=== PATIENT | female | born 1940 | race Caucasian/White ===

== ENCOUNTER 2020-01-22 11:59 | Outpatient (CLI) | payer MEDICARE, SELFPAY ==
--- NOTE | ~2020-01-22 | XR_ITS ---
EXAMINATION: XR lumbar spine 2-3V DATE: 01/22/2020 12:35 INDICATION: Chronic low back pain. TECHNIQUE: 3 views of lumbar spine were obtained. COMPARISON: CT abdomen and pelvis 05/28/2019 FINDINGS: There is 5 degrees dextrocurvature of thoracolumbar spine. There is 4 mm anterolisthesis of L3 on L4. Vertebral body heights are normal. There is mildly decreased disc height at L4-L5 and mode rately decreased disc height at L5-S1. There are endplate osteophytes at all lumbar levels. There is multilevel facet joint osteoarthritis, severe in lower lumbar spine. There is a total right hip arthr oplasty. IMPRESSION: 1. Moderate lumbar spondylosis. Reviewed, dictated and finalized at location A.
== END 2020-01-22 12:00 | disposition home or self-care (01) ==
PROVIDERS: PCP Internal Medicine
DX: M47.896 Other spondylosis, lumbar region (principal)
CPT/HCPCS: 72100

== ENCOUNTER 2020-03-09 14:39 | Outpatient (CLI) | payer MEDICARE, SELFPAY ==
[2020-03-19 21:48] LABS: Calprotectin, Stool 102 mcg/g
== END 2020-03-09 14:40 | disposition home or self-care (01) ==
PROVIDERS: PCP Internal Medicine; Visit Provider Internal Medicine Gastroenterology
DX: R19.7 Diarrhea, unspecified (principal); K51.919 Ulcerative colitis, unspecified with unspecified complications
CPT/HCPCS: 83993; 87045; 87046; 87427; 89055

== ENCOUNTER 2020-04-20 00:33 | Outpatient (CLI) | payer MEDICARE, SELFPAY ==
[2020-04-20 16:32] LABS: SARS-CoV-2 RNA PCR Negative
== END 2020-04-20 00:34 | disposition home or self-care (01) ==
LOC: ANHCOVIDDT 00:33
PROVIDERS: PCP Internal Medicine; Visit Provider Internal Medicine Gastroenterology
DX: Z03.818 Encounter for observation for suspected exposure to other biological agents ruled out (principal)
CPT/HCPCS: 87635; C9803; U0003

== ENCOUNTER 2020-04-22 00:35 | Day surgery (SDC) | payer MEDICARE, SELFPAY ==
[2020-04-09 09:59] VITALS: BMI 22.3
[2020-04-22 06:25] VITALS: BP 144/86; PULSE 90; RESP 20; TEMP 37.1; O2SAT 100; BMI 22.0
[2020-04-22] MEDS: LACTATED RINGERS 1,000 ML 150 ML IV CONT (06:42)
--- NOTE | 2020-04-22 07:11 | WPDANESEPPF ---
Anes - Initial Pre Proc Eval Procedure: Operation Date: 04/22/20 07:30 Proposed Procedures p Colonoscopy - Eduardo Voss MD Date/Time: 04/22/20 07:11 Surgeon: Eduardo Voss MD Pre Op Diagnosis: colitis,diarrhea Patient Data Age: 79 Gender: F Height: 5 ft 4 in Weight: 58.3 kg Last Vital Signs Temp 37.1 C 04/22/20 06:25 Pulse 90 04/22/20 06:25 Resp 20 04/22/20 06:25 BP 144/86 H 04/22/20 06:25 Pulse Ox 100 04/22/20 06:25 Allergies Allergy/AdvReac Type Severity Reaction Status Date / Time No Known Allergies Allergy Unverified 04/22/20 06:23 Home Medications Medication Instructions Recorded Confirmed Type atorvastatin 10 mg PO DAILY 06/21/19 04/09/20 History celecoxib [Celebrex] 200 mg PO BID 06/21/19 04/09/20 History nifedipine 30 mg PO DAILY 06/21/19 04/09/20 History mesalamine 250 mg 1,000 mg PO .qd #120 cap 08/19/19 04/09/20 Rx capsule,controlled release omeprazole 40 mg capsule,delayed 40 mg PO DAILY #30 cap 08/19/19 04/09/20 Rx release peg 3350-electrolytes 236 240 ml PO Q10M #4000 ml 02/26/20 04/03/20 Rx gram-22.74 gram-6.74 gram-5.86 gram solution dicyclomine 10 mg PO TID PRN 04/09/20 04/09/20 History infliximab-dyyb [Inflectra] See Rx Instructions .ROUTE .COMPLEX 04/09/20 04/09/20 History levothyroxine 100 mcg PO DAILY 04/09/20 04/09/20 History hmfwmqvhhmgw-vic-pdkf-FA-vit K 1 tablet PO DAILY 04/09/20 04/09/20 History [Adults Multivitamin] zolpidem 10 mg PO HS PRN 04/09/20 04/09/20 History Patient hx anesthesia problems: none Family hx anesthesia problems: none PMFSH Past Medical History Medical History Diarrhea GERD (gastroesophageal reflux disease) Hyperlipidemia Hypertension Rash Ulcerative colitis Family History Family History Mother Family history of osteoporosis Family history of arthritis Father Hypertension Sibling Family history of Parkinson's disease Social History Social History Smoking status: Never smoker Alcohol intake: never Gender identity (if verbalized by the patient): Female Spiritual care concerns: No Anes - Eval Final PreProcedure Day of Procedure 04/22/20 07:11 Patient weight: normal Heart: regular rate and rhythm Lungs: clear to auscultation Airway: Mallampati scale class II Neurological: alert and oriented Last oral intake: >/= 8 hours ASA classification: III Emergent: no Anesthetic plan: proceed Anesthesia type and monitoring: general GIVS and standard monitoring Informed Consent: The patient's anesthetic plan and its attendant risks and benefits were discussed with the patient/family/POA. Questions were solicited and answers provided to the satisfaction of the patient/family/POA.
--- NOTE | 2020-04-22 07:37 | PM.HPGS ---
History of Present Illness History of Present Illness Consent: Risks, benefits, and alternatives have been discussed and questions answered. Patient agrees to proceed with procedure. Chief complaint: colitis,diarrhea Narrative: Marnie Bonds is a 79 year old female with UC diagnosed february 2019 now using inflectra Review of Systems Constitutional: Constitutional: Denies headache(s) and Denies weakness Eyes: Eyes: Denies blurry vision ENT: Reports Normal hearing present, Denies headache(s) and Denies neck pain Cardiovascular: Cardiovascular: Denies chest pain and Denies dyspnea Respiratory: Respiratory: Denies dyspnea Gastrointestinal: Gastrointestinal: Reports no additional gastrointestinal complaints Genitourinary: Genitourinary: Denies dysuria Musculoskeletal: Musculoskeletal: Denies neck pain Integumentary/Breasts: Skin/Breast: Denies dry skin Neurologic: Reports Normal hearing present, Denies headache(s) and Denies weakness Psychiatric: Psychiatric: Denies anxiety Endocrine: Endocrine: Denies change in body appearance Hematologic/Lymphatic: Hematologic/Lymphatic: Denies easy bleeding Allergic/Immunologic: Allergic/Immunologic: Denies urticaria PMFSH Past Medical History Medical History Diarrhea GERD (gastroesophageal reflux disease) Hyperlipidemia Hypertension Rash Ulcerative colitis Family History Family History Mother Family history of osteoporosis Family history of arthritis Father Hypertension Sibling Family history of Parkinson's disease Social History Social History Smoking status: Never smoker Alcohol intake: never Gender identity (if verbalized by the patient): Female Spiritual care concerns: No Meds Home Medications and Allergies Home Medications Medication Instructions Recorded Confirmed Type atorvastatin 10 mg PO DAILY 06/21/19 04/09/20 History celecoxib [Celebrex] 200 mg PO BID 06/21/19 04/09/20 History nifedipine 30 mg PO DAILY 06/21/19 04/09/20 History mesalamine 250 mg 1,000 mg PO .qd #120 cap 08/19/19 04/09/20 Rx capsule,controlled release omeprazole 40 mg capsule,delayed 40 mg PO DAILY #30 cap 08/19/19 04/09/20 Rx release peg 3350-electrolytes 236 240 ml PO Q10M #4000 ml 02/26/20 04/03/20 Rx gram-22.74 gram-6.74 gram-5.86 gram solution dicyclomine 10 mg PO TID PRN 04/09/20 04/09/20 History infliximab-dyyb [Inflectra] See Rx Instructions .ROUTE .COMPLEX 04/09/20 04/09/20 History levothyroxine 100 mcg PO DAILY 04/09/20 04/09/20 History ycflzecalzzk-lou-huiy-FA-vit K 1 tablet PO DAILY 04/09/20 04/09/20 History [Adults Multivitamin] zolpidem 10 mg PO HS PRN 04/09/20 04/09/20 History Allergies Allergy/AdvReac Type Severity Reaction Status Date / Time No Known Allergies Allergy Unverified 04/22/20 06:23 Vital Signs Vital Signs - 24 hr 04/22/20 06:25 Temperature 98.8 F Pulse Rate 90 Respiratory Rate 20 Blood Pressure 144/86 H Pulse Oximetry 100 Exam Const: General: comfortable and no acute distress HENMT: General nose exam: Normal nares present Eyes: General: appearance normal, both eyes and all related structures Neck: Neck: no JVD Resp: Auscultation: clear to auscultation bilaterally Cardio: Rate: regular rate Rhythm: regular rhythm GI: Inspection: non-distended GI Palp: Yes Soft to palpation Skin: General skin exam: normal color Neuro: General: gait normal Speech: normal speech Extrem: General: normal to inspection Psych: Mental Status: mental status grossly normal Assessment and Plan Assessment and plan (1) Ulcerative colitis, unspecified with unspecified complications: Qualifiers: Ulcerative colitis location: ulcerative pancolitis Qualified Code(s): K51.019 - Ulcerative (chronic) pancolitis with unspe
[2020-04-22 07:57] VITALS: BP 110/55; PULSE 77; RESP 20; O2SAT 97
[2020-04-22 08:07] VITALS: BP 125/70; PULSE 78; RESP 19; O2SAT 100
[2020-04-22 08:17] VITALS: BP 148/61; PULSE 73; RESP 19; O2SAT 100
== END 2020-04-22 08:25 | disposition home or self-care (01) ==
PROVIDERS: PCP Internal Medicine; Visit Provider Internal Medicine Gastroenterology
PROC: 0DJD8ZZ Inspection of Lower Intestinal Tract, Via Natural or Artificial Opening Endoscopic (ICD-10-PCS; CPT 45378; principal; 2020-04-22 07:30)
DX: K51.90 Ulcerative colitis, unspecified, without complications (principal); K57.30 Diverticulosis of large intestine without perforation or abscess without bleeding; K64.8 Other hemorrhoids; K21.9 Gastro-esophageal reflux disease without esophagitis; I10 Essential (primary) hypertension; E78.5 Hyperlipidemia, unspecified
CPT/HCPCS: 45380; 88305; J2704; J7120

== ENCOUNTER 2021-03-26 11:08 | Outpatient (CLI) | payer MEDICARE, SELFPAY ==
--- NOTE | ~2021-03-26 | XR_ITS ---
XR abdomen/kub 1V DATE: 03/26/2021 11:21 INDICATION: Left sided kidney stone TECHNIQUE: AP projection, 2 views COMPARISON: 04/28/2019 CT abdomen pelvis FINDINGS: Approximately 2 mm calcification overlying the upper pole left kidney which might be a smal l calcified renal calculus. No other obvious urinary tract calculus is noted. Noncontrast CT abdomen pelvis examination would be more definitive for identification of urinary tract calculi. The psoas shadows are intact. No visceromegaly. There is a moderately prominent amount fecal material within the colon but no evidence of bowel obstr uction. Cardiomegaly. Aortic calcification. The lower lung zones are clear. Status post right total hip arthroplasty Mild dextro scoliosis of the lumbar spine; degenerative disc disease of the lumbar spine. IMPRESSION: Nonspecific abdomen Reviewed, dictated and finalized at Location A. Reviewed, dictated and finalized at location A. IMPRESSION: Nonspecific abdomen
== END 2021-03-26 11:09 | disposition home or self-care (01) ==
PROVIDERS: PCP Internal Medicine; Visit Provider Nurse Practitioner Family
DX: N20.0 Calculus of kidney (principal)
CPT/HCPCS: 74018

== ENCOUNTER 2022-04-15 10:30 | Outpatient (CLI) | payer MEDICARE, SELFPAY ==
--- NOTE | ~2022-04-15 | XR_ITS ---
EXAMINATION: XR abdomen/kub 1V INDICATION: Left renal stone follow-up TECHNIQUE: Supine views of the abdomen were obtained on 2 radiographs. COMPARISON: 03/26/2021 FINDINGS: No definite urolithiasis is identified. A moderate volume of colonic stool is present. The visualized lung bases are clear. Bilateral breast implants are noted. Changes of total right hip arth roplasty are noted. There is moderate osteoarthritis of the left hip. Severe lumbar spondylosis is no brie. IMPRESSION: 1. No definite urolithiasis identified. Reviewed, dictated and finalized at location A.
== END 2022-04-15 10:31 | disposition home or self-care (01) ==
PROVIDERS: PCP Internal Medicine; Visit Provider Nurse Practitioner Adult Health
DX: N20.0 Calculus of kidney (principal)
CPT/HCPCS: 74018

== ENCOUNTER 2022-05-25 12:03 | Day surgery (SDC) | payer MEDICARE, SELFPAY ==
[2022-05-12 09:58] VITALS: BMI 22.8
[2022-05-25 12:50] VITALS: BP 170/84; PULSE 70; RESP 16; TEMP 36.9; O2SAT 100
[2022-05-25] MEDS: LACTATED RINGERS 1,000 ML 150 ML IV CONT (13:26)
--- NOTE | 2022-05-25 13:26 | SUR.PREOP ---
1315 pt/family informed of delay w/surgeon/acknowledges understanding/comfort measures provided.
--- NOTE | 2022-05-25 14:12 | WPDANESEPPF ---
Anes - Initial Pre Proc Eval Procedure: Operation Date: 05/25/22 13:45 Proposed Procedures p Esophagogastroduodenoscopy - Eduardo Voss MD Date/Time: 05/25/22 14:12 Surgeon: Eduardo Voss MD Pre Op Diagnosis: Epigastric Pain Patient Data Age: 81 Gender: F Height: 1.63 m Weight: 59.6 kg Last Vital Signs Temp 36.9 C 05/25/22 12:50 Pulse 70 05/25/22 12:50 Resp 16 05/25/22 12:50 BP 170/84 H 05/25/22 12:50 Pulse Ox 100 05/25/22 12:50 O2 Del Method Room Air 05/25/22 12:50 Allergies Allergy/AdvReac Type Severity Reaction Status Date / Time No Known Allergies Allergy Verified 05/25/22 12:43 Home Medications Medication Instructions Recorded Confirmed Type atorvastatin 10 mg tablet 10 mg PO DAILY 06/21/19 05/25/22 History nifedipine 30 mg tablet,extended 30 mg PO DAILY 06/21/19 05/25/22 History release 24 hr levothyroxine 100 mcg tablet 100 mcg PO DAILY 04/09/20 05/25/22 History multivit with minerals-iron 18 1 tablet PO DAILY 04/09/20 05/25/22 History mg-folic ac 400 mcg-vit K 25 mcg tablet (Adults Multivitamin) zolpidem 10 mg tablet 10 mg PO HS PRN Insomnia 04/09/20 05/25/22 History dicyclomine 10 mg capsule 10 mg PO TID PRN cramps #270 caps 07/15/21 05/25/22 Rx omeprazole 40 mg capsule,delayed 40 mg PO DAILY #90 caps 09/02/21 05/25/22 Rx release prednisone 5 mg tablet 5 mg PO DAILY 09/02/21 05/25/22 History tofacitinib 11 mg tablet,extended 11 mg PO DAILY 09/02/21 05/25/22 History release 24 hr (Xeljanz XR) mesalamine 250 mg capsule,extended See Rx Instructions .Route 11/23/21 05/25/22 Rx release (Pentasa) .COMPLEX #360 caps tramadol 50 mg tablet (Ultram) 50 mg PO TID PRN Pain, Moderate 05/12/22 05/25/22 History Patient hx anesthesia problems: none Family hx anesthesia problems: none Results Review: All pre-operative results and documents have been reviewed as part of the pre-operative evaluation. [facility] Past Medical History Medical History Arthritis Diarrhea GERD (gastroesophageal reflux disease) Hyperlipidemia Hypertension Rash Ulcerative colitis Family History Family History Mother Family history of osteoporosis Family history of arthritis Father Hypertension Sibling Family history of Parkinson's disease Social History Social History Smoking status: Never smoker Alcohol intake: current Substance use type: does not use Living arrangements: with family Gender identity (if verbalized by the patient): Female Spiritual care concerns: No Anes - Eval Final PreProcedure Day of Procedure 05/25/22 14:12 Patient weight: normal Heart: regular rate and rhythm Lungs: clear to auscultation Airway: Mallampati scale class II Neurological: alert and oriented Last oral intake: >/= 8 hours ASA classification: III Emergent: no Anesthetic plan: proceed Anesthesia type and monitoring: general GIVS and standard monitoring Results Review: All pre-operative results and documents have been reviewed as part of the pre-operative evaluation. Informed Consent: The patient's anesthetic plan and its attendant risks and benefits were discussed with the patient/family/POA. Questions were solicited and answers provided to the satisfaction of the patient/family/POA.
--- NOTE | 2022-05-25 14:32 | PM.HPGS ---
History of Present Illness History of Present Illness Consent: Risks, benefits, and alternatives have been discussed and questions answered. Patient agrees to proceed with procedure. Chief complaint: Epigastric Pain Narrative: Marnie Bonds is a 81 year old female with more gerd symptoms but better after ppi increased to twice daily Review of Systems Constitutional: Constitutional: Denies headache(s) and Denies weakness Eyes: Eyes: Denies blurry vision ENT: Reports Normal hearing present, Denies headache(s) and Denies neck pain Cardiovascular: Cardiovascular: Denies chest pain and Denies dyspnea Respiratory: Respiratory: Denies dyspnea Gastrointestinal: Gastrointestinal: Reports no additional gastrointestinal complaints Genitourinary: Genitourinary: Denies dysuria Musculoskeletal: Musculoskeletal: Denies neck pain Integumentary/Breasts: Skin/Breast: Denies dry skin Neurologic: Reports Normal hearing present, Denies headache(s) and Denies weakness Psychiatric: Psychiatric: Denies anxiety Endocrine: Endocrine: Denies change in body appearance Hematologic/Lymphatic: Hematologic/Lymphatic: Denies easy bleeding Allergic/Immunologic: Allergic/Immunologic: Denies urticaria PMFSH Past Medical History Medical History Arthritis Diarrhea GERD (gastroesophageal reflux disease) Hyperlipidemia Hypertension Rash Ulcerative colitis Family History Family History Mother Family history of osteoporosis Family history of arthritis Father Hypertension Sibling Family history of Parkinson's disease Social History Social History Smoking status: Never smoker Alcohol intake: current Substance use type: does not use Living arrangements: with family Gender identity (if verbalized by the patient): Female Spiritual care concerns: No Meds Home Medications and Allergies Home Medications Medication Instructions Recorded Confirmed Type atorvastatin 10 mg tablet 10 mg PO DAILY 06/21/19 05/25/22 History nifedipine 30 mg tablet,extended 30 mg PO DAILY 06/21/19 05/25/22 History release 24 hr levothyroxine 100 mcg tablet 100 mcg PO DAILY 04/09/20 05/25/22 History multivit with minerals-iron 18 1 tablet PO DAILY 04/09/20 05/25/22 History mg-folic ac 400 mcg-vit K 25 mcg tablet (Adults Multivitamin) zolpidem 10 mg tablet 10 mg PO HS PRN Insomnia 04/09/20 05/25/22 History dicyclomine 10 mg capsule 10 mg PO TID PRN cramps #270 caps 07/15/21 05/25/22 Rx omeprazole 40 mg capsule,delayed 40 mg PO DAILY #90 caps 09/02/21 05/25/22 Rx release prednisone 5 mg tablet 5 mg PO DAILY 09/02/21 05/25/22 History tofacitinib 11 mg tablet,extended 11 mg PO DAILY 09/02/21 05/25/22 History release 24 hr (Xeljanz XR) mesalamine 250 mg capsule,extended See Rx Instructions .Route 11/23/21 05/25/22 Rx release (Pentasa) .COMPLEX #360 caps tramadol 50 mg tablet (Ultram) 50 mg PO TID PRN Pain, Moderate 05/12/22 05/25/22 History Allergies Allergy/AdvReac Type Severity Reaction Status Date / Time No Known Allergies Allergy Verified 05/25/22 12:43 Vital Signs Vital Signs - 24 hr 05/25/22 12:50 Temperature 98.4 F Pulse Rate 70 Respiratory Rate 16 Blood Pressure 170/84 H Pulse Oximetry 100 Oxygen Delivery Room Air Exam Const: General: comfortable and no acute distress HENMT: Face/Nose/Sinus: Normal nares present Eyes: General: appearance normal, both eyes and all related structures Neck: Neck: no JVD Resp: Auscultation: clear to auscultation bilaterally Cardio: Rate: regular rate Rhythm: regular rhythm GI: Inspection: non-distended GI Palp: Yes Soft to palpation Skin: General skin exam: normal color Neuro: General: gait normal Speech: normal speech Extrem: General: normal to inspection Psych: Ment
[2022-05-25 14:39] VITALS: BP 159/65; PULSE 78; RESP 16; O2SAT 96
[2022-05-25 14:49] VITALS: BP 148/67; PULSE 75; RESP 16; O2SAT 97
--- NOTE | 2022-05-25 14:52 | WPDANESPN ---
Anes - Prog Note Post-Op Date/Time: 05/25/22 14:52 Cardiovascular status: normal Respiratory status: normal Airway patency: baseline Mental status: baseline Post-Op hydration status: normal Vital Signs: Last Vital Signs Temp 36.9 C 05/25/22 12:50 Pulse 78 05/25/22 14:39 Resp 16 05/25/22 14:39 BP 159/65 H 05/25/22 14:39 Pulse Ox 96 05/25/22 14:39 O2 Del Method Room Air 05/25/22 14:39 Pain Score (VAS): 0 I/O: Intake & Output 05/24/22 05/25/22 05/25/22 23:59 07:59 15:59 Intake Total 300 Balance 300 Patient Feedback: Patient satisfied with anesthetic care.
--- NOTE | 2022-05-25 14:56 | SUR.PHASEII ---
PT AWAKE AND ALERT. DENIES PAIN. DRINKING JUICE. SPOUSE AT BEDSIDE
[2022-05-25 15:00] VITALS: BP 171/74; PULSE 76; RESP 16
--- NOTE | 2022-05-25 15:01 | SUR.PHASEII ---
PT AWAKE AND ALERT. DENIES PAIN. STATES SHE IS READY TO GO HOME.
== END 2022-05-25 15:09 | disposition home or self-care (01) ==
PROVIDERS: PCP Internal Medicine; Visit Provider Internal Medicine Gastroenterology
PROC: 0DJ08ZZ Inspection of Upper Intestinal Tract, Via Natural or Artificial Opening Endoscopic (ICD-10-PCS; CPT 43235; principal; 2022-05-25 13:45)
DX: K21.9 Gastro-esophageal reflux disease without esophagitis (principal)
CPT/HCPCS: 43239

== ENCOUNTER 2022-05-25 14:05 | Outpatient (NON) | payer MEDICARE, SELFPAY | END 2022-05-25 14:06 | disposition home or self-care (01) | LOC: ANHLAB 05-26 14:05 | PROVIDERS: PCP Internal Medicine; Visit Provider Internal Medicine Gastroenterology | DX: K21.9 Gastro-esophageal reflux disease without esophagitis (principal) | CPT/HCPCS: 88305 ==

== ENCOUNTER 2022-06-15 12:51 | Outpatient (CLI) | payer MEDICARE, SELFPAY ==
--- NOTE | ~2022-06-15 | CT_ITS ---
EXAMINATION: CT abdomen pelvis wo con DATE: 06/15/2022 13:32 INDICATION: Chronic cystitis without hematuria TECHNIQUE: Computed tomography (CT) of the abdomen and pelvis was performed without intravenous contr ast. Automated exposure control and iterative reconstruction technique were employed. Exam dose: 246 .98 mGy-cm total exam DLP. COMPARISON: 06/15/2022 KUB 04/28/2019 CT abdomen pelvis with IV contrast material FINDINGS: There is minimal discoid atelectasis or scarring at the lung bases. No basilar consolidatio n. Cardiomegaly. No pericardial or pleural effusion. Bilateral augmentation mammoplasty is noted. Multiple hepatic cysts are again noted. The gallbladder is present and appears unremarkable. No peric holecystic fluid or fat stranding. No bile duct or pancreatic duct dilatation. No pancreatic mass les ion or calcification is noted. Normal splenic size. No adrenal space-occupying mass lesion. Kidneys are unremarkable on this limited noncontrast examinat ion. No urinary tract calculus or hydroureteronephrosis. The urinary bladder appears unremarkable. No gallbladder wall thickening or pericystic fat infiltration. The uterus appears to be absent or atrop hic. No adnexal mass lesion. There is atherosclerotic calcification but no aneurysm of the abdominal aorta or iliac arteries. No i ntraperitoneal or retroperitoneal or pelvic mass lesion or adenopathy or ascites is evident. There is diverticulosis of left and right colon; no CT evidence of diverticulitis. No bowel obstructi on or intraperitoneal free air. Small fat-containing umbilical hernia. Status post right total hip arthroplasty. There is grade 1 anterolisthesis at L4-5 due to degenerative change at the apophyseal joints. Moderat e degenerative disc disease at L4-5. Severe degenerative disc disease and minimal retrolisthesis at L 5-S1. IMPRESSION: Multiple hepatic cysts are again noted Diverticulosis of left and right colon; no evidence of diverticulitis Status post right total hip arthroplasty Reviewed, dictated and finalized at Location [facility]. Reviewed, dictated and finalized at location A.
--- NOTE | ~2022-06-15 | XR_ITS ---
EXAM: XR abdomen/kub 1V DATE: 06/15/2022 13:27 HISTORY: CHRONIC CYSTITIS W/O HEMATURIA . COMPARISON: 04/15/2022. FINDINGS: Partially visualized, uncomplicated appearing right hip arthroplasty hardware. Normal kindra l gas pattern. No organomegaly. Scattered vascular calcifications. Degenerative disc disease in the l umbar spine. Moderate left hip osteoarthritis. Osteitis pubis. IMPRESSION: No radiographic findings to explain symptoms of chronic cystitis and hematuria. Reviewed, dictated and finalized at location K. IMPRESSION: No radiographic findings to explain symptoms of chronic cystitis an d hematuria.
== END 2022-06-15 12:52 | disposition home or self-care (01) ==
PROVIDERS: PCP Internal Medicine; Visit Provider Nurse Practitioner Adult Health
DX: N30.20 Other chronic cystitis without hematuria (principal); K76.89 Other specified diseases of liver; K57.30 Diverticulosis of large intestine without perforation or abscess without bleeding
CPT/HCPCS: 74018; 74176

== ENCOUNTER 2022-12-27 11:45 | Outpatient (CLI) | payer MEDICARE, SELFPAY ==
--- NOTE | ~2022-12-27 | XR_ITS ---
XR lumbar spine 2-3V 12/27/2022 12:08 Indication: Low back pain Procedure: 3 views lumbar spine Comparison: 01/22/2020 Findings: There is disc narrowing at L4-5 and L5-S1. There is chronic grade 1 spondylolisthesis at L4 -5 secondary to facet hypertrophy. There are also facet degenerative changes at L3-4 and L5-S1. No ac [place] fracture or traumatic malalignment. There is atherosclerosis of the abdomen. There is dextroscoli osis. Moderate colonic fecal loading. Are Impression: 1: Moderate lumbar spondylosis without significant interval change. Reviewed, dictated and finalized at location L. Impression: 1: Moderate lumbar spondylosis without significant interval change.
== END 2022-12-27 11:46 | disposition home or self-care (01) ==
PROVIDERS: PCP Internal Medicine; Visit Provider Internal Medicine
DX: M47.896 Other spondylosis, lumbar region (principal)
CPT/HCPCS: 72100

== ENCOUNTER 2023-02-09 13:47 | Outpatient (CLI) | payer MEDICARE, SELFPAY ==
--- NOTE | ~2023-02-09 | XR_ITS ---
EXAMINATION: XR abdomen/kub 1V INDICATION: Nausea and vomiting TECHNIQUE: Supine views of the abdomen were obtained on 2 radiographs. COMPARISON: 06/15/2022 FINDINGS: There are no dilated loops of bowel. A large volume of colonic stool is present. Changes of right total hip arthroplasty are noted. There is moderate osteoarthritis of the left hip. IMPRESSION: 1. Constipation. Reviewed, dictated and finalized at location L. IMPRESSION: 1. Constipation.
[2023-02-09 15:03] LABS: Hematocrit 38.3 % (37.0-47.0); Mean Corpuscular HGB Conc 33.9 g/dl (32-36); Mean Corpuscular Hemoglobin 31.9 pg (26-34); Mean Corpuscular Volume 94.1 fl (80-100); Mean Platelet Volume 8.9 fl (7.4-10.4); Platelet Count Result 280 k/mm3 (150-375); Red Blood Count 4.07 M/mm3 (4.2-5.4); Red Cell Distribution Width 13.1 % (11.5-14.5); White Blood Count 7.3 K/mm3 (4.5-10.0)
[2023-02-09 15:17] LABS: Alanine Aminotransferase 25 U/L (6-35); Albumin Level 4.3 g/dL (3.5-5.1); Alkaline Phosphatase 49 U/L (38-126); Amylase 66 U/L (30-110); Anion Gap 7 mmol/L (8-16); Aspartate Amino Transferase 29 U/L (14-36); Bilirubin,Total 0.5 mg/dL (0.2-1.3); Blood Urea Nitrogen 34 mg/dL (7-17); CRP < 0.5 mg/dL (<1.0); Calcium 9.8 mg/dL (8.4-10.2); Carbon Dioxide 25 mmol/L (22-30); Chloride 100 mmol/L (98-107); Estimated Glomerular Filt Rate 60; Glucose 112 mg/dL (65-110); Lipase 135 U/L (23-300); Potassium 3.9 mmol/L (3.4-5.0); Sodium 132 mmol/L (137-145)
[2023-02-09 15:27] LABS: Erythrocyte Sedimentation Rate 20 mm/hr (0-20)
== END 2023-02-09 13:48 | disposition home or self-care (01) ==
LOC: ANHIMG 13:52
PROVIDERS: Nurse Practitioner; PCP Internal Medicine; Visit Provider Nurse Practitioner Adult Health
DX: K59.00 Constipation, unspecified (principal); R14.0 Abdominal distension (gaseous); R68.81 Early satiety; R11.2 Nausea with vomiting, unspecified; K51.919 Ulcerative colitis, unspecified with unspecified complications; R10.819 Abdominal tenderness, unspecified site; K21.9 Gastro-esophageal reflux disease without esophagitis
CPT/HCPCS: 36415; 74018; 80053; 82150; 83690; 85027; 85652; 86140

== ENCOUNTER 2023-02-17 13:39 | Outpatient (CLI) | payer MEDICARE, SELFPAY ==
--- NOTE | ~2023-02-17 | CT_ITS ---
EXAMINATION: CT abdomen pelvis w con DATE: 02/17/2023 14:06 INDICATION: Nausea. Early satiety. TECHNIQUE: Computed tomography (CT) of the abdomen and pelvis was performed with 100 mL Omnipaque 350 intravenous contrast. Automated exposure control and iterative reconstruction technique were employe d. The dose-length product was 302.29 mGy-cm. COMPARISON: CT abdomen and pelvis 06/15/2022 FINDINGS: The visualized portions of the lung bases demonstrate mild atelectasis. No pleural effusion . Breast implants are noted. Cardiomegaly is noted. No pericardial effusion. There are coronary arter y calcifications. There are cysts in the liver measuring up to 3.1 cm. The gallbladder, spleen, pancr eas, and adrenal glands are normal. There are cysts in the kidneys measuring up to 7 mm on the right. There is calcified atherosclerosis of the aorta and many of the other arteries. There is diverticulo sis of the colon without evidence of diverticulitis. There are no dilated loops of bowel. The appendi x is not visualized. There are no pathologically enlarged lymph nodes. There is no free intraperitone al fluid. There is a total right hip arthroplasty. There is severe lumbar spondylosis. IMPRESSION: 1. No etiology for the patient's symptoms. Reviewed, dictated and finalized at location A.
== END 2023-02-17 13:40 | disposition home or self-care (01) ==
PROVIDERS: PCP Internal Medicine; Visit Provider Nurse Practitioner
DX: R10.819 Abdominal tenderness, unspecified site (principal); R14.0 Abdominal distension (gaseous); R68.81 Early satiety; R11.2 Nausea with vomiting, unspecified
CPT/HCPCS: 74177; Q9967

== ENCOUNTER 2023-02-22 09:01 | Outpatient (CLI) | payer MEDICARE, SELFPAY ==
--- NOTE | ~2023-02-22 | NM_ITS ---
EXAM: NM gastric emptying study DATE: 02/22/2023 16:06 INDICATION: Nausea and vomiting. Early satiety. TECHNIQUE: A gastric emptying study was performed using the methodology of Daniel RUIZ, et al. J Nucl Med 2007; 48:568-572. The patient was given a meal consisting of 2 scrambled eggs labeled with 1.080 mCi Tc-99m sulfur colloid, 2 slices of toast, two packages of jam, and approximately 120 mL of water . Simultaneous anterior and posterior 1-min images of the abdomen were obtained with the patient supi ne at multiple time points over a total period of 4 hours. The geometric mean of anterior and posteri or views was determined, and the percentage retention was calculated for each time point. COMPARISON: CT abdomen and pelvis 02/17/2023 FINDINGS: Gastric retention of the radiotracer-labeled meal was 70%, 37%, and 6% at the 1-hour, 2-ho ur, and 4-hour time points, respectively. With this technique, apparent rapid gastric emptying is sug gested by <30% gastric retention at 1 hour. Delayed gastric emptying is defined by gastric retention of >90% at 1 hour, >60% retention at 2 hours, or >10% retention at 4 hours. IMPRESSION: 1. Normal gastric emptying. Reviewed, dictated and finalized at location E. IMPRESSION: 1. Normal gastric emptying.
== END 2023-02-22 09:02 | disposition home or self-care (01) ==
PROVIDERS: PCP Internal Medicine; Visit Provider Nurse Practitioner
DX: R11.2 Nausea with vomiting, unspecified (principal); R68.81 Early satiety; R14.0 Abdominal distension (gaseous); K21.9 Gastro-esophageal reflux disease without esophagitis
CPT/HCPCS: 78264; A9541

== ENCOUNTER 2023-04-10 15:46 | Outpatient (NON) | payer MEDICARE, SELFPAY ==
[2023-04-10 17:40] LABS: Color Synovial Fluid Yellow (Colorless); Crystals Synovial Fluid None Seen (None Seen); Source Synovial Fluid Synovial fluid
[2023-04-10 17:41] LABS: Appearance Synovial Fluid Hazy (Clear)
[2023-04-10 17:42] LABS: Lymphocytes Synovial Fluid 34 %; Monocytes Synovial Fluid 62 %; Neutrophils Synovial Fluid 4 % (0-25)
[2023-04-11 13:39] LABS: RBC Synovial Fluid 3000 /uL (0-0)
[2023-04-11 13:47] LABS: Nucleated Cell Synovial Fluid 78 /uL (0-200)
== END 2023-04-10 15:47 | disposition home or self-care (01) ==
LOC: ANHLAB 15:48
PROVIDERS: PCP Internal Medicine; Visit Provider Orthopaedic Surgery
DX: M17.12 Unilateral primary osteoarthritis, left knee (principal); M25.462 Effusion, left knee
CPT/HCPCS: 87070; 87075; 87205; 89051; 89060

== ENCOUNTER 2023-06-26 14:34 | Outpatient (CLI) | payer MEDICARE, SELFPAY ==
--- NOTE | ~2023-06-26 | US_ITS ---
EXAMINATION: US venous doppler [facility] DATE: 06/26/2023 16:36 INDICATION: Left lower limb edema. TECHNIQUE: Grayscale ultrasound images without and with compression and Doppler ultrasound images of the left lower extremity veins were obtained. COMPARISON: None. FINDINGS: The visualized portions of left common femoral vein, profunda (deep) femoral vein, femoral vein, popl iteal vein, peroneal veins, posterior tibial veins, and greater saphenous vein outflow are patent. IMPRESSION: 1. No deep venous thrombosis. Reviewed, dictated and finalized at location A. [employer]
== END 2023-06-26 14:35 | disposition home or self-care (01) ==
PROVIDERS: PCP Internal Medicine; Visit Provider Orthopaedic Surgery
DX: R60.0 Localized edema (principal)
CPT/HCPCS: 93971

== ENCOUNTER 2023-07-20 13:04 | Emergency (ER) | payer MEDICARE, SELFPAY ==
--- NOTE | ~2023-07-20 | CT_ITS ---
EXAMINATION: CT abdomen pelvis w con DATE: 07/20/2023 18:25 INDICATION: Abdominal pain. Diarrhea. Nausea. TECHNIQUE: Computed tomography (CT) of the abdomen and pelvis was performed with 100 mL Omnipaque 350 intravenous contrast. Automated exposure control and iterative reconstruction technique were employe d. The dose-length product was 277.13 mGy-cm. COMPARISON: CT abdomen and pelvis 02/17/2023 FINDINGS: The visualized portions of the lung bases demonstrate mild atelectasis. Cardiomegaly is not ed. There are coronary artery calcifications. No pericardial effusion. There are bilateral breast imp lants. There are cysts in the liver measuring up to 3.4 cm. The spleen, pancreas, and adrenal glands are normal. There is cortical thinning of the kidneys. There are cysts in the kidneys measuring up to 6 mm on the right. There is calcified atherosclerosis of the aorta and many of the other arteries. T here is diverticulosis of the colon without evidence of diverticulitis. The appendix is not visualize d. There are no pathologically enlarged lymph nodes. There is no free intraperitoneal fluid. There is a total right hip arthroplasty. There is severe lumbar and lower thoracic spondylosis. IMPRESSION: 1. No etiology for the patient's symptoms. Reviewed, dictated and finalized at location E. ICAL SERVICES DIRECTOR
[2023-07-20 13:05] VITALS: BP 180/101; PULSE 94; RESP 18; TEMP 36.8; O2SAT 99
[2023-07-20 16:10] VITALS: BP 148/80; PULSE 98; RESP 18; O2SAT 100
[2023-07-20 17:56] LABS: Basophils Percent Auto 0.1 % (0.2-1.2); Hematocrit 35.8 % (37.0-47.0); Hemoglobin 12.2 g/dL (12.0-15.0); Immature Granulocyte Absolute 0.02 K/mm3 (0.00-0.031); Immature Granulocyte Percent A 0.3 % (0-0.5); Lymphocytes Absolute Auto 1.32 K/mm3 (0.9-3.2); Lymphocytes Percent Auto 17.9 % (18.3-44.2); Mean Corpuscular HGB Conc 34.1 g/dl (32-36); Mean Corpuscular Hemoglobin 30.6 pg (26-34); Mean Corpuscular Volume 89.7 fl (80-100); Mean Platelet Volume 9.3 fl (7.4-10.4); Monocytes Absolute Auto 0.6 K/mm3 (0.1-0.6); Monocytes Percent Auto 8.3 % (2.6-8.5); Neutrophils Absolute Auto 5.4 K/mm3 (1.3-6.7); Neutrophils Percent Auto 73.4 % (45.5-73.1); Platelet Count Result 236 k/mm3 (150-375); Red Blood Count 3.99 M/mm3 (4.2-5.4); Red Cell Distribution Width 12.5 % (11.5-14.5); White Blood Count 7.4 K/mm3 (4.5-10.0)
[2023-07-20 18:06] LABS: Alanine Aminotransferase 22 U/L (6-35); Albumin Level 4.6 g/dL (3.5-5.1); Alkaline Phosphatase 73 U/L (38-126); Anion Gap 12 mmol/L (8-16); Aspartate Amino Transferase 34 U/L (14-36); Bilirubin,Total 0.6 mg/dL (0.2-1.3); Blood Urea Nitrogen 31 mg/dL (7-17); Calcium 10.3 mg/dL (8.4-10.2); Carbon Dioxide 21 mmol/L (22-30); Chloride 97 mmol/L (98-107); Estimated CRCL calculation 38 ml/min; Estimated Glomerular Filt Rate > 60; Glucose 123 mg/dL (65-110); Lipase 128 U/L (23-300); Potassium 3.6 mmol/L (3.4-5.0); Sodium 130 mmol/L (137-145)
[2023-07-20] MEDS: SODIUM CHLORIDE 0.9% IV 500 ML 999 ML IV CONT (18:10)
--- NOTE | 2023-07-20 18:10 | ED.ABDPAIN ---
HPI - Abdominal Pain General Chief Complaint: Abdominal Pain Stated Complaint: abdominal pain Time Seen by Provider: 07/20/23 17:47 Source: patient Mode of arrival: ambulatory Limitations: no limitations History of Present Illness HPI narrative: This is a 82 year old female that presents to the ER for abdominal pain and diarrhea. Ongoing over the last 4 days. Reports history of ulcerative colitis. She was started on Budesonide today by her GI doctor, but they were unable to see her which prompted her to be seen in the ER. Reports some nausea. Denies fevers or vomiting. Related Data Home Medications Medication Instructions Recorded Confirmed atorvastatin 10 mg tablet 10 mg PO DAILY 06/21/19 02/09/23 nifedipine 30 mg tablet,extended 30 mg PO DAILY 06/21/19 02/09/23 release 24 hr levothyroxine 100 mcg tablet 100 mcg PO DAILY 04/09/20 02/09/23 multivit with minerals-iron 18 1 tablet PO DAILY 04/09/20 02/09/23 mg-folic ac 400 mcg-vit K 25 mcg tablet (Adults Multivitamin) zolpidem 10 mg tablet 10 mg PO HS PRN Insomnia 04/09/20 02/09/23 tramadol 50 mg tablet (Ultram) 50 mg PO TID PRN Pain, Moderate 05/12/22 02/09/23 cephalexin 250 mg capsule 250 mg PO Q12H 02/09/23 02/09/23 Allergies Allergy/AdvReac Type Severity Reaction Status Date / Time No Known Allergies Allergy Verified 07/20/23 13:05 Review of Systems Review of Systems: CONSTITUTIONAL: Denies fever GASTROINTESTINAL: Reports abdominal pain, nausea, and diarrhea. Denies vomiting GENITOURINARY: Denies dysuria All systems reviewed & are unremarkable except as noted in HPI and below PMFSH Past Medical History Medical History (Updated 07/20/23 @ 20:00 by Letitia Polanco PA-C) Abdominal tenderness Appetite loss Arthritis Bloating Colitis Diarrhea Early satiety GERD (gastroesophageal reflux disease) Hiatal hernia Hyperlipidemia Hypertension Microscopic colitis Nausea and vomiting Rash Rectal bleeding Rheumatoid arthritis Ulcerative colitis Family History Family History Mother Family history of osteoporosis Family history of arthritis Father Hypertension Sibling Family history of Parkinson's disease Social History Social History Smoking status: Never smoker Alcohol intake: current Substance use type: does not use Living arrangements: with family Gender identity (if verbalized by the patient): Female Spiritual care concerns: No Exam Narrative: GENERAL: Well-appearing, well-nourished, and in no acute distress. HEAD: Normocephalic, atraumatic. EYES: EOMI. CHEST: Clear to auscultation. No respiratory distress. No wheezes rales or rhonchi HEART: Regular rate and rhythm. No murmur heard. Normal peripheral pulses. ABDOMEN: Soft, nondistended, normal active bowel sounds. Tender to palpation throughout the abdomen, without guarding EXTREMITIES: Normal range of motion. No edema. SKIN: Warm, dry, no rash. NEURO: No focal deficits. Alert and oriented x3. PSYCH: Normal mood and affect Course Course Emergency Course: Patient updated on workup and agrees with plan of care Consultations Consultation #1: Spoke with Dr. Voss about patient and workup. Reports she has history of microscopic colitis. Agrees with continuing Budesonide and adding on Flagyl. She is to follow up in clinic Date: 07/20/23 Time: 19:18 Vital Signs Vital signs: Vital Signs Temperature 98.3 F 07/20/23 13:05 Pulse Rate 94 07/20/23 13:05 Respiratory Rate 18 07/20/23 13:05 Blood Pressure 180/101 H 07/20/23 13:05 Pulse Oximetry 99 07/20/23 13:05 Oxygen Delivery Room Air 07/20/23 13:05 Temperature 98.3 F 07/20/23 13:05 Pulse Rate 88 07/20/23 18:29 Respiratory Rate 16 07/20/23 18:29 Blood Pressure 145/72 H 07/20/23 18:29 Pulse Oximetry 100 07/20/23 18:29 Oxygen Delivery Room Air 07/20/23
[2023-07-20] MEDS: ONDANSETRON INJ 4 MG/2 ML VIAL IV PUSH (18:11)
[2023-07-20 18:29] VITALS: BP 145/72; PULSE 88; RESP 16; O2SAT 100
[2023-07-20] MEDS: MORPHINE SULFATE (*CRX) 4 MG/ML INJ IV PUSH (18:29)
[2023-07-20 19:07] LABS: Add Urine Microscopic? YES; Appearance Urine Clear (Clear); Bacteria Urine None Seen /hpf; Bilirubin Urine Negative (Negative); Blood Urine 1+ (Negative); Color Urine Yellow (Yellow); Glucose Urine UA Trace mg/dL (Negative); Ketones Urine Negative (Negative); Leukocyte Esterase Ur Negative LEU/UL (Negative); Need Manual Microscopic Reviewed; Nitrate Urine Negative (Negative); Non Pathogenic Casts 0-2; Protein Urine Negative (Negative); RBC Urine 0-2 /hpf (0-2); Specific Grav Ur 1.018 (1.001-1.035); Squamous Epithelial Cell Urine None seen /hpf (Few); Urobilinogen Urine 0.2 mg/dL (<2.0); WBC Urine 0-5 /hpf
[2023-07-20 19:47] LABS: Influenza A QL RT-PCR Negative (Negative); Influenza B QL RT-PCR Negative (Negative); SARS-CoV-2 RNA PCR Positive (Negative)
== END 2023-07-20 20:40 | disposition home or self-care (01) ==
PROVIDERS: Emergency Medicine; Emergency Provider Physician Assistant; PCP Internal Medicine
DX: U07.1 COVID-19 (principal); K52.839 Microscopic colitis, unspecified; K51.90 Ulcerative colitis, unspecified, without complications; K21.9 Gastro-esophageal reflux disease without esophagitis; K44.9 Diaphragmatic hernia without obstruction or gangrene; E78.5 Hyperlipidemia, unspecified; I10 Essential (primary) hypertension; M06.9 Rheumatoid arthritis, unspecified; M19.90 Unspecified osteoarthritis, unspecified site
CPT/HCPCS: 36415; 74177; 80053; 81001; 83690; 85025; 87636; 96361; 96374; 96375; 99284; J2270; J2405; J7040; Q9967

== ENCOUNTER 2024-01-15 10:06 | Outpatient (CLI) | payer MEDICARE, SELFPAY ==
--- NOTE | ~2024-01-15 | DEXA_ITS ---
Bone Density Report Name: SANDRA HOOPER Age: 83 Sex: Female Ethnicity: White Date of : 1940 Indication: postmenopausal; screening for osteoporosis; height loss; inflammatory bowel disease; history of glucocorticoids; hysterectomy; rheumatoid arthritis; Referring Provider: KANIKA*Ryne, KARLIE Study: Bone densitometry was performed. Exam Date: January 15, 2024 Accession number: [id number] Bone Density: Region BMD T-score Z-score Classification AP Spine(L1-L4) 0.893 -1.4 1.4 Osteopenia Femoral Neck (Left) 0.611 -2.1 0.3 Osteopenia Total Hip (Left) 0.745 -1.6 0.7 Osteopenia World Health Organization criteria for BMD impression classify patients as: Normal (T-score at or above -1.0), Osteopenia (T-score between -1.0 and -2.5), or Osteoporosis (T-score at or below -2.5). 10-year Fracture Risk(1): Major Osteoporotic Fracture 31% Hip Fracture 13% Reported Risk Factors: [place] (), Neck BMD=0.611, BMI=24.4, glucocorticoids, rheumatoid arthritis (1) FRAX(R) Version 3.08. Fracture probability calculated for an untreated patient. Fracture probability may be lower if the patient has received treatment. Clinical Information Provided by Patient: Has taken Glucocorticoids Has rheumatoid arthritis Has used the following medications: Vitamin D, Calcium Has the following medical conditions: Inflammatory bowel diseases, Hysterectomy Patient maximum height was 64.5 Menopause Age: 39 No regular weight bearing exercise Onset of menses at age 13 Number of children 2 Impression: The patient has low bone mass, based on the Left Femoral Neck T-score. The patient has an estimated ten-year risk of hip fracture of 13% and an estimated ten-year risk of major fracture of 31%, based on the WHO FRAX algorithm. The patient has risk factors, including: history of glucocorticoid therapy. Discussion: BONE DENSITY IS LOW AT ONE OR MORE SKELETAL SITES. THE PATIENT'S BMD AND CLINICAL RISK FACTORS CONTRIBUTE TO THIS PATIENT'S HIGH RISK OF FRACTURE. This patient's lowest T-score is low at one or more skeletal sites. It meets the World Health Organization's (WHO) criteria for ?low bone mass? (T-score between -1.0 and -2.5). The patient's 10-year risk of hip fracture and 10 year risk of a major osteoporotic fracture as calculated by FRAX exceeds the threshold where pharmacological therapy is recommended by the National Osteoporosis Foundation (NOF). However, all treatment decisions require clinical judgment and consideration of individual patient factors, including patient preferences, comorbidities, previous drug use, risk factors not captured in the FRAX model (e.g., frailty, falls, vitamin D deficiency, increased bone turnover, interval significant decline in bone density) and possible under or overestimation of fracture risk by FRAX. The patient should
== END 2024-01-15 10:07 | disposition home or self-care (01) ==
LOC: ANHIMG 10:14
PROVIDERS: PCP Internal Medicine; Visit Provider Internal Medicine
DX: M85.89 Other specified disorders of bone density and structure, multiple sites (principal); Z78.0 Asymptomatic menopausal state; Z13.820 Encounter for screening for osteoporosis
CPT/HCPCS: 77080

== ENCOUNTER 2024-05-20 11:31 | Outpatient (CLI) | payer MEDICARE, SELFPAY ==
[2024-05-20 12:00] LABS: Basophils Percent Auto 0.3 % (0.2-1.2); Eosinophils Percent Auto 0.3 % (0-4.4); Hematocrit 34.9 % (37.0-47.0); Hemoglobin 11.9 g/dL (12.0-15.0); Immature Granulocyte Absolute 0.02 K/mm3 (0.00-0.031); Immature Granulocyte Percent A 0.3 % (0-0.5); Lymphocytes Absolute Auto 1.24 K/mm3 (0.9-3.2); Lymphocytes Percent Auto 17.3 % (18.3-44.2); Mean Corpuscular HGB Conc 34.1 g/dl (32-36); Mean Corpuscular Hemoglobin 30.8 pg (26-34); Mean Corpuscular Volume 90.4 fl (80-100); Mean Platelet Volume 8.9 fl (7.4-10.4); Monocytes Absolute Auto 0.7 K/mm3 (0.1-0.6); Monocytes Percent Auto 9.8 % (2.6-8.5); Neutrophils Absolute Auto 5.2 K/mm3 (1.3-6.7); Platelet Count Result 195 k/mm3 (150-375); Red Blood Count 3.86 M/mm3 (4.2-5.4); Red Cell Distribution Width 13.7 % (11.5-14.5); White Blood Count 7.2 K/mm3 (4.5-10.0)
[2024-05-20 12:11] LABS: Alanine Aminotransferase 21 U/L (6-35); Albumin Level 4.2 g/dL (3.5-5.1); Alkaline Phosphatase 49 U/L (38-126); Anion Gap 7 mmol/L (4-12); Aspartate Amino Transferase 26 U/L (14-36); Bilirubin,Total 0.5 mg/dL (0.2-1.3); Blood Urea Nitrogen 30 mg/dL (7-17); Calcium 9.9 mg/dL (8.4-10.2); Carbon Dioxide 27 mmol/L (22-30); Chloride 101 mmol/L (98-107); Cholesterol 190 mg/dL (0-200); Estimated Glomerular Filt Rate > 60; Glucose 95 mg/dL (65-110); HDL Direct 80 mg/dL; Magnesium 1.9 mg/dL (1.6-2.3); Potassium 3.6 mmol/L (3.4-5.0); Sodium 135 mmol/L (137-145); Triglycerides 190 mg/dL (<150)
[2024-05-20 12:21] LABS: LDL Cholesterol Direct 74 mg/dL
[2024-05-20 12:35] LABS: Free T4 Free Thyroxine 1.58 ng/mL (0.78-2.19); Vitamin D 25 Hydroxy 67.4 ng/mL
[2024-05-20 12:40] LABS: Thyroid Stimulating Hormone 0.272 uIU/mL (0.465-4.680)
[2024-05-21 09:54] LABS: Triiodothyronine T3 Free 2.4 pg/mL (2.3-4.2)
== END 2024-05-20 11:32 | disposition home or self-care (01) ==
PROVIDERS: PCP Internal Medicine; Visit Provider Internal Medicine
DX: E78.5 Hyperlipidemia, unspecified (principal); E03.9 Hypothyroidism, unspecified; Z79.891 Long term (current) use of opiate analgesic
CPT/HCPCS: 36415; 80053; 80061; 82306; 83735; 84439; 84443; 84481; 85025

== ENCOUNTER 2024-06-05 10:34 | Outpatient (CLI) | payer MEDICARE, SELFPAY | END 2024-06-05 10:35 | disposition home or self-care (01) | LOC: ANHLAB 10:35 | PROVIDERS: PCP Internal Medicine; Visit Provider Nurse Practitioner Family | DX: K51.019 Ulcerative (chronic) pancolitis with unspecified complications (principal) | CPT/HCPCS: 83993 ==

== ENCOUNTER 2025-01-13 11:11 | Outpatient (CLI) | payer MEDICARE, SELFPAY ==
--- NOTE | ~2025-01-13 | XR_ITS ---
Left wrist Technique: PA, oblique, lateral, and ulnar deviation views were obtained. Clinical History: Pain Findings: No acute fracture or dislocation is seen. There is generalized osteopenia. There is mild to moderate degenerative change of the radial scaphoid articulation. Soft tissues are unremarkable. Impression: [id number] degenerative changes of the radial scaphoid articulation. General is osteopenia. Reviewed, dictated and finalized at location . Impression: [id number] degenerative changes of the radial scaphoid articulation. General is osteopenia.
--- NOTE | ~2025-01-13 | XR_ITS ---
Clinical Indication: Chest pain PA and lateral views of the chest: Comparison: 02/23/2010 Findings: The lungs are clear, without evidence of focal consolidation or pleural effusion. Cardiome diastinal silhouette is prominent. Bones and soft tissues are unremarkable. Impression: Clear lungs. Mild cardiomegaly. Reviewed, dictated and finalized at location . Impression: Clear lungs. Mild cardiomegaly.
--- OUTSIDE RECORDS SUMMARY | 2025-01-13 11:49 | XMS_ITS | CONTINUITY OF CARE DOCUMENT ---
Author Name anna castillo Address Unknown Organization [facility] Address [id number] [place] [address] [address] [place] [address] Phone [phone] Care Team Providers Care Acls Specialist Name Role Phone Raghu VIVAS, Jc Holt Unavailable [phone] Jc Krishnamurthy MD Unavailable [phone] KARLIE BOUDREAUX MD Unavailable [phone] INSURANCE PROVIDERS Payer name Policy type / Coverage type [place] red democrat ID AARP MEDICARE ADVANTAGE ([facility] COMPLETE PPO) Other [id number]
--- OUTSIDE RECORDS SUMMARY | 2025-01-13 11:49 | XMS_ITS | Continuity of Care Document ---
Author Organization [facility] Address [address] [place] [address] [address] [place] [address] Phone Care Team Providers Care Diving Judge Name Role Phone Rico Rawls Unavailable Unavailable Advance Directives Directive Yes / No Effective Date File Name No Information Encounters Encounter Description Practice Location Reason(s) For Visit Diagnoses Date Provider Providers Copied on Encounter [facility], [id number] [place] [address] [address], [place], [place], [id number], [place] tel:[phone] SEC [facility] No Information Dec-2 0-200 1 Tremainesy Edward. [address] [facility] , [address], [place], [address], [place]. tel:[phone] Family History Family Member Type Diagnosis Age At Onset No Information Payers Payer name Insurance type Covered constitution party ID Authoriza tion(s) No Information Social History Type Description Quantity Date Captured Comments Sex Female Smoking Status No Information Chief Complaint And Reason For Visit No Information Reason For Referral Reason For Referral No Information History Of Present Illness Encounter Date Complaint History Of Prese nt Illness No Information Functional Status Date Functional Assessmen t No Information Instructions Date Instruction Additional Infor mation No Information Assessments Type Assessment Date No Information Patient Care Teams Name Effective Dates (start - stop) Status Members No Information
--- OUTSIDE RECORDS SUMMARY | 2025-01-13 11:49 | XMS_ITS | Data Portability ---
Author Organization [facility] [place] [facility] Address [address] [place] [address] Care Team Providers Care Legal Technician Name Role Phone KARLIE CORNELL Primary Care Provider EDWIN Baker OTHER Assessment Encounter Date Assessment Date Assessment LastModified by Organization Details LastModified Time 02/01/2024 02/01/2024 all questions answered all assessments discussed immunizations screenings ordered were appropriate patient agreeable continue follow up Not available 03/11/2024 20:35:06 05/20/2024 05/20/2024 she says she will get her flu COVID and RSV shots at the pharmacy blood work will be ordered diagnosis in the management of those diagnosis have been discussed all questions have been answered follow up with me in 4 months [email or web address] Not available 05/25/2024 16:04:54 09/23/2024 09/23/2024 healthy lifestyle care instructions we will continue current therapy diagnosis and assessment and plan have been discussed all questions answered follow up in 4 months [email or web address] Not available 09/23/2024 13:37:05 10/10/2024 10/10/2024 doxycycline 100 b.i.d. for 10 days she can continue to use the albuterol inhaler as needed she will push fluids and she will call if not improved [email or web address] Not available 11/10/2024 18:06:11 Plan of Treatment Reminders Order Date Submit Date Provider Last Modified By Organization Details Last Modified Time Details Appointments ANY 15 2024 10:00A M Karlie Cornell MD Not available Not available Not available ANY 15 2024 10:30A Mundo Cornell MD Not available Not available Not available Lab CBC w/ auto diff 2023 [facility] (Lab), [address] [place] [address], [place], [address], 05/23/2024 12:23:27 vitamin D, 25-hydrox y, total, serum 2023 [facility] (Lab), [address] [place] [address], [place], [address], 05/23/2024 12:23:19 T3, free, serum or plasma 2023 [facility] (Lab), [address] [place] [address], [place], [address], 05/23/2024 12:22:22 TSH, serum or plasma 2023 [facility] (Lab), [address] [place] [address], [place], [address], 05/23/2024 12:23:02 T4, free, serum 2023 [facility] (Lab), [address] [place] [address], [place], [address], 05/23/2024 12:23:10 lipid panel, serum 2023 [facility] (Lab), [address] [place] [address], [address], 05/23/2024 12:22:44 CMP, serum or plasma 2023 [facility] (Lab), [address] [place] [address], [address], 05/23/2024 12:24:07 magnesium , serum or plasma 2023 [facility] (Lab), [address] [place] [address], [place], [address], 05/23/2024 12:23:45 Referral None recorded. Procedures None recorded. Surgeries None recorded. Imaging None recorded. Medication Orders doxycycli ne hyclate 100 mg capsule 2024 025 [facility] [address] [place], [address], 01/13/2025 10:57:25 Patient TargetsNo targets recorded. Patient Instructions Encounter Date Encounter Id Patient Instructions Last Modified By Organization Details Last Modified Time 02/01/2024 [id number] preventing falls : care instructions [email or web address] Not available 02/01/2024 13:59:06 Medicare [place] Preventive Checklist [email or web address] Not available 02/01/2024 13:59:06 09/23/2024 [id number] A healthy lifestyle: care instructions [email or web address] Not available 09/23/2024 13:16:44 Reason for Referral None Reported. Results Created Date Observation Date Name Description Value Unit Range Abnormal Flag Note LastModifiedBy Organization Detail LastModifiedTime 01/17/20 24 01/15/2024 bone densi ty No observ ation record ed. [address], [place], [address], 01/22/2024 10:56:54 01/17/20 24 01/15/2024 bone densi ty No observ ation record ed. [address], [place], [address], 01/22/2024 10:56:55 Result Notes None recorded. Problems Name Problem SNOMED Code Status Onset Date Resolution Date Notes Provider Name and Address Organization Details Recorded Time Inflammator y bowel disease 84460091 Active 2023 Karlie Cornell MD Attn: Dewey [address] [place], [address], [place] [facility] 4 15:38:41 Gastroesoph ageal reflux disease without esophagitis 686288460 Active 2023 Karlie Cornell MD Attn: [address] [place], [address], [place] [facility] 4 15:38:42 Hyperlipide franki 02491072 Active 2023 Karlie Cornell MD Attn: Dewey clement,[address] [facility], [place], [address], [place] [facility] 4 15:38:49 Hypothyroid ism 75823899 Active 2023 Frank Mata [place] null, [place] [facility] 5 11:45:59 [place] 83334601 Active 2023 Karlie Cornell MD Attn: Dewey g,[address] [facility], [place], [address], [place] [facility] 4 15:38:54 Rheumatoid arthritis 03457174 Active 2023 Karlie Cornell MD Attn: Dewey clement,[address] [facility], [place], [address], [place] [facility] 4 16:04:08 Chest pain 75511594 Active 2024 Frank Mata [place] [facility] 5 11:45:58 Pain of left wrist 1718763416655 02 Active 2024 Frank M[place] [facility] 5 11:47:52 Problem Notes None recorded. Procedures Surgical History Date Name Laterality Status Provider Name and Address Organization Details Recorded Time Appendectomy completed [place]ISHOR [place] [facility] 10/30/2023 15:06:00 Eye Surgery completed Gilda Rose [place] [facility] 10/30/2023 15:06:06 Joint Replacement completed Demario Rose [place] [facility] 10/30/2023 15:06:12 Tubal Ligation [place]ISHOR [place] [facility] 10/30/2023 15:06:23 Total hysterectomy completed Gilda Rose [place] [facility] 10/30/2023 15:06:30 Imaging Results None recorded. Procedure Notes None recorded. Medical Equipment None Reported. Allergies No known drug allergies Medications Name Sig Start Date Stop Date Status Note LastModified by Organization Details LastModified Time nifedipine ER 30 mg tablet,exte nded release 24 hr TAKE 1 TABLET BY MOUTH ONCE DAILY active Not Available Not Available No t Available celecoxib 200 mg capsule TAKE 1 CAPSULE BY MOUTH TWICE DAILY 01/21 completed Not Available Not Available Not Available amoxicillin 500 mg capsule TAKE FOUR CAPSULES BY MOUTH ONE HOUR BEFORE APPOINTME NT active Not Available Not Available No t Available doxycycline hyclate 100 mg capsule TAKE 1 CAPSULE BY MOUTH TWICE DAILY FOR 10 DAYS 01/13 completed Not Available Not Available Not Available Pentasa 250 mg capsule,con trolled release 01/13 completed Not Available Not Available Not Available atorvastati n 10 mg tablet TAKE 1 TABLET BY MOUTH ONCE DAILY 2024 active Not Available Not Available Not Avai lable cephalexin 250 mg capsule TAKE 1 CAPSULE BY MOUTH AT BEDTIME active Not Available Not Available No t Available potassium chloride ER 10 mEq tablet,exte nded release TAKE 1 TABLET BY MOUTH ONCE DAILY 01/21 completed Not Available Not Available Not Available metronidazo le 500 mg tablet TAKE 1 TABLET BY MOUTH EVERY 8 HOURS FOR 5 DAYS 01/21 completed Not Available Not Available Not Available ciprofloxac in 250 mg tablet TAKE 1 TABLET BY MOUTH TWICE DAILY FOR 7 DAYS 10/29 completed Not Available Not Available Not Available ciprofloxac in 500 mg tablet TAKE 1 TABLET BY MOUTH TWICE DAILY 10/29 completed Not Available Not Available Not Available omeprazole 40 mg capsule,del ayed release Take 1 capsule every day by oral route. active Not Available Not Available No t Available tramadol 50 mg tablet TAKE 1 TABLET BY MOUTH 4 TIMES DAILY NEEDED WITH TYLENOL active Not Available Not Available No t Available levothyroxi ne 75 mcg tablet TAKE 1 TABLET BY MOUTH DAILY 2024 active Not Available Not Available Not Avai lable terbinafine HCl 250 mg tablet TAKE 1 TABLET BY MOUTH ONCE DAILY active Not Available Not Available No t Available benzonatate 100 mg capsule TAKE 1 CAPSULE BY MOUTH 2 TO 3 TIMES PER DAY FOR COUGH 01/13 completed Not Available Not Available Not Available prednisone 2.5 mg tablet TAKE 3 TABLETS BY MOUTH ONCE DAILY active Not Available Not Available No t Available gabapentin 300 mg capsule TAKE 1 TO 3 CAPSULES BY MOUTH ONCE DAILY AT BEDTIME FOR BETTER SLEEP. active Not Available Not Available No t Available budesonide DR - ER 3 mg capsule,del ayed,extend ed release TAKE 3 CAPSULES BY MOUTH ONCE DAILY 01/13 completed Not Available Not Available Not Available zolpidem 10 mg tablet TAKE 1 TABLET BY MOUTH ONCE DAILY AT BEDTIME active Not Available Not Available No t Available methylpredn isolone 4 mg tablets in a dose pack TAKE BY MOUTH FOR 6 DAYS DIRECTED ON PACKAGE 01/13 completed Not Available Not Available Not Available albuterol sulfate HFA 90 mcg/actuati on aerosol inhaler INHALE 1 PUFF BY MOUTH EVERY 4 HOURS active Not Available Not Available No t Available ondansetron 4 mg disintegrat ing tablet DISSOLVE 1 TABLET IN MOUTH EVERY 8 HOURS NEEDED FOR NAUSEA AND VOMITING 01/21 completed Not Available Not Available Not Available dicyclomine 10 mg capsule TAKE 1 CAPSULE BY MOUTH THREE TIMES DAILY NEEDED FOR CRAMPS active Not Available Not Available No t Available oxycodone 5 mg tablet TAKE 1 TABLET BY MOUTH EVERY 4 HOURS NEEDED 01/21 completed Not Available Not Available Not Available nitrofurant oin monohydrate /macrocryst als 100 mg capsule TAKE 1 CAPSULE BY MOUTH EVERY 12 HOURS FOR 10 DAYS 01/21 completed Not Available Not Available Not Available Pentasa 500 mg capsule,con trolled release TAKE 2 CAPSULES BY MOUTH ONCE DAILY active Not Available Not Available No t Available Xeljanz 5 mg tablet Take 1 tablet twice a day by oral route. 01/13 completed Not Available Not Available Not Available Vitals Date Recorded Body height Body mass index (BMI) Body weight Heart rate Oxygen saturation Oxygen saturation in Arterial blood by Pulse oximetry Systolic blood pressure Diastolic blood pressure Provider Name and Address Organization Details Last Updated DateTime 5 160.66 cm 28.1 kg/m2 88671.7 g 62 /min 97 % 97 % 132 mm[Hg] 68 mm[Hg] Rose Henriquez [place] - [facility] 5 11:05:13 Date Recorded Body height Body mass index (BMI) Body weight Heart rate Oxygen saturation Oxygen saturation in Arterial blood by Pulse oximetry Systolic blood pressure Diastolic blood pressure Provider Name and Address Organization Details Last Updated DateTime 5 160.66 cm 24 kg/m2 81979.7 2 g 68 /min 99 % 99 % 126 mm[Hg] 70 mm[Hg] Don Mast MA [facility] 5 12:43:14 Date Recorded Body height Body mass index (BMI) Body weight Heart rate Oxygen saturation Oxygen saturation in Arterial blood by Pulse oximetry Systolic blood pressure Diastolic blood pressure Provider Name and Address Organization Details Last Updated DateTime 5 160.66 cm 23.8 kg/m2 91582.6 9 g 77 /min 98 % 98 % 130 mm[Hg] 80 mm[Hg] Liliya LEONARDO Lofton [facility] 5 10:53:25 Date Recorded Body mass index (BMI) Body weight Provider Name and Address Organization Details Last Updated DateTime 02/01/2024 24.1 kg/m2 66713.15 g Malgorzata Noel [facility] 01/31 11:50:00 Date Recorded Body height Oxygen saturation Oxygen saturation in Arterial blood by Pulse oximetry Heart rate Systolic blood pressure Diastolic blood pressure Provider Name and Address Organization Details Last Updated DateTime 4 160.66 cm 99 % 99 % 84 /min 130 mm[Hg] 72 mm[Hg] Paz Ordoñez MA [facility] 4 11:49:06 Date Recorded Body height Body mass index (BMI) Body weight Heart rate Oxygen saturation Oxygen saturation in Arterial blood by Pulse oximetry Systolic blood pressure Diastolic blood pressure Provider Name and Address Organization Details Last Updated DateTime 4 160.66 cm 24.7 kg/m2 54971.3 7 g 68 /min 95 % 95 % 128 mm[Hg] 64 mm[Hg] Rose Henriquez MA [facility] 4 11:15:29 Social History Question Answer Notes LastModified by Organizat ion Details LastModified Time Tobacco Smoking Status Never Smoker KISHOR Marino, [facility] 10/30/2023 15:05:49 Do You Have An Advance Directive? Yes Information not available 02/01/2024 Are You Blind Or Do You Have Difficulty Seeing? No Information not available 02/01/2024 What Is Your Level Of Caffeine Consumption? None Information not available 02/01/2024 In The 14 Days Before Symptom Onset, Have You Had Close Contact With A Laboratory-confir med COVID-19 While That Case Was Ill? No Information not available 05/20/2024 In The 14 Days Before Symptom Onset, Have You Had Close Contact With A Person Who Is Under Investigation For COVID-19 While That Person Was Ill? No Information not available 05/20/2024 Have You Been To An Area Known To Be High Risk For COVID-19? No Information not available 05/20/2024 Are You Deaf Or Do You Have Serious Difficulty Hearing? Yes Hearing Aids Information not available 02/01/2024 What Type Of Diet Are You Following? REGULAR Information not available 02/01/2024 Are There Any Guns Present In Your Home? Yes Gun Safe In Basement Information not available 02/01/2024 In The Past 7 Days, How Many Days Did You Exercise? 0 Information not available 02/01/2024 In The Past 7 Days, How Much Pain Have You [place]? Some Information not available 02/01/2024 In General, Would You Say You Health Is: Good Information not available 02/01/2024 How Would You Describe The Condition Of Your Mouth And Teeth- Including False Teeth Or Dentures? Good Information not available 02/01/2024 Each Night, How Many Hours Of Sleep Do You Get? 7 Information no t available 02/01/2024 Has Anyone Ever Told You That You Snore? Yes Information not available 02/01/2024 In The Past 7 Days, How Often Have You [place] Sleepy In The Daytime? Sometimes Information not available 02/01/2024 # Alcohol Drinks Per Week 0 Information not available 02/01/2024 What Was The Date Of Your Most Recent Tobacco Screening? 01/13/2025 Non Smoker [email or web address] Information not available 01/13/2025 What Is Your Relationship Status? Information not available 02/01/2024 Do You Use Your Seat Belt Or Car Seat Routinely? Yes Information not available 02/01/2024 Do You Have Smoke And Carbon Monoxide Detectors In Your Home? Yes Information not available 02/01/2024 Do You Use Sunscreen Routinely? Yes Information not available 02/01/2024 Has Tobacco Cessation Counseling Been Provided? No Information not available 02/01/2024 Sex: Female Functional Status Question Answer Note LastModified by Organizat ion Details LastModified Time Do you use any illicit or recreational drugs? No Information not available 02/01/2024 Do you or have you ever used any other forms of tobacco or nicotine? No Information not available 02/01/2024 What is your level of alcohol consumption? Occasional Information not available 02/01/2024 Are you currently employed? No Information not available 02/01/2024 Are you able to care for yourself? Yes Information not available 02/01/2024 What is your exercise level? Occasional [email or web address] Information not available 02/01/2024 Mental Status Question Answer Note LastModified by Organization D etails LastModified Time Do you feel stressed (tense, restless, nervous, or anxious, or unable to sleep at night)? [id number] Information not available 02/01/2024 Family History Relationship Description Onset Age of this Age Resolved Age Notes LastModified by Organization Details LastModified Time Mother Asthma [email or web address] Not availabl e 10/30/2023 15:05:05 Mother Osteoporosis [email or web address] Not av ailable 10/30/2023 15:05:36 Brother Dementia [email or web address] Not avail able 10/30/2023 15:05:15 Father Hypertensive disorder [email or web address] Not available 10/12 15:05:27 Medical History Condition Response Muscle, Joint, or Bone Problems Y High Blood Pressure Y High Cholesterol Y Acid Reflux (GERD) Y Thyroid Problems Y Kidney or Bladder Problems Y GI Problems Y Osteoporosis Y Gynecological History Statement/Question Response If Post Menopausal, Age at Menopause 39 Obstetrics History GPAL:G 0 P 0 0 0 0 Immunizations Vaccine Type Date Status Note Provider Nam e and Address Organization Details Recorded Time Influenza, recombinant, quadrivalent, PF 0 completed Malgorzata [place], [place] [facility] 01/30/2024 11:17:06 zoster recombinant 0 completed [place] [facility] 01/30/2024 11:17:06 zoster recombinant 9 completed Malgorzata [place] [facility] 01/30/2024 11:17:06 Influenza, high-dose, quadrivalent, PF 3 completed [place]gorzata [place] [facility] 01/30/2024 11:17:06 Influenza, high-dose, quadrivalent, PF 2 completed [place]gorz[place] [facility] 01/30/2024 11:17:06 Influenza, high-dose, quadrivalent, PF 1 completed [place]gor[place] [facility] 01/30/2024 11:17:06 COVID-19, mRNA, LNP-S, PF, 100 mcg/0.5mL dose or 50 mcg/0.25mL dose 1 completed [place]gorz[place] [facility] 01/30/2024 11:17:06 COVID-19, mRNA, LNP-S, PF, 100 mcg/0.5mL dose or 50 mcg/0.25mL dose 1 completed [place]gorzata [place] [facility] 01/30/2024 11:17:06 COVID-19, mRNA, LNP-S, PF, 100 mcg/0.5mL dose or 50 mcg/0.25mL dose 1 completed [place]gorzata [place] [facility] 01/30/2024 11:17:06 COVID-19, mRNA, LNP-S, PF, 100 mcg/0.5mL dose or 50 mcg/0.25mL dose 1 completed [place]gor[place] [facility] 01/30/2024 11:17:06 COVID-19, mRNA, LNP-S, PF, 100 mcg/0.5mL dose or 50 mcg/0.25mL dose 1 completed [place] [facility] 01/30/2024 11:17:06 COVID-19, mRNA, LNP-S, bivalent, PF, 50 mcg/0.5 mL or 25mcg/0.25 mL dose 2 completed [place] [facility] 01/30/2024 11:17:06 COVID-19, mRNA, LNP-S, PF, 50 mcg/0.5 mL 3 completed [place] [facility] 01/30/2024 11:17:06 pneumococcal polysaccharide PPV23 9 completed [place] [facility] 01/30/2024 11:17:06 Pneumococcal conjugate PCV 13 7 completed [place] [facility] 01/30/2024 11:17:06 Influenza, high-dose, trivalent, PF 4 completed [place] [facility] 01/30/2024 11:17:06 Influenza, high-dose, trivalent, PF 8 completed [place] [facility] 01/30/2024 11:17:06 Influenza, high-dose, trivalent, PF 7 completed [place] [facility] 01/30/2024 11:17:06 Influenza, high-dose, trivalent, PF 3 completed [place] [facility] 01/30/2024 11:17:06 Influenza, high-dose, trivalent, PF 5 completed [place] [facility] 01/30/2024 11:17:06 Influenza, split virus, quadrivalent, PF 9 completed [place] [facility] 01/30/2024 11:17:06 COVID-19, mRNA, LNP-S, PF, 50 mcg/0.5 mL 4 completed Don M[place] [facility] 10/10/2024 12:41:16 Influenza, high-dose, trivalent, PF 4 completed [place] Mast [place] [facility] 10/10/2024 12:41:16 Past Encounters Encounter ID Performer Location Encounter Start Date Encounter Closed Date Diagnosis/Indication Diagnosis SNOMED-CT Code Diagnosis ICD10 Code Diagnosis Note [id number] [facility] [address] [place] [address] 10/30/2023 14:37:15 10/30/2023 15:51:57 Postmenopausal state 32539566 Z78.0 Hypothyroidism 77028676 E03.9 Hyperlipidemia 58645164 E78.5 Insomnia 497188637 G47.0 0 Gastroesop hageal reflux disease without esophagitis 767691160 K21.9 Inflammato ry bowel disease 30925358 K52.9 Ankylosing spondylitis 7461026 M45.9 [id number] Karlie Cornell MD [facility] [address] [place] [address] 01/22/2024 10:48:29 01/22/2024 11:30:35 Gastroesophageal reflux disease without esophagitis 584584839 K21.9 Hyperlipidemia 22107318 E78.5 Hypothyroidism 46344914 E03.9 Inflammato ry bowel disease 13857132 K52.9 [id number] Karlie Cornell MD [facility] [place] [address] [place] [address] 02/01/2024 11:28:20 02/01/2024 12:13:48 Adult health examination 525560615 Z00.00 Health Risk Assessment collected and reviewed [id number] Karlie Cornell MD [facility] [place] [address] [place] [address] 05/20/2024 10:52:06 05/20/2024 12:01:29 Hyperlipidemia 38591704 E78.5 Hypothyroidism 85100935 E03.9 Long-term drug therapy 783006858 Z79.891 Gastroesop hageal reflux disease without esophagitis 282965856 K21.9 Inflammato ry bowel disease 09697058 K52.9 Rheumatoid arthritis 698 71041 M06.9 [id number] Karlie Cornell MD [facility] [place] [address] [place] [address] 09/23/2024 10:41:56 09/23/2024 11:41:57 Body mass index 25-29 - overweight 906293927 Z68.28 Overweight 851615586 E66 .3 Gastroesop hageal reflux disease without esophagitis 264758405 K21.9 Hyperlipidemia 95271805 E78.5 Hypothyroidism 75030849 E03.9 Inflammato ry bowel disease 00623139 K52.9 Rheumatoid arthritis 698 44390 M06.9 [id number] Karlie Cornell MD [facility] [place] [address] [place] [address] 10/10/2024 12:18:02 10/10/2024 13:14:52 Body mass index 20-24 - normal 575381455 Z68.24 Bronchitis 63313006 J40 [id number] Karlie Cornell MD [facility] [place] [address] [place] [address] 01/13/2025 10:36:43 01/13/2025 11:44:06 Body mass index 20-24 - normal 011393941 Z68.23 Overweight 185632404 E66 .3 Chest pain 98275376 R07. 9 Hypothyroidism 92512554 E03.9 Gastroesop hageal reflux disease without esophagitis 920297685 K21.9 Hyperlipidemia 19647661 E78.5 Pain of left wrist 83810 17999 50505 M25.532 Health Concerns Section Related Observation LastModified by Organization Detai ls LastModified Time None Recorded Concern Status LastModified by Organization Details LastModified Time None Recorded Advance Directives Directive Y: Payers Encounter Date Sequence Insurance Name Policy Number Policy Morgan Covered Member ID Morgan Member ID Guarantor Name 02/01/2024 1 [facility] (MEDICARE REPLACEMENT/A DVANTAGE - HMO) [id number] Marnie Bonds [id number] Marnie Bonds 05/20/2024 1 [facility] (MEDICARE REPLACEMENT/A DVANTAGE - HMO) [id number] Marnie Bonds [id number] Marnie Bonds 09/23/2024 1 [facility] (MEDICARE REPLACEMENT/A DVANTAGE - HMO) [id number] Marnie Bonds [id number] Marnie Bonds 10/10/2024 1 [facility] (MEDICARE REPLACEMENT/A DVANTAGE - HMO) [id number] Marnie Bonds [id number] Marnie Bonds Notes Date Note Type Note Provider Name and Address Organization Details Recorded Time 02/01/2024 text/html JULIUS 2Reported bypatient.Diet and Nutrition:healthy diet Fracture Risk:no sudden unexplained fractures;history of fractures Concentration and Memory:no decreased concentrating ability; no memory lapses or loss; does not forget words Speech/Motor difficulties:no speech difficulties; no difficulty expressing formulated concepts; no difficulty with fine manipulative tasks; no difficulty writing/copying; no slowed reaction time; does not knock things over when trying to pick them up Hearing:wears hearing aids Vision:no vision problems Activities of Daily Living:able to bathe with limited or no assistance; able to contol urination and bowels; able to dress with limited or no assistance; able to feed self with limited or no assistance; able to get out of chair or bed with limited or no assistance; able to groom with limited or no assistance; able to toilet with limited or no assistance Instrumental Activities of Daily Living:able to do house work with limited or no assistance; able to grocery shop with limited or no assistance; able to manage medications with limited or no assistance; able to manage money with limited or no assistance; able to prepare meals with limited or no assistance; able to use the phone with limited or no assistance Falls Risk Assessment:no frequent falls while walking; no fall in the past year; no fall since last visit; no dizziness/vertigo Home Safety:no unsafe marcellus hazzards; no unsafe stairs; working smoke/CO detectors; practicing 'safer sex'; has hand bars in the bathroom/shower; good lighting in the home;fire arms Karlie Cornell MD Attn: [address] [place], [address], [facility] 03/11/2024 20:35:18 05/20/2024 text/html GERD no nausea vomiting or heartburn. Inflammatory bowel disease she is not having any bleeding but she always has twinges of pain. Hypothyroid no heat or cold intolerance dyslipidemia she is trying to follow a low-fat diet. Karlie Cornell MD Attn: Accounting,[address] [place], [address], [facility] 05/25/2024 16:05:13 09/23/2024 text/html hyperlipidemia d oes try to follow a diet no side effects from medications. Hypothyroid no heat or cold intolerance at this time. Inflammatory bowel disease appears to be stable her rheumatoid arthritis is not having any flare-ups at this time GERD no nausea no vomiting Karlie Cornell MD Attn: Accounting, [address] [facility], [place], [address], [facility] - [facility] 09/23/2024 13:37:24 10/10/2024 text/html cough congestion went to an urgent care COVID and flu negative was not feeling any better and subsequently went back to an urgent care up here in [place] area her 1st 1 was in [place] given a steroid injection diagnosed with bronchitis and given a Medrol Dosepak and albuterol she continues with cough that is now yellow and she is not really wheezing short of breath but she is now having lots of yellow sputum Karlie Cornell MD Attn: Accounting[address] [facility], [place], [address], [place] [facility] 11/10/2024 18:06:28 OBGyn Episode No OBEpisode recorded.
--- OUTSIDE RECORDS SUMMARY | 2025-01-13 11:50 | XMS_ITS | Clinical Summary ---
Author Organization [email or web address] Address [address] [place] [address] Care Team Providers Care Poll Watcher Name Role Phone Dalton De Leon MD Unavailable [phone] Nazario Cornell MD Primary Care Provider [phone] Source Comments [email or web address],non-owned Affiliates and Associated Physician Practices is amultiple site organization consisting of ambulatory clinics and hospital sitesin [place], [place], [place] and [place]. This disclosure is being madepursuant to the Care Everywhere program and may not contain all information available regarding this patient. Last updated 18.[email or web address] Allergies No known active allergies Medications * Be aware that medications may not be up to date on this document. Alwaysverify current medications with the patient. atorvastatin (LIPITOR) 10 MG tablet Take 10 mg by mouth once daily 08/14/19 19 Active omeprazole (PRILOSEC) 40 MG capsule Take 1 (one) capsule by mouth daily before breakfast 09/01/19 19 Active zolpidem (AMBIEN) 10 MG tablet 0 11/30/19 19 Active diphenoxylate-atro pine (LOMOTIL) 2.5-0.025 MG tablet Take 1 tablet by mouth every 6 hours as needed 0 04/09/20 19 Active PENTASA 250 MG capsule TAKE 4 CAPSULES BY MOUTH 4 TIMES DAILY 0 05/28/20 19 Active dicyclomine (BENTYL) 10 MG capsule TAKE 1 CAPSULE BY MOUTH 4 TIMES DAILY 2 05/25/20 19 Active diclofenac sodium (VOLTAREN) 1 % gelIndications:His tory of total right knee replacement,Primar y osteoarthritis of left knee Apply 4 g to affected area 4 times daily Apply to affected knee 5 tube 3 10/18/19 20 Active predniSONE (DELTASONE) 20 MG tablet Take 20 mg by mouth as needed 06/18/20 20 Active NIFEdipine CR osmotic 24hr (PROCARDIA-XL) 30 MG tablet Take 30 mg by mouth once daily Active azaTHIOprine (IMURAN) 50 MG tablet azathioprine 50 mg tablet Active celecoxib (CELEBREX) 200 MG capsule TAKE 1 CAPSULE BY MOUTH TWICE DAILY 180 capsule 3 04/28/20 21 Active Additional Information Patient not taking.Reported on 02/02/2023 predniSONE (Deltasone) 2.5 MG tablet Take 3 (three) tablets by mouth once daily 07/18/20 22 Active traMADol (Ultram) 50 MG tablet Take 1 (one) tablet by mouth 3 times daily as needed For pain. 07/13/20 22 Active levothyroxine (Synthroid) 88 MCG tablet Take 1 (one) tablet by mouth once daily 07/07/20 22 Active amoxicillin (Amoxil) 500 MG capsule TAKE FOUR CAPSULES BY MOUTH ONE HOUR BEFORE APPOINTMENT 10/03/19 23 Active cephalexin (Keflex) 250 MG capsule 09/21/19 23 Active levothyroxine (Synthroid) 75 MCG tablet 10/22/19 23 Active celecoxib (CeleBREX) 200 MG capsule Take 1 (one) capsule by mouth 2 times daily 60 capsule 5 02/03/20 23 Active Active Problems Problem Noted Date Diagnosed Date Ankylosing spondylitis 07/07/2021 Rheumatoid arthritis 07/07/2021 Insomnia 10/06/2019 Presence of right artificial knee joint 03/08/20 19 Essential hypertension 02/05/2019 Gastroesophageal reflux disease 02/05/2019 Hearing loss 02/05/2019 Primary osteoarthritis of left knee 12/25/2018 Primary osteoarthritis of both knees 09/18/2018 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 Degeneration of lumbar or lumbosacral interverte bral disc 12/28/2011 Social History Tobacco Use Types Packs/Day Years Used Date Smoking Tobacco: Never Smokeless Tobacco: Never Alcohol Use Standard Drinks/Week Comments No 0 (1 standard drink = 0.6 oz pur e alcohol) wine on special occasions Comments Unknown Sex and Gender Information Value Date Recorded Sex Assigned at Not on file 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 Gender Identity Not on file Sexual Orientation Not on file Last Filed Vital Signs Vital Sign Reading Time Taken Comments Blood Pressure 121/63 11/14/2018 7:07 AM CDT Pulse 83 11/14/2018 7:07 AM CDT Temperature 36.4 C (97.5 F) 11/14/2018 7:07 AM CDT Respiratory Rate 14 11/14/2018 7:07 AM CDT Oxygen Saturation 98% 11/14/2018 7:07 AM CDT Inhaled Oxygen Concentration - - Weight 58.2 kg (128 lb 3.2 oz) 11/12/2018 10:38 AM CDT Height 162.6 cm (5' 4) 11/12/2018 10:38 AM CDT stated Body Mass Index 22.01 11/12/2018 10:38 AM CDT Plan of Treatment Health Maintenance Due Date Last Done Comments BONE DENSITY TESTING 1940 COVID-19 VACCINE (#1) 10/30/1944 DTAP/TDAP/TD VACCINES (1 - Tdap) 10/30/1958 PNEUMOCOCCAL VACCINE 50+ (1 of 2 - PCV) 10/30/1958 ZOSTER VACCINE (1 of 2) 10/30/1958 Respiratory Syncytial Virus (RSV) Vaccine Pt: or over 60 yrs (1 - 1-dose 75+ series) 10/30/2014 DEPRESSION SCREENING 08/14/2024 MEDICARE AWV CALENDAR YEAR 2024 INFLUENZA VACCINE (Season Ended) 2025 HEPATITIS B VACCINE Aged Out No longe r eligible based on patient's age to complete this topic HIB VACCINE Aged Out No longer eligi ble based on patient's age to complete this topic HPV VACCINE Aged Out No longer eligi ble based on patient's age to complete this topic MENINGOCOCCAL (Group B) VACC INE SHARED DECISION-MAKING Aged Out No longer eligibl e based on patient's age to complete this topic MENINGOCOCCAL GROUPS A/C/Y/W VACCINE Aged Out No longer eligible b ased on patient's age to complete this topic Medical Devices Implanted Type Area Svp Marketing Device Identifier Shelf Expiration Date Model / Serial / Lot Cmnt Bone Cblt 40gm Hvisc Strl Implanted:Qty: 1 on 11/12/2018 by uH Coy MD at [facility] [employer] 02/07/2020 600-15-00 0 / / [id number] Cmpnt Ptlr 28mm 1 Pg Wire Ascnt Arcm Kn Implanted:Qty: 1 on 11/12/2018 by Hu Coy MD at [facility] [employer]nee [employer] 11/07/2023 [id number] / / [id number] Tray Tib 63mm Kn Cocr I Beam Implanted:Qty: 1 on 11/12/2018 by Hu Coy MD at [facility] [employer] 06/15/2028 [id number] / / [id number] Cmpnt Fem Kn Rt Cr Cmnt Prm Vngrd Intlk 60mm Implanted:Qty: 1 on 11/12/2018 by Hu Coy MD at [facility] [employer]nee [employer] 10/01/2028 [id number] / / [id number] As Tibial Bearing 10mm X 63mm Implanted:Qty: 1 on 11/12/2018 by Hu Coy MD at [facility] Knee [employer] 06/14/2022 [id number] / / [id number] Insurance [facility] [place] [id number] Advance Directives * Full Code (Latest Code Status on File) Date Activated Date Inactivated Comments 11/12/2018 4:31 PM 11/14/2018 12:55 PM Care Teams Poll Watcher Relationship Specialty Start Date End Date Nazario Cornell MD [address] [facility] [address] [place] [address] PCP - General Internal Medicine 07/27/20 Dalton De Leon MD [address] [employer] [address] [place] [address] Internal Medicine 12/16/11
[2025-01-13 12:49] LABS: Basophils Absolute Auto 0.1 K/mm3 (0.0-0.1); Basophils Percent Auto 0.8 % (0.2-1.2); Eosinophils Absolute Auto 0.1 K/mm3 (0-0.3); Eosinophils Percent Auto 0.8 % (0-4.4); Hemoglobin 11.5 g/dL (12.0-15.0); Immature Granulocyte Absolute 0.01 K/mm3 (0.00-0.031); Immature Granulocyte Percent A 0.2 % (0-0.5); Lymphocytes Absolute Auto 0.89 K/mm3 (0.9-3.2); Lymphocytes Percent Auto 13.8 % (18.3-44.2); Mean Corpuscular HGB Conc 31.9 g/dl (32-36); Mean Corpuscular Volume 90.9 fl (80-100); Mean Platelet Volume 9.5 fl (7.4-10.4); Monocytes Absolute Auto 0.6 K/mm3 (0.1-0.6); Monocytes Percent Auto 9.7 % (2.6-8.5); Neutrophils Absolute Auto 4.8 K/mm3 (1.3-6.7); Neutrophils Percent Auto 74.7 % (45.5-73.1); Platelet Count Result 201 k/mm3 (150-375); Red Blood Count 3.96 M/mm3 (4.2-5.4); Red Cell Distribution Width 13.2 % (11.5-14.5); White Blood Count 6.5 K/mm3 (4.5-10.0)
[2025-01-13 13:00] LABS: Alanine Aminotransferase 20 U/L (6-35); Albumin Level 4.2 g/dL (3.5-5.1); Alkaline Phosphatase 48 U/L (38-126); Anion Gap 6 mmol/L (4-12); Aspartate Amino Transferase 31 U/L (14-36); Bilirubin,Total 0.3 mg/dL (0.2-1.3); Blood Urea Nitrogen 28 mg/dL (7-17); Calcium 9.9 mg/dL (8.4-10.2); Carbon Dioxide 28 mmol/L (22-30); Chloride 102 mmol/L (98-107); Cholesterol 184 mg/dL (0-200); Estimated Glomerular Filt Rate 53; Glucose 108 mg/dL (65-110); HDL Direct 77 mg/dL; Potassium 3.7 mmol/L (3.4-5.0); Sodium 136 mmol/L (137-145); Triglycerides 145 mg/dL (<150)
[2025-01-13 13:11] LABS: LDL Cholesterol Direct 67 mg/dL
[2025-01-13 13:16] LABS: Free T4 Free Thyroxine 1.38 ng/dL (0.78-2.19)
[2025-01-13 13:32] LABS: Total Triiodothyronine (T3) 0.81 NG/ML (0.82-1.58)
== END 2025-01-13 11:12 | disposition home or self-care (01) ==
PROVIDERS: PCP Internal Medicine; Visit Provider Internal Medicine
DX: R07.9 Chest pain, unspecified (principal); E03.9 Hypothyroidism, unspecified; M19.032 Primary osteoarthritis, left wrist; M85.832 Other specified disorders of bone density and structure, left forearm; I51.7 Cardiomegaly
CPT/HCPCS: 36415; 71046; 73110; 80053; 80061; 84439; 84443; 84480; 85025

== ENCOUNTER 2025-01-27 12:46 | Outpatient (CLI) | payer MEDICARE, SELFPAY ==
--- OUTSIDE RECORDS SUMMARY | 2025-01-27 13:37 | XMS_ITS | Clinical Summary ---
Author Organization [facility] Address [address] [place] [address] Care Team Providers Care It Sales Consultant Name Role Phone Dalton De Leon MD Unavailable [phone] Nazario Cornell MD Primary Care Provider [phone] Source Comments [facility],non-owned Affiliates and Associated Physician Practices is amultiple site organization consisting of ambulatory clinics and hospital sitesin [place], [place], [place] and [place]. This disclosure is being madepursuant to the Care Everywhere program and may not contain all information available regarding this patient. 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 Gender Identity Not on file Sexual Orientation [...] this topic Medical Devices Implanted Type Area Executive Communications Manager Device Identifier Shelf Expiration Date Model / Serial / Lot Cmnt Bone Cblt 40gm Hvisc Strl Implanted:Qty: 1 on 11/12/2018 by Hu Coy MD at [facility] [employer] 02/07/2020 600-15-00 0 / / [id number] Cmpnt Ptlr 28mm 1 Pg Wire Ascnt Arcm Kn Implanted:Qty: 1 on 11/12/2018 by Hu Coy MD at [facility] [employer] 11/07/2023 [id number] / / [id number] Tray Tib 63mm Kn Cocr I Beam Implanted:Qty: 1 on 11/12/2018 by Hu Coy MD at [facility] [employer] 06/15/2028 [id number] / / [id number] Cmpnt Fem Kn Rt Cr Cmnt Prm Vngrd Intlk 60mm Implanted:Qty: 1 on 11/12/2018 by Hu Coy MD at [facility] [employer] 10/01/2028 [id number] / / [id number] As Tibial Bearing 10mm X 63mm Implanted:Qty: 1 on 11/12/2018 by Hu Coy MD at [facility] [employer] 06/14/2022 [id number] / / [id number] Insurance [address] MANAGED MEDICARE ADV [facility] MANAGED MEDICARE ADV Advance Directives * Full Code (Latest Code Status on File) Date Activated Date Inactivated Comments 11/12/2018 4:31 PM 11/14/2018 12:55 PM Care Teams It Sales Consultant Relationship Specialty Start Date End Date Nazario Cornell MD [address] [place] [facility] [address] [place] [address] PCP - General Internal Medicine 07/27/20 Dalton De Leon MD [address] [facility] [address] [place] [address] Internal Medicine 12/16/11
--- OUTSIDE RECORDS SUMMARY | 2025-01-27 13:37 | XMS_ITS | Data Portability ---
Author Organization [facility] [place] [facility] Address [address] [place] [address] Care Team Providers Care Technical Sales Associate Name Role Phone KARLIE CORNELL Primary Care Provider EDWIN Baker OTHER Assessment Encounter Date Assessment Date Assessment LastModified by Organization Details LastModified Time 02/01/2024 02/01/2024 all questions answered all assessments discussed immunizations screenings ordered were appropriate patient agreeable continue follow up [email or web address] Not available 03/11/2024 20:35:06 05/20/2024 05/20/2024 she says she will get her flu COVID and RSV shots at the pharmacy blood work will be ordered diagnosis in the management of those diagnosis have been discussed all questions have been answered follow up with me in 4 months [email or web address] Not available 05/25/2024 16:04:54 09/23/2024 09/23/2024 healthy lifestyle care instructions we will continue current therapy diagnosis and assessment and plan have been discussed all questions answered follow up in 4 months Not available 09/23/2024 13:37:05 10/10/2024 10/10/2024 doxycycline 100 b.i.d. for 10 days she can continue to use the albuterol inhaler as needed she will push fluids and she will call if not improved Not available 11/10/2024 18:06:11 Plan of Treatment Reminders Order Date Submit Date Provider Last Modified By Organization Details Last Modified Time Details Appointments ANY 15 2024 10:30A M Karlie Cornell MD Not available Not available Not available Lab CBC w/ auto diff 2023 024 [facility] (Lab), [address] [place] [address] [address], [place], [address], 05/23/2024 12:23:27 vitamin D, 25-hydrox y, total, serum 2023 [facility] (Lab), [address] [place] [address] [address], [place], [address], 05/23/2024 12:23:19 T3, free, serum or plasma 2023 [facility] (Lab), [address] [place] [address] [address], [place], [address], 05/23/2024 12:22:22 TSH, serum or plasma 2023 [facility] (Lab), [address] [place] [address], [place], [address], 05/23/2024 12:23:02 T4, free, serum 2023 [facility] (Lab), [address] [place] [address], [place], [address], 05/23/2024 12:23:10 lipid panel, serum 2023 [facility] (Lab), [address] [place] [address], [place], [address], 05/23/2024 12:22:44 CMP, serum or plasma 2023 [facility] (Lab), [address] [place] [address], [place], [address], 05/23/2024 12:24:07 magnesium , serum or plasma 2023 [facility] (Lab), [address] [place] [address], [place], [address], 05/23/2024 12:23:45 Referral None recorded. Procedures None recorded. Surgeries None recorded. Imaging None recorded. Medication Orders doxycycli ne hyclate 100 mg capsule 2024 025 [facility] [address] [place], [address], 01/13/2025 10:57:25 Patient TargetsNo targets recorded. Patient Instructions Encounter Date Encounter Id Patient Instructions Last Modified By Organization Details Last Modified Time 02/01/2024 [id number] preventing falls : care instructions [email or web address] Not available 02/01/2024 13:59:06 Medicare [place] Preventive Checklist Not available 02/01/2024 13:59:06 09/23/2024 [id number] A healthy lifestyle: care instructions [email or web address] Not available 09/23/2024 13:16:44 Reason for Referral None Reported. Results Created Date Observation Date Name Description Value Unit Range Abnormal Flag Note LastModifiedBy Organization Detail LastModifiedTime 01/17/20 24 01/15/2024 bone densi ty No observ ation record ed. [address], [address], 01/22/2024 10:56:54 01/17/20 24 01/15/2024 bone densi ty No observ ation record ed. [address], [address], 01/22/2024 10:56:55 01/14/20 25 01/13/2025 XR, chest No observ ation record ed. [address], [address], 01/17/2025 17:07:35 01/14/20 25 01/13/2025 XR, wrist No observ ation record ed. [address], [address], 01/17/2025 17:07:35 01/14/20 25 01/13/2025 XR, wrist No observ ation record ed. [address], [address], 01/17/2025 17:07:35 01/14/20 25 01/13/2025 XR, wrist No observ ation record ed. [place] [id number], [place], [address], 01/17/2025 17:07:36 01/14/20 25 01/13/2025 XR, chest No observ ation record ed. [email or web address] Not Available 2024 17:07:35 Result Notes None recorded. Problems Name Problem SNOMED Code Status Onset Date Resolution Date Notes Provider Name and Address Organization Details Recorded Time Inflammator y bowel disease 79582273 Active 2023 Karlie Cornell MD Attn: Dewey clement,[address] [facility], [place], [address], [place] [facility] 4 15:38:41 Gastroesoph ageal reflux disease without esophagitis 637623101 Active 2023 Karlie Cornell MD Attn: Dewey clement,[address] [place], [address], [place] [facility] 4 15:38:42 Hyperlipide franki 50707236 Active 2023 Karlie Cornell MD Attn: Dewey clement,[address] [facility], [place], [address], [place] [facility] 4 15:38:49 Hypothyroid is 09320926 Active 2023 Frank Mata MA null, [place] [facility] 5 11:45:59 [facility] 18776578 Active 2023 Karlie Cornell MD Attn: Dewey clement,[address] [facility], [place], [address], [place] [facility] 4 15:38:54 Rheumatoid arthritis 76977880 Active 2023 Karlie Cornell MD Attn: Dewey clement,[address] [facility], [place], [address], [place] [facility] 4 16:04:08 Chest pain 43080584 Active 2024 Frank Mata MA null, [facility] 11:45:58 Pain of left wrist 8502691564641 02 Active 2024 LEONARDO Mcguire, [place] - [facility] 11:47:52 Problem Notes None recorded. Procedures Surgical History Date Name Laterality Status Provider Name and Address Organization Details Recorded Time Appendectomy completed Gilda Milton [facility] - [place] 10/30/2023 15:06:00 Eye Surgery completed Gilda Rose, [facility] 10/30/2023 15:06:06 Joint Replacement completed Demario burnett Milton [facility] 10/30/2023 15:06:12 Tubal Ligation completed Gilda Milton [facility] 10/30/2023 15:06:23 Total hysterectomy completed Gilda Betancourtchase [facility] 10/30/2023 15:06:30 Imaging Results None recorded. Procedure [...] TABLET BY MOUTH ONCE DAILY AT BEDTIME 2024 active Not Available Not Available Not Avai lable methylpredn isolone 4 mg tablets in a [...] Updated DateTime 5 160.66 cm 28.1 kg/m2 05753.7 g 62 /min 97 % 97 % 132 mm[Hg] 68 mm[Hg] Rose Henriquez MA [facility] 5 11:05:13 Date Recorded Body height Body mass index (BMI) Body weight Heart rate Oxygen saturation Oxygen saturation in Arterial blood by Pulse oximetry Systolic blood pressure Diastolic blood pressure Provider Name and Address Organization Details Last Updated DateTime 5 160.66 cm 24 kg/m2 45638.7 2 g 68 /min 99 % 99 % 126 mm[Hg] 70 mm[Hg] Don Mast MA [facility] 5 12:43:14 Date Recorded Body height Body mass index (BMI) Body weight Heart rate Oxygen saturation Oxygen saturation in Arterial blood by Pulse oximetry Systolic blood pressure Diastolic blood pressure Provider Name and Address Organization Details Last Updated DateTime 5 160.66 cm 23.8 kg/m2 74933.6 9 g 77 /min 98 % 98 % 130 mm[Hg] 80 mm[Hg] Liliya Lofton MA [facility] 5 10:53:25 Date Recorded Body mass index (BMI) Body weight Provider Name and Address Organization Details Last Updated DateTime 02/01/2024 24.1 kg/m2 93100.15 g Malgorzata Cohen [facility] 01/31 11:50:00 Date Recorded Body height Oxygen saturation Oxygen saturation in Arterial blood by Pulse oximetry Heart rate Systolic blood pressure Diastolic blood pressure Provider Name and Address Organization Details Last Updated DateTime 4 160.66 cm 99 % 99 % 84 /min 130 mm[Hg] 72 mm[Hg] Paz Ordoñez MA [facility] 4 11:49:06 Date Recorded Body height Body mass index (BMI) Body weight Heart rate Oxygen saturation Oxygen saturation in Arterial blood by Pulse oximetry Systolic blood pressure Diastolic blood pressure Provider Name and Address Organization Details Last Updated DateTime 4 160.66 cm 24.7 kg/m2 11367.3 7 g 68 /min 95 % 95 % 128 mm[Hg] 64 mm[Hg] Rose Henriquez MA [facility] 4 11:15:29 Social History Question Answer Notes LastModified by Organizat ion Details LastModified Time Tobacco Smoking Status Never Smoker KISHOR Marino, [facility] 10/30/2023 15:05:49 Do You Have An Advance [...] 7 Days, How Much Pain Have You [place]? Some Information not available 02/01/2024 In General, [...] Past 7 Days, How Often Have You [place] Sleepy In The Daytime? Sometimes Information not [...] anxious, or unable to sleep at night)? [id number] Information not available 02/01/2024 Family History Relationship [...] Influenza, recombinant, quadrivalent, PF 0 completed [place]ata [place], [place] [facility] 01/30/2024 11:17:06 zoster recombinant 0 completed [place] [facility] 01/30/2024 11:17:06 zoster recombinant 9 completed [place] [facility] 01/30/2024 11:17:06 Influenza, high-dose, quadrivalent, PF 3 completed [place] [facility] 01/30/2024 11:17:06 Influenza, high-dose, quadrivalent, PF 2 completed [place]gor[place] [facility] 01/30/2024 11:17:06 Influenza, high-dose, quadrivalent, PF 1 completed [place] [facility] 01/30/2024 11:17:06 COVID-19, mRNA, LNP-S, PF, 100 mcg/0.5mL dose or 50 mcg/0.25mL dose 1 completed [place]gor[place] [facility] 01/30/2024 11:17:06 COVID-19, mRNA, LNP-S, PF, 100 mcg/0.5mL dose or 50 mcg/0.25mL dose 1 completed [place] [facility] 01/30/2024 11:17:06 COVID-19, mRNA, LNP-S, PF, 100 mcg/0.5mL dose or 50 mcg/0.25mL dose 1 completed [place]gor[place] [facility] 01/30/2024 11:17:06 COVID-19, mRNA, LNP-S, PF, 100 mcg/0.5mL dose or 50 mcg/0.25mL dose 1 completed [place]gor[place] [facility] 01/30/2024 11:17:06 COVID-19, mRNA, LNP-S, PF, 100 mcg/0.5mL dose or 50 mcg/0.25mL dose 1 completed [place]gor[place] [facility] 01/30/2024 11:17:06 COVID-19, mRNA, LNP-S, bivalent, PF, 50 mcg/0.5 mL or 25mcg/0.25 mL dose 2 completed [place]gor[place] [facility] 01/30/2024 11:17:06 COVID-19, mRNA, LNP-S, PF, 50 mcg/0.5 mL 3 completed [place] [facility] 01/30/2024 11:17:06 pneumococcal polysaccharide PPV23 9 completed [place] [facility] 01/30/2024 11:17:06 Pneumococcal conjugate PCV 13 7 completed [place] [facility] 01/30/2024 11:17:06 Influenza, high-dose, trivalent, PF 4 completed [place] [facility] 01/30/2024 11:17:06 Influenza, high-dose, trivalent, PF 8 completed [place] [facility] 01/30/2024 11:17:06 Influenza, high-dose, trivalent, PF 7 completed [place] [facility] 01/30/2024 11:17:06 Influenza, high-dose, trivalent, PF 3 completed [place] [facility] 01/30/2024 11:17:06 Influenza, high-dose, trivalent, PF 5 completed [place] [facility] 01/30/2024 11:17:06 Influenza, split virus, quadrivalent, PF 9 completed [place] [facility] 01/30/2024 11:17:06 COVID-19, mRNA, LNP-S, PF, 50 mcg/0.5 mL 4 completed Don Mast [place] [facility] 10/10/2024 12:41:16 Influenza, high-dose, trivalent, PF 4 completed Don Mast [place] [facility] 10/10/2024 12:41:16 Past Encounters Encounter ID Performer Location Encounter Start Date Encounter Closed Date Diagnosis/Indication Diagnosis SNOMED-CT Code Diagnosis ICD10 Code Diagnosis Note [id number] Karlie Cornell MD [facility] (Adult Med) [address] [place] [address] 10/30/2023 14:37:15 10/30/2023 15:51:57 Postmenopausal state 71336980 Z78.0 Hypothyroidism 02675825 E03.9 Hyperlipidemia 95614365 E78.5 Insomnia 903277681 G47.0 0 Gastroesop hageal reflux disease without esophagitis 103302767 K21.9 Inflammato ry bowel disease 24879131 K52.9 Ankylosing spondylitis 5308363 M45.9 [id number] Karlie Cornell MD [facility] [place] [address] [place] [address] 01/22/2024 10:48:29 01/22/2024 11:30:35 Gastroesophageal reflux disease without esophagitis 238510025 K21.9 Hyperlipidemia 93116892 E78.5 Hypothyroidism 00400409 E03.9 Inflammato ry bowel disease 98613512 K52.9 [id number] Karlie Cornlel MD [facility] [facility] [place] [address] [place] [id number] 02/01/2024 11:28:20 02/01/2024 12:13:48 Adult health examination 017351221 Z00.00 Health Risk Assessment collected and reviewed [id number] Karlie Cornell MD [facility] [facility] [place] [address] [place] [id number] 05/20/2024 10:52:06 05/20/2024 12:01:29 Hyperlipidemia 36932309 E78.5 Hypothyroidism 37375096 E03.9 Long-term drug therapy 457566807 Z79.891 Gastroesop hageal reflux disease without esophagitis 318163163 K21.9 Inflammato ry bowel disease 65465768 K52.9 Rheumatoid arthritis 698 66364 M06.9 [id number] Karlie Cornell MD [facility] [facility] [place] [address] [place] [id number] 09/23/2024 10:41:56 09/23/2024 11:41:57 Body mass index 25-29 - overweight 555956453 Z68.28 Overweight 756706845 E66 .3 Gastroesop hageal reflux disease without esophagitis 217889903 K21.9 Hyperlipidemia 89936704 E78.5 Hypothyroidism 86120051 E03.9 Inflammato ry bowel disease 13232015 K52.9 Rheumatoid arthritis 698 12929 M06.9 [id number] Karlie Cornell MD [facility] [facility] [place] [address] [place] [id number] 10/10/2024 12:18:02 10/10/2024 13:14:52 Body mass index 20-24 - normal 729439705 Z68.24 Bronchitis 97785599 J40 [id number] Karlie Cornell MD [facility] [facility] [place] [address] [place] [id number] 01/13/2025 10:36:43 01/13/2025 11:44:06 Body mass index 20-24 - normal 545980599 Z68.23 Overweight 356896202 E66 .3 Chest pain 47712207 R07. 9 Hypothyroidism 06466759 E03.9 Gastroesop hageal reflux disease without esophagitis 331007268 K21.9 Hyperlipidemia 90323903 E78.5 Pain of left wrist [address] 24675 M25.532 Health Concerns Section Related Observation LastModified by Organization Detai ls LastModified Time None Recorded Concern Status LastModified by Organization Details LastModified Time None Recorded Advance Directives Directive Y: Payers Insurance Date Sequence Insurance Name Policy Number Policy Morgan Covered Member ID Morgan Member ID Guarantor Name 01/12/2025 1 [facility] (MEDICARE REPLACEMENT/A DVANTAGE - HMO) [id number] Marnie Bonds [id number] Marnie Bonds Notes Date Note Type Note Provider Name and Address Organization Details Recorded Time 02/01/2024 text/html MAW 2Reported bypatient.Diet and Nutrition:healthy diet Fracture Risk:no [...] arms Karlie Cornell MD Attn: Accounting[address] [facility], [place], [address], [place] [facility] 03/11/2024 20:35:18 05/20/2024 text/html GERD no nausea vomiting or heartburn. Inflammatory bowel disease she is not having any bleeding but she always has twinges of pain. Hypothyroid no heat or cold intolerance dyslipidemia she is trying to follow a low-fat diet. Karlie Cornell MD Attn: Accounting, [address] [facility], [place], [address], [place] [facility] 05/25/2024 16:05:13 09/23/2024 text/html hyperlipidemia d oes try to follow a diet no side effects from medications. Hypothyroid no heat or cold intolerance at this time. Inflammatory bowel disease appears to be stable her rheumatoid arthritis is not having any flare-ups at this time GERD no nausea no vomiting Karlie Cornell MD Attn: Accounting, [address] [facility], [place], [address], [place] [facility] 09/23/2024 13:37:24 10/10/2024 text/html cough congestion went to an urgent care COVID and flu negative was not feeling any better and subsequently went back to an urgent care up here in [place] area her 1st 1 was in [place] given a steroid injection diagnosed with bronchitis and given a Medrol Dosepak and albuterol she continues with cough that is now yellow and she is not really wheezing short of breath but she is now having lots of yellow sputum Karlie Cornell MD Attn: Accounting, [address] [facility], [place], [address], [place] [facility] 11/10/2024 18:06:28 OBGyn Episode No OBEpisode recorded.
--- OUTSIDE RECORDS SUMMARY | 2025-01-27 13:37 | XMS_ITS | Continuity of Care Document ---
Author Organization [facility] Address [address] [place] [address] [address] [place] [address] Phone Care Team Providers Care Director Business Travel Name Role Phone Rico Rawls Unavailable Unavailable Advance Directives Directive Yes / No Effective Date File Name No Information Encounters Encounter Description Practice Location Reason(s) For Visit Diagnoses Date Provider Providers Copied on Encounter [facility], [address] [place] [address] [address], [place], [place], [address], [place] tel:[phone] SEC [facility] No Information Dec-2 0-200 1 Tremainesy Edward. [address] [facility] , [address], [place], [address], [place]. tel:[phone] Family History Family Member Type Diagnosis Age At Onset No Information Payers Payer name Insurance type Covered green party ID Authoriza tion(s) No Information Social [...]
--- OUTSIDE RECORDS SUMMARY | 2025-01-27 13:37 | XMS_ITS | CONTINUITY OF CARE DOCUMENT ---
Author Name anna castillo Address Unknown Organization [facility] Address [address] [place] [address] [address] [place] [address] Phone [phone] Care Team Providers Care Laminating Machine Operator Helper Name Role Phone Raghu VIVAS, Jc Holt Unavailable [phone] Jc Krishnamurthy MD Unavailable [phone] KARLIE BOUDREAUX MD Unavailable INSURANCE PROVIDERS Payer name Policy type / Coverage type Wallace red green party ID A[employer] MEDICARE ADVANTAGE ([facility] COMPLETE PPO) Other [id number]
== END 2025-01-27 12:47 | disposition home or self-care (01) ==
LOC: ANHLAB 12:47
PROVIDERS: PCP Internal Medicine; Visit Provider Nurse Practitioner Family
DX: R19.7 Diarrhea, unspecified (principal)
CPT/HCPCS: 83993; 87045; 87427; 87449; 87493

== ENCOUNTER 2025-01-31 08:25 | Outpatient (CLI) | payer MEDICARE, SELFPAY ==
--- NOTE | 2025-01-31 | EST_ITS ---
Patient Info Name: Marnie Bonds Age: 84 years : 1940 Gender: Female Ht: 63 in Wt: 134 lbs BSA: 1.65 m2 Exam Date: 01/31/2025 8:32 AM Patient Status: O Admit Date: 01/31/2025 Exam Type: CA stress es w NM A regadenoson stress test was performed. Staff Referring Physician: Nazario Cornell Attending Provider: Nazario Cornell Exercise Technologist: Delfina Stahl Exercise Physician: Vick Lozano DO Summary 1. 1. Negative lexiscan stress test for ischemic ST changes by ECG criteria. 2. 2. Baseline hypertension. 3. 3. Nuclear scan to follow and will be reported separately. Please correlate with it. 4. 4. Patient informed of the above results. Protocol: Lexiscan Stress ECG Details Stage: REST Duration (min): 1 min : 56 sec HR (bpm): 57 SBP (mmHg): 189 DBP (mmHg): 70 Stage: REST Duration (min): 4 min : 13 sec HR (bpm): 62 SBP (mmHg): 189 DBP (mmHg): 70 Stage: STAGE 1 Duration (min): 0 min : 59 sec HR (bpm): 78 SBP (mmHg): 189 DBP (mmHg): 70 Stage: RECOVERY Duration (min): 1 min : 0 sec HR (bpm): 91 SBP (mmHg): 205 DBP (mmHg): 71 Stage: RECOVERY Duration (min): 2 min : 0 sec HR (bpm): 87 SBP (mmHg): 205 DBP (mmHg): 71 Stage: RECOVERY Duration (min): 3 min : 0 sec HR (bpm): 83 SBP (mmHg): 167 DBP (mmHg): 69 Stage: RECOVERY Duration (min): 3 min : 33 sec HR (bpm): 84 SBP (mmHg): 167 DBP (mmHg): 69 Rest HR: 62 bpm Peak HR: 91 bpm Rest Sys BP: 189 mmHg Peak Sys BP: 205 mmHg Max Pred HR: 135 bpm % Max Pred HR: 67 % Target HR: 115 bpm Max RPP: 18,655 bpm*mmHg Termination Reason: Completed protocol Cardiac Symptoms: None Total Time: 1 min : 0 sec Rest Jewell BP: 70 mmHg Peak Jewell BP: 71 mmHg Total Dose: 0.4 mg Resting ECG Sinus rhythm. Stress ECG No ST changes. Arrhythmias None. Report Signatures
--- NOTE | ~2025-01-31 | NM_ITS ---
EXAMINATION: NM es stress w perfusion DATE: 01/31/2025 10:55 INDICATION: Chest pain TECHNIQUE: Rest images were obtained following intravenous administration of 10.7 mCi Tc99m tetrofosm in (Myoview). The patient was infused intravenously with Lexiscan (Regadenoson). Then, 33.0 mCi Tc99m tetrofosmin (Myoview) was administered intravenously, and stress images were obtained. Data was zelda nstructed into short axis and horizontal and vertical long axis SPECT images. Gated SPECT images were also obtained. COMPARISON: None. FINDINGS: There is no definite reversible or fixed perfusion abnormality to suggest ischemia or infar ction. There is normal left ventricular chamber size, wall motion and ejection fraction. Left ventr icular ejection fraction measures 68%. IMPRESSION: 1. Normal myocardial perfusion at rest and during stress. 2. Left ventricular ejection fraction measuring 68%. Reviewed, dictated and finalized at location A.
== END 2025-01-31 08:26 | disposition home or self-care (01) ==
PROVIDERS: PCP Internal Medicine; Visit Provider Internal Medicine
DX: R07.9 Chest pain, unspecified (principal)
CPT/HCPCS: 78452; 93017; A9502

== ENCOUNTER 2025-02-01 08:56 | Emergency (ER) | payer MEDICARE, SELFPAY ==
[2025-02-01 09:10] VITALS: BP 180/80; PULSE 74; RESP 16; TEMP 36.4; O2SAT 100
--- NOTE | 2025-02-01 09:46 | ED_ITS ---
HPI - General Adult General Chief complaint: Wound/Laceration Stated complaint: Cut Left Leg Source: patient Mode of arrival: ambulatory Limitations: no limitations History of Present Illness HPI narrative: Pt presents for evaluation of a skin tear to the anterolateral aspect of the left lower leg. She cut herself on a screw which was sticking out of a stool. She applied steri-strips to the area. She removed them today. She has some redness around the skin tear. No fever or purulent output. She is not diabetic. Date of last tetanus unknown. Reports mild pain in the affected area without numerical rating. Related Data Home Medications ?Medication ?Instructions ?Recorded ?Confirmed ?Last Taken ?Type atorvastatin 10 mg tablet 10 mg PO DAILY 06/21/19 11/20/24 1 Day Ago History ~05/24/22 nifedipine 30 mg tablet,extended 30 mg PO DAILY 06/21/19 11/20/24 05/25/22 History release 24 hr levothyroxine 100 mcg tablet 100 mcg PO DAILY 04/09/20 11/20/24 05/25/22 History multivit with minerals-iron 18 1 tablet PO DAILY 04/09/20 11/20/24 1 Day Ago History mg-folic ac 400 mcg-vit K 25 mcg ~05/24/22 tablet (Adults Multivitamin) zolpidem 10 mg tablet 10 mg PO HS PRN Insomnia 04/09/20 11/20/24 04/21/20 History tramadol 50 mg tablet (Ultram) 50 mg PO TID PRN Pain, Moderate 05/12/22 11/20/24 Unknown History gabapentin 300 mg capsule 300 mg PO BID 03/21/24 11/20/24 Unknown History tofacitinib 5 mg tablet (Xeljanz) 5 mg PO DAILY 03/21/24 11/20/24 Unknown History prednisone 2.5 mg tablet mg 02/01/25 Unknown History terbinafine HCl 250 mg tablet mg 02/01/25 Unknown History Allergies Allergy/AdvReac Type Severity Reaction Status Date / Time No Known Allergies Allergy Verified 02/01/25 09:05 Review of Systems Review of Systems: CONSTITUTIONAL: Denies fever, chills, or sweats. EYES: Denies visual changes, redness, or discharge. ENT: Denies rhinorrhea, congestion, sore throat, or otalgia. CARDIOVASCULAR: Denies chest pain, palpitations, or edema. RESPIRATORY: Denies cough or dyspnea. GASTROINTESTINAL: Denies abdominal pain, nausea, vomiting, or diarrhea. GENITOURINARY: Denies dysuria or hematuria. SKIN: Reports skin tear to anterolateral aspect of the left lower leg MUSCULOSKELETAL: Denies back pain, joint pain, or myalgia. NEUROLOGIC: Denies headache, numbness, dizziness, or weakness. PSYCHIATRIC: Denies anxiety or depression. [facility] Past Medical History Medical History Rectal bleeding Microscopic colitis Rheumatoid arthritis Colitis Hiatal hernia Appetite loss Abdominal tenderness Bloating Early satiety Nausea and vomiting Arthritis Hyperlipidemia Hypertension Ulcerative colitis Diarrhea Rash GERD (gastroesophageal reflux disease) Surgical History Surgical History Hx of knee surgery Family History Family History Mother Family history of osteoporosis Family history of arthritis Father Hypertension Sibling Family history of Parkinson's disease Social History Social History Smoking status: Former smoker Second hand tobacco smoke exposure: No Alcohol intake: never Substance use: never Substance use type: does not use Do You Feel Safe in your Home?: Yes Lack of Transportation: No Lack of Food: Never True Current Housing: I Have Housing Concerned About Future Housing: No Difficulty Paying Gas/Electric Bills: No Difficulty Paying for Meds: No Currently Unemployed: No Education: Associate Degree Difficulty w/ Childcare or Family Care: No Living arrangements: with family Occupation/Education: retired 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 HEAD: Normocephalic, atraumatic. EYES: PERRLA and EOMI. ENT: Nares clear, no rhinorrhea or epistaxis. Mucous membranes moist. Oropharynx without tonsillar hypertrophy exudate or other lesions. Bilateral TMs pearly shafer nonbulging NECK: Supple. No adenopathy or masses. No carotid bruits or JVD CHEST: Clear to auscultation. No respiratory distress. No wheezes rales or rhonchi HEART: Regular rate and rhythm. No murmur heard. Normal peripheral pulses. ABDOMEN: Soft, nontender, nondistended, normal active bowel sounds. EXTREMITIES: Normal range of motion. No edema. SKIN: There is a 4.5cm skin tear in flap formation to anterolateral aspect of the left lower leg with some surrounding erythema. There is dried sanguinous drainage present. No purulence. NEURO: No focal deficits. Alert and oriented x3. PSYCH: Normal mood and affect. Course Course Emergency Course: This is an 84-year-old female who presented for evaluation of a skin tear to left lower leg. She was updated on tetanus. There is some surrounding redness. Will start cephalexin 500 mg 4 times daily. Wash area with antibacterial soap and water twice daily, pat dry, apply Neosporin. Follow-up with primary provider. Go to the ER for worsening symptoms. Pt in agreement with plan of care. Level of Care: Express Care Visit Vital Signs Vital signs: Vital Signs Temperature 36.4 C L 02/01/25 09:10 Pulse Rate 74 02/01/25 09:10 Respiratory Rate 16 02/01/25 09:10 Blood Pressure 180/80 H 02/01/25 09:10 Pulse Oximetry 100 02/01/25 09:10 Temperature 36.4 C L 02/01/25 09:10 Pulse Rate 74 02/01/25 09:10 Respiratory Rate 16 02/01/25 09:10 Blood Pressure 180/80 H 02/01/25 09:10 Pulse Oximetry 100 02/01/25 09:10 Medical Decision Making Vital Signs Vital Signs: Vital Signs Temperature 36.4 C L 02/01/25 09:10 Pulse Rate 74 02/01/25 09:10 Respiratory Rate 16 02/01/25 09:10 Blood Pressure 180/80 H 02/01/25 09:10 Pulse Oximetry 100 02/01/25 09:10 Temperature 36.4 C L 02/01/25 09:10 Pulse Rate 74 02/01/25 09:10 Respiratory Rate 16 02/01/25 09:10 Blood Pressure 180/80 H 02/01/25 09:10 Pulse Oximetry 100 02/01/25 09:10 Discharge Plan Discharge Clinical Impression: Skin tear Patient Disposition: Home Condition: Stable Instructions: Antibiotic Form, Skin Tear (ED), Acute Wounds (ED) Additional Instructions: WASH AREA TWICE DAILY WITH ANTIBACTERIAL SOAP AND WATER PAT TRY APPLY NEOSPORIN Patient Language: Arabic Prescriptions: New cephalexin 500 mg capsule 500 mg PO Q6H Qty: 40 0RF No Action terbinafine HCl 250 mg tablet prednisone 2.5 mg tablet atorvastatin 10 mg Tablet 10 mg PO DAILY nifedipine 30 mg Tablet Extended Release 24hr 30 mg PO DAILY Xeljanz 5 mg tablet 5 mg PO DAILY gabapentin 300 mg capsule 300 mg PO BID mesalamine [Pentasa] 500 mg capsule, extended release 1,000 mg PO BID Qty: 120 3RF levothyroxine 100 mcg tablet 100 mcg PO DAILY zolpidem 10 mg tablet 10 mg PO HS PRN (Reason: Insomnia) Adults Multivitamin 18 mg iron-400 mcg-25 mcg Tablet 1 tablet PO DAILY omeprazole 40 mg capsule,delayed release(DR/EC) See Rx Instructions .ROUTE .COMPLEX Qty: 200 2RF Dose Instruction: TAKE 1 CAPSULE BY MOUTH TWICE DAILY Rx Instructions: TAKE 1 CAPSULE BY MOUTH TWICE DAILY budesonide 3 mg capsule,delayed,extend.release 3 mg PO DAILY Qty: 30 0RF tramadol [Ultram] 50 mg Tablet 50 mg PO TID PRN (Reason: Pain, Moderate) Follow-up/Referrals: Leander Cornell, RT(R) [Primary Care Provider] - Time of Disposition: 09:44
[2025-02-01] MEDS: TETANUS,DIPHTHERIA,AC PERTUSSIS ADULT (0.5 ML) BOOSTRIX IM (09:47)
== END 2025-02-01 09:51 | disposition home or self-care (01) ==
PROVIDERS: Emergency Provider Nurse Practitioner
DX: S81.812A Laceration without foreign body, left lower leg, initial encounter (principal); W26.8XXA Contact with other sharp object(s), not elsewhere classified, initial encounter; Z23 Encounter for immunization; I10 Essential (primary) hypertension; E78.5 Hyperlipidemia, unspecified; K21.9 Gastro-esophageal reflux disease without esophagitis; M19.90 Unspecified osteoarthritis, unspecified site; M06.9 Rheumatoid arthritis, unspecified; Z87.891 Personal history of nicotine dependence
CPT/HCPCS: 90471; 90715; 99213; G0463

== ENCOUNTER 2025-02-13 09:16 | Outpatient (CLI) | payer MEDICARE, SELFPAY ==
--- NOTE | ~2025-02-13 | XR_ITS ---
XR tibia fibula LT 2V Ordering provider: Nazario Cornell, History: . Cellulitis of lt lower limb, CUT NOT HEALING . Comparison: None. FINDINGS: BONES: No acute fracture or dislocation. Minimal sclerotic changes seen in the midshaft of the left t ibia. Periostitis cannot be excluded. Further evaluation advised. JOINT SPACES: Total knee arthroplasty. SOFT TISSUES: Normal. IMPRESSION: Periostitis in the midshaft of the tibia cannot be excluded. Further evaluation advised. Otherwise,No acute osseous abnormality left leg. Reviewed, dictated and finalized at location A.
--- OUTSIDE RECORDS SUMMARY | 2025-02-13 09:25 | XMS_ITS | Continuity of Care Document ---
Author Organization [facility] Address [address] [place] [address] [address] [place] [address] Phone Care Team Providers Care Court Messenger Name Role Phone Rico Rawls Unavailable Unavailable Advance Directives Directive Yes / No Effective Date File Name No Information Encounters Encounter Description Practice Location Reason(s) For Visit Diagnoses Date Provider Providers Copied on Encounter [facility], [id number] [place] [address] [address], [place], [place], [id number], [place] tel:[phone] [facility] No Information Dec-2 0-200 1 Tremainesy Edward. [address] , [address], [place], [address], [place]. tel:[phone] Family History Family Member Type Diagnosis Age At Onset No Information Payers Payer name Insurance type Covered alliance party ID Authoriza tion(s) No Information Social [...]
--- OUTSIDE RECORDS SUMMARY | 2025-02-13 09:25 | XMS_ITS | Clinical Summary ---
Author Organization [facility] Actions Address [address] [place] [address] Care Team Providers Care Manufacturing Area Manager Name Role Phone Dalton De Leon MD Unavailable [phone] Nazario Cornell MD Primary Care Provider [phone] Source Comments [facility] Actions,non-owned Affiliates and Associated Physician Practices is amultiple site organization consisting of ambulatory clinics and hospital sitesin [place], [place], [place] and [place]. This disclosure is being madepursuant to the Care Everywhere program and may not contain all information available regarding this patient. 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 Gender Identity Not on file Sexual Orientation [...] this topic Medical Devices Implanted Type Area Online Education Manager Device Identifier Shelf Expiration Date Model / Serial / Lot Cmnt Bone Cblt 40gm Hvisc Strl Implanted:Qty: 1 on 11/12/2018 by Hu Coy MD at [facility] [employer] 02/07/2020 600-15-00 0 / / [id number] Cmpnt Ptlr 28mm 1 Pg Wire Ascnt Arcm Kn Implanted:Qty: 1 on 11/12/2018 by Hu Coy MD at [facility] [employer] 11/07/2023 [id number] / / [id number] Tray Tib 63mm Kn Cocr I Beam Implanted:Qty: 1 on 11/12/2018 by Hu Coy MD at [facility] [employer] 06/15/2028 [id number] / / [id number] Cmpnt Fem Kn Rt Cr Cmnt Prm Vngrd Intlk 60mm Implanted:Qty: 1 on 11/12/2018 by uH Coy MD at [facility] [employer] 10/01/2028 [id number] / / [id number] As Tibial Bearing 10mm X 63mm Implanted:Qty: 1 on 11/12/2018 by Hu Coy MD at [facility] [employer] 06/14/2022 [id number] / / [id number] Insurance [facility]IC[facility] ADV Advance Directives * Full Code (Latest Code Status on File) Date Activated Date Inactivated Comments 11/12/2018 4:31 PM 11/14/2018 12:55 PM Care Teams Manufacturing Area Manager Relationship Specialty Start Date End Date Nazario Cornell MD [address] [facility] [address] [place] [address] PCP - General Internal Medicine 07/27/20 Dalton De Leon MD [address] [email or web address] [address] [place] [address] Internal Medicine 12/16/11
--- OUTSIDE RECORDS SUMMARY | 2025-02-13 09:25 | XMS_ITS | Data Portability ---
Author Organization [facility] Address [address] [place] [address] Care Team Providers Care Picker / Packer Name Role Phone KARLIE CORNELL Primary Care Provider EDWIN Baker OTHER Assessment Encounter Date Assessment Date Assessment LastModified by Organization Details LastModified Time 05/20/2024 05/20/2024 she says she will get her flu COVID and RSV shots at the pharmacy blood work will be ordered diagnosis in the management of those diagnosis have been discussed all questions have been answered follow up with me in 4 months Not available 05/25/2024 16:04:54 09/23/2024 09/23/2024 healthy lifestyle care instructions we will continue current therapy diagnosis and assessment and plan have been discussed all questions answered follow up in 4 months [email or web address] Not available 09/23/2024 13:37:05 10/10/2024 10/10/2024 doxycycline [...] available Lab CBC w/ auto diff 2023 10 024 [facility] (Lab), [address] [place] [address] [address], [place], [address], 05/23/2024 12:23:27 vitamin D, 25-hydrox y, total, serum 2023 [facility] (Lab), [address] [place] [address], [id number], 05/23/2024 12:23:19 T3, free, serum or plasma 2023 [facility] (Lab), [address] [place] [address], [id number], 05/23/2024 12:22:22 TSH, serum or plasma 2023 [facility] (Lab), [address] [place] [address], [id number], 05/23/2024 12:23:02 T4, free, serum 2023 [facility] (Lab), [address] [place] [address], [id number], 05/23/2024 12:23:10 lipid panel, serum 2023 [facility] (Lab), [address] [place] [address], [id number], 05/23/2024 12:22:44 CMP, serum or plasma 2023 024 [facility] (Lab), [address] [place] [address], [id number], 05/23/2024 12:24:07 magnesium , serum or plasma 2023 [facility] (Lab), [address] [place] [address], [id number], 05/23/2024 12:23:45 Referral None recorded. Procedures None recorded. Surgeries None recorded. Imaging None recorded. Medication Orders doxycycli ne hyclate 100 mg capsule 2024 025 [facility], [address] [place], [address], 01/13/2025 10:57:25 Patient TargetsNo targets recorded. Patient Instructions Encounter Date Encounter Id Patient Instructions Last Modified By Organization Details Last Modified Time 09/23/2024 [id number] A healthy lifestyle: care instructions [email or web address] Not available 09/23/2024 13:16:44 Reason for Referral None Reported. Results Created Date Observation Date Name Description Value Unit Range Abnormal Flag Note LastModifiedBy Organization Detail LastModifiedTime 01/14/2001/13/2025 XR, chest No observ ation record ed. [address], [place], [address], 01/17/2025 17:07:35 01/14/20 25 01/13/2025 XR, wrist No observ ation record ed. [address], [place], [address], 01/17/2025 17:07:35 01/14/20 25 01/13/2025 XR, wrist No observ ation record ed. [address], [place], [address], 01/17/2025 17:07:35 01/14/20 25 01/13/2025 XR, wrist No observ ation record ed. [address], [place], [address], 01/17/2025 17:07:36 01/14/20 25 01/13/2025 XR, chest No observ ation record ed. [email or web address] Not Available 2024 17:07:35 02/01/20 25 01/31/2025 anne can cardi olite stres s test (PROC ) No observ ation record ed. [address], [place], [address], 02/06/2025 22:31:20 02/01/20 25 01/31/2025 anne can cardi olite stres s test (PROC ) No observ ation record ed. [address] [place] [address], [address], 02/06/2025 22:31:21 02/01/20 25 01/31/2025 anne can cardi olite stres s test (PROC ) No observ ation record ed. [facility] [address], [place], [address], 02/06/2025 22:31:21 Result Notes None recorded. Problems Name Problem SNOMED Code Status Onset Date Resolution Date Notes Provider Name and Address Organization Details Recorded Time Inflammator y bowel disease 97393705 Active 2023 Karlie Cornell MD Attn: Dewey clement,[address] [facility], [place], [address], [place] - [facility] 4 15:38:41 Gastroesoph ageal reflux disease without esophagitis 130525343 Active 2023 Karlie Cornell MD Attn: Dewey g,[address] [facility], [place], [address], [place] [facility] 4 15:38:42 Hyperlipide franki 67664849 Active 2023 Karlie Cornell MD Attn: Dewey g,[address] [facility], [place], [address], [place] [facility] 4 15:38:49 Hypothyroid ism 33110395 Active 2023 Frank Mata [place] null, [place] [facility] 5 11:45:59 [facility] 54213748 Active 2023 Karlie Cornell MD Attn: Luciain g,[address] [facility], [place], [address], [place] [facility] 4 15:38:54 Rheumatoid arthritis 46024183 Active 2023 Karlie Cornell MD Attn: Dewey g,[address] [facility], [place], [address], [place] [facility] 4 16:04:08 Chest pain 92056872 Active 2024 Frank Mata [place] null, [place] [facility] 11:45:58 Pain of left wrist 5986580453436 02 Active 2024 Frank Mata MA null, [facility] 11:47:52 Problem Notes None recorded. Procedures Surgical History Date Name Laterality Status Provider Name and Address Organization Details Recorded Time Appendectomy completed Gilda Rose, [place] - [facility] 10/30/2023 15:06:00 Eye Surgery completed Gilda Rose, [facility] - [place] 10/30/2023 15:06:06 Joint Replacement completed Demario Rose, [facility] - [place] 10/30/2023 15:06:12 Tubal Ligation completed Gilda Rose [facility] - [facility] 10/30/2023 15:06:23 Total hysterectomy completed Gilda Rose [facility] - [place] 10/30/2023 15:06:30 Imaging Results None recorded. Procedure [...] BY MOUTH ONE HOUR BEFORE APPOINTME NT 02/12 completed Not Available Not Available Not Available doxycycline hyclate 100 mg capsule TAKE [...] TAKE 1 CAPSULE BY MOUTH AT BEDTIME 02/12 completed Not Available Not Available Not Available potassium chloride ER 10 mEq tablet,exte [...] 1 TABLET BY MOUTH 4 TIMES DAILY WITH TYLENOL FOR PAIN CONTROL active Not Available Not Available No t [...] Not Available Not Available No t Available cephalexin 500 mg capsule TAKE 1 CAPSULE BY MOUTH EVERY 6 HOURS 02/12 completed Not Available Not Available Not Available gabapentin 300 mg capsule TAKE 1 TO 3 CAPSULES BY MOUTH ONCE DAILY AT BEDTIME FOR BETTER SLEEP. active Not Available Not Available No t Available budesonide DR - ER 3 mg capsule,del ayed,extend ed release TAKE 1 CAPSULE BY MOUTH ONCE DAILY active Not Available Not Available No t Available zolpidem 10 mg tablet TAKE 1 [...] completed Not Available Not Available Not Available Bactrim DS 800 mg-160 mg tablet Take 1 tablet twice a day by oral route for 10 days. 2024 active Not Available Not Available Not Avai lable nitrofurant oin monohydrate /macrocryst als 100 mg capsule TAKE 1 CAPSULE BY MOUTH EVERY 12 HOURS FOR 10 DAYS 01/21 completed Not Available Not Available Not Available Pentasa 500 mg capsule,con trolled release TAKE 2 CAPSULES BY MOUTH TWICE DAILY active Not Available Not Available No t Available Xeljanz 5 mg tablet Take 1 tablet twice a day by oral route. 01/13 completed Not Available Not Available Not Available Vitals Date Recorded Body height Body mass index (BMI) Body weight Heart rate Oxygen saturation Oxygen saturation in Arterial blood by Pulse oximetry Systolic And Diastolic Provider Name and Address Organization Details Last Updated DateTime 5 160.66 cm 28.1 kg/m2 19489.7 g 62 /min 97 % 97 % 132/68 mm[Hg] Rose Henriquez MA [facility] 5 11:05:13 Date Recorded Body height Body mass index (BMI) Body weight Heart rate Oxygen saturation Oxygen saturation in Arterial blood by Pulse oximetry Systolic And Diastolic Provider Name and Address Organization Details Last Updated DateTime 5 160.66 cm 24 kg/m2 29639.7 2 g 68 /min 99 % 99 % 126/70 mm[Hg] Don Mast MA [facility] 5 12:43:14 Date Recorded Body height Body mass index (BMI) Body weight Heart rate Oxygen saturation Oxygen saturation in Arterial blood by Pulse oximetry Systolic And Diastolic Provider Name and Address Organization Details Last Updated DateTime 5 160.66 cm 23.8 kg/m2 75431.6 9 g 77 /min 98 % 98 % 130/80 mm[Hg] Liliya Lofton MA [facility] 5 10:53:25 Date Recorded Body height Body mass index (BMI) Body weight Heart rate Oxygen saturation Oxygen saturation in Arterial blood by Pulse oximetry Systolic And Diastolic Provider Name and Address Organization Details Last Updated DateTime 5 160.66 cm 23.9 kg/m2 58808.2 8 g 69 /min 98 % 98 % 150/90 mm[Hg] Liliya Lofton MA [facility] 5 17:20:51 Date Recorded Body height Body mass index (BMI) Body weight Heart rate Oxygen saturation Oxygen saturation in Arterial blood by Pulse oximetry Systolic And Diastolic Provider Name and Address Organization Details Last Updated DateTime 4 160.66 cm 24.7 kg/m2 17200.3 7 g 68 /min 95 % 95 % 128/64 mm[Hg] Rose Henriquez MA [facility] 4 11:15:29 Social History Question Answer Notes LastModified by Organizat ion Details LastModified Time Tobacco Smoking Status Never Smoker Gilda KISHOR Rose, [place] - [place] 10/30/2023 15:05:49 Do You Have An Advance [...] 7 Days, How Much Pain Have You Brawley? Some Information not available 02/01/2024 In General, [...] Past 7 Days, How Often Have You Brawley Sleepy In The Daytime? Sometimes Information not available 02/01/2024 # Alcohol Drinks Per Week 0 Information not available 02/01/2024 What Was The Date Of Your Most Recent Tobacco Screening? 02/12/2025 Non Smoker [email or web address] Information not available 02/12/2025 What Is Your Relationship Status? Information not [...] anxious, or unable to sleep at night)? [id number] Information not available 02/01/2024 Family History Relationship [...] Influenza, recombinant, quadrivalent, PF 0 completed Malgorzata Hamer [place], [place] [facility] 01/30/2024 11:17:06 zoster recombinant 0 completed [place] [facility] 01/30/2024 11:17:06 zoster recombinant 9 completed [place]gor[place] [facility] 01/30/2024 11:17:06 Influenza, high-dose, quadrivalent, PF 3 completed [place] [facility] 01/30/2024 11:17:06 Influenza, high-dose, quadrivalent, PF 2 completed [place] [facility] 01/30/2024 11:17:06 Influenza, high-dose, quadrivalent, PF 1 completed [place] [facility] 01/30/2024 11:17:06 COVID-19, mRNA, LNP-S, PF, 100 mcg/0.5mL dose or 50 mcg/0.25mL dose 1 completed [place] [facility] 01/30/2024 11:17:06 COVID-19, [...] PF, 50 mcg/0.5 mL 3 completed Malgorzata [place] [facility] 01/30/2024 11:17:06 pneumococcal polysaccharide PPV23 9 completed [place]gorz[place] [facility] 01/30/2024 11:17:06 Pneumococcal conjugate PCV 13 7 completed [place]gorz[place] [facility] 01/30/2024 11:17:06 Influenza, high-dose, trivalent, PF 4 completed [place] [facility] 01/30/2024 11:17:06 Influenza, high-dose, trivalent, PF 8 completed [place] [facility] 01/30/2024 11:17:06 Influenza, high-dose, trivalent, PF 7 completed Malgor[place] [facility] [...] [place] [facility] 10/10/2024 12:41:16 Tdap 5 completed Not Available [facility] 02/12/2025 17:16:27 Past Encounters Encounter ID Performer Location Encounter Start Date Encounter Closed Date Diagnosis/Indication Diagnosis SNOMED-CT Code Diagnosis ICD10 Code Diagnosis Note [id number] Karlie Cornell MD [facility] (Adult Med) [address] [place] [address] 10/30/2023 14:37:15 10/30/2023 15:51:57 Postmenopausal state 43030407 Z78.0 Hypothyroidism 75413546 E03.9 Hyperlipidemia 06428730 E78.5 Insomnia 750675338 G47.0 0 Gastroesop hageal reflux disease without esophagitis 336334363 K21.9 Inflammato ry bowel disease 55465465 K52.9 Ankylosing spondylitis 4103548 M45.9 [id number] Karlie Cornell MD [facility] [employer] [address] [place] [address] 01/22/2024 10:48:29 01/22/2024 11:30:35 Gastroesophageal reflux disease without esophagitis 332662214 K21.9 Hyperlipidemia 04585417 E78.5 Hypothyroidism 15429801 E03.9 Inflammato ry bowel disease 39581213 K52.9 [id number] Karlie Cornell MD [facility] [place] [address] [place] [address] 02/01/2024 11:28:20 02/01/2024 12:13:48 Adult health examination 219908441 Z00.00 Health Risk Assessment collected and reviewed [id number] Karlie Cornell MD [facility] [place] [address] [place] [address] 05/20/2024 10:52:06 05/20/2024 12:01:29 Hyperlipidemia 06907587 E78.5 Hypothyroidism 81841607 E03.9 Long-term drug therapy 620776884 Z79.891 Gastroesop hageal reflux disease without esophagitis 008485511 K21.9 Inflammato ry bowel disease 12516585 K52.9 Rheumatoid arthritis 698 84246 M06.9 [id number] Karlie Cornell MD [facility] [place] [address] [place] [address] 09/23/2024 10:41:56 09/23/2024 11:41:57 Body mass index 25-29 - overweight 739479279 Z68.28 Overweight 354589462 E66 .3 Gastroesop hageal reflux disease without esophagitis 935690789 K21.9 Hyperlipidemia 43195234 E78.5 Hypothyroidism 31581519 E03.9 Inflammato ry bowel disease 05903180 K52.9 Rheumatoid arthritis 698 76640 M06.9 [id number] Karlie Cornell MD [facility] [place] [address] [place] [address] 10/10/2024 12:18:02 10/10/2024 13:14:52 Body mass index 20-24 - normal 371860179 Z68.24 Bronchitis 07401950 J40 [id number] Karlie Cornell MD [facility] [place] [address] [place] [address] 01/13/2025 10:36:43 01/13/2025 11:44:06 Body mass index 20-24 - normal 120316964 Z68.23 Overweight 721122159 E66 .3 Chest pain 34568489 R07. 9 Hypothyroidism 15200415 E03.9 Gastroesop hageal reflux disease without esophagitis 349648371 K21.9 Hyperlipidemia 27801377 E78.5 Pain of left wrist [address]26[address] 42323 M25.194 [id number] Karlie Cornell MD [facility] [address] [place] [address] 02/12/2025 17:15:14 02/12/2025 17:46:20 Body mass index 20-24 - normal 824317933 Z68.23 Cellulitis of left lower limb 0513673269 8743560 L03.116 Health Concerns Section Related Observation LastModified by Organization Detai ls LastModified Time None Recorded Concern Status LastModified by Organization Details LastModified Time None Recorded Advance Directives Directive Y: Payers Insurance Date Sequence Insurance Name Policy Number Policy Morgan Covered Member ID Morgan Member ID Guarantor Name 02/12/2025 1 [facility] (MEDICARE REPLACEMENT/A DVANTAGE - HMO) [id number] Marnie Bonds [id number] Marnie Bonds Notes Date Note Type Note Provider Name and Address Organization Details Recorded Time 05/20/2024 text/html GERD no nausea vomiting or heartburn. Inflammatory bowel disease she is not having any bleeding but she always has twinges of pain. Hypothyroid no heat or cold intolerance dyslipidemia she is trying to follow a low-fat diet. Karlie Cornell MD Attn: [address] [place], [address], [facility] 05/25/2024 16:05:13 09/23/2024 text/html hyperlipidemia d oes try to follow a diet no side effects from medications. Hypothyroid no heat or cold intolerance at this time. Inflammatory bowel disease appears to be stable her rheumatoid arthritis is not having any flare-ups at this time GERD no nausea no vomiting Karlie Cornell MD Attn: [address] [place], [address], [facility] 09/23/2024 13:37:24 10/10/2024 text/html cough congestion went to an urgent care COVID and flu negative was not feeling any better and subsequently went back to an urgent care up here in [place] area her 1st 1 was in [place] given a steroid injection diagnosed with bronchitis and given a Medrol Dosepak and albuterol she continues with cough that is now yellow and she is not really wheezing short of breath but she is now having lots of yellow sputum Karlie Cornell MD Attn: [address] [facility], [place], [address], [place] [facility] 11/10/2024 18:06:28 OBGyn Episode No OBEpisode recorded.
== END 2025-02-13 09:17 | disposition home or self-care (01) ==
PROVIDERS: PCP Internal Medicine; Visit Provider Internal Medicine
DX: L03.116 Cellulitis of left lower limb (principal); M86.162 Other acute osteomyelitis, left tibia and fibula
CPT/HCPCS: 73590

== ENCOUNTER 2025-02-17 13:41 | Outpatient (CLI) | payer MEDICARE, SELFPAY ==
--- OUTSIDE RECORDS SUMMARY | 2025-02-17 13:51 | XMS_ITS | Continuity of Care Document ---
Author Organization [facility] Address [address] [place] [address] [address] [place] [address] Phone Care Team Providers Care Employment Educational Coord Name Role Phone Rico Rawls Unavailable Unavailable Advance Directives Directive Yes / No Effective Date File Name No Information Encounters Encounter Description Practice Location Reason(s) For Visit Diagnoses Date Provider Providers Copied on Encounter [facility], [id number] [place] [address] [address], [place], [place], [id number], [place] tel:[phone] [facility] [place] [facility] [place] No Information Dec-2 0-200 1 Tremainesy Edward. [address] [facility] , [address], [place], [address], [place]. tel:[phone] Family History Family Member Type Diagnosis Age At Onset No Information Payers Payer name Insurance type Covered democrat ID Authoriza tion(s) No Information Social History [...]
--- OUTSIDE RECORDS SUMMARY | 2025-02-17 13:52 | XMS_ITS | Data Portability ---
Author Organization [place] - [facility] Address [address] [facility] [place] [address] Care Team Providers Care Product Design Specialist Name Role Phone KARLIE CORNELL Primary Care [...] follow up with me in 4 months [email or web address] Not available 05/25/2024 16:04:54 09/23/2024 09/23/2024 healthy lifestyle care instructions we will continue current therapy diagnosis and assessment and plan have been discussed all questions answered follow up in 4 months [email or web address] Not available 09/23/2024 13:37:05 10/10/2024 10/10/2024 doxycycline 100 b.i.d. for 10 days she can continue to use the albuterol inhaler as needed she will push fluids and she will call if not improved [email or web address] Not available 11/10/2024 18:06:11 02/12/2025 02/12/2025 X-ray the distal tibia fibula since metal screw was involved in the trauma. We will start Bactrim DS b.i.d. she will let us know in about 4 days by phone how she is doing. Patient is a registered nurse understands that I want her to take a magic marker and trace the rim of erythema and call me sooner if it is worse also if she has fever chills or any new symptoms. If she would develop any new rash or mouth ulcers or any other problems while taking the new antibiotic she will also let me know Not available 02/15/2025 13:08:03 Plan of Treatment Reminders Order Date Submit Date Provider Last Modified By Organization Details Last Modified Time Details Appointments ANY 15 2024 10:30A M Karlie Cornell MD Not available Not available Not available Lab CBC w/ auto diff 2023 [facility] (Lab), [address] [place] [address], [id number], 05/23/2024 12:23:27 vitamin D, 25-hydrox y, total, serum 2023 [facility] (Lab), [address] [place] [address], [id number], 05/23/2024 12:23:19 T3, free, serum or plasma 2023 [facility] (Lab), [address] [place] [address], [id number], 05/23/2024 12:22:22 TSH, serum or plasma 2023 [facility] (Lab), [address] [place] [address], [address], 05/23/2024 12:23:02 T4, free, serum 2023 [facility] (Lab), [address] [place] [address], [id number], 05/23/2024 12:23:10 lipid panel, serum 2023 [facility] (Lab), [address] [place] [address], [address], 05/23/2024 12:22:44 CMP, serum or plasma 2023 [facility] (Lab), [address] [place] [address], [address], 05/23/2024 12:24:07 magnesium , serum or plasma 2023 024 [facility] (Lab), [address] [place] [address], [id number], 05/23/2024 12:23:45 Referral None recorded. Procedures None recorded. Surgeries None recorded. Imaging XR, tibia + fibula, 2 view 2024 025 [facility] (Imaging), [address] [place], [place] [address] [address] [place] [address], [id number], 02/17/2025 10:02:40 Medication Orders Bactrim DS 800 mg-160 mg tablet 2024 025 [email or web address] [facility] [address] [place], [address], 02/12/2025 18:00:47 doxycycli ne hyclate [address] [facility] [address] [place], [address], 01/13/2025 10:57:25 Patient TargetsNo targets recorded. Patient Instructions Encounter Date Encounter Id Patient Instructions Last Modified By Organization Details Last Modified Time 09/23/2024 [id number] A healthy lifestyle: care instructions [email or web address] Not available 09/23/2024 13:16:44 02/12/2025 [id number] A healthy lifestyle: care instructions [email or web address] Not available 02/12/2025 18:00:47 Reason for Referral None Reported. Results Created Date Observation Date Name Description Value Unit Range Abnormal Flag Note LastModifiedBy Organization Detail LastModifiedTime 01/14/2001/13/2025 XR, chest No observ ation record ed. [address], [address], 01/17/2025 17:07:35 01/14/20 25 01/13/2025 XR, wrist No observ ation record ed. [address], [address], 01/17/2025 17:07:35 01/14/20 25 01/13/2025 XR, wrist No observ ation record ed. [address], [place], [address], 01/17/2025 17:07:35 01/14/20 25 01/13/2025 XR, wrist No observ ation record ed. [address], [place], [address], 01/17/2025 17:07:36 01/14/20 25 01/13/2025 XR, chest No observ ation record ed. [email or web address] Not Available 2024 17:07:35 02/01/20 25 01/31/2025 anne can cardi olite stres s test (PROC ) No observ ation record ed. [address] [address], [place], [address], 02/06/2025 22:31:20 02/01/20 25 01/31/2025 anne can cardi olite stres s test (PROC ) No observ ation record ed. [address] [facility], [place], [address], 02/06/2025 22:31:21 02/01/20 25 01/31/2025 anne can cardi olite stres s test (PROC ) No observ ation record ed. [address], [place], [address], 02/06/2025 22:31:21 02/16/20 25 02/13/2025 XR, tibia + fibul a, 2 view No observ ation record ed. [address], [place], [address], 02/17/2025 10:02:24 Result Notes None recorded. Problems Name Problem SNOMED Code Status Onset Date Resolution Date Notes Provider Name and Address Organization Details Recorded Time Inflammator y bowel disease 99131241 Active 2023 Karlie Cornell MD Attn: Dewey clement,[address] [facility], [place], [address], [place] - [facility] 4 15:38:41 Gastroesoph ageal reflux disease without esophagitis 895182433 Active 2023 Karlie Cornell MD Attn: Dewey clement,[address] [facility], [place], [address], [place] [facility] 4 15:38:42 Hyperlipide franki 83448710 Active 2023 Karlie Cornell MD Attn: Dewey clement,[address] [facility], [place], [address], [place] [facility] 4 15:38:49 Hypothyroid ism 23995769 Active 2023 Frank Mata [place] null, [place] - [facility] 5 11:45:59 Postmenopau [place] 68810868 Active 2023 Karlie Cornell MD Attn: Dewey clement,[address] [facility], [place], [address], [place] [facility] 4 15:38:54 Rheumatoid arthritis 24567162 Active 2023 Karlie Cornell MD Attn: Luciaelvira clement,[address] [facility], [place], [address], [place] [facility] 4 16:04:08 Chest pain 69709536 Active 2024 Frank Mata [place], [place] [facility] 5 11:45:58 Pain of left wrist 7326992576533 02 Active 2024 Frank Mata [place], [place] [facility] 5 11:47:52 Problem Notes None recorded. Procedures Surgical History Date Name Laterality Status Provider Name and Address Organization Details Recorded Time Appendectomy completed KISHOR Marino - [facility] 10/30/2023 15:06:00 Eye Surgery completed KISHOR Marino - [facility] 10/30/2023 15:06:06 Joint Replacement completed KISHOR Langston [place] 10/30/2023 15:06:12 Tubal Ligation [place] 10/30/2023 15:06:23 Total hysterectomy [place]OR [place] 10/30/2023 15:06:30 Imaging Results None [...] Updated DateTime 5 160.66 cm 28.1 kg/m2 63042.7 g 62 /min 97 % 97 % 132/68 mm[Hg] Rose Henriquez MA [facility] 5 11:05:13 Date Recorded Body height Body mass index (BMI) Body weight Heart rate Oxygen saturation Oxygen saturation in Arterial blood by Pulse oximetry Systolic And Diastolic Provider Name and Address Organization Details Last Updated DateTime 5 160.66 cm 24 kg/m2 40863.7 2 g 68 /min 99 % 99 % 126/70 mm[Hg] Don Mast MA [facility] 5 12:43:14 Date Recorded Body height Body mass index (BMI) Body weight Heart rate Oxygen saturation Oxygen saturation in Arterial blood by Pulse oximetry Systolic And Diastolic Provider Name and Address Organization Details Last Updated DateTime 5 160.66 cm 23.8 kg/m2 77071.6 9 g 77 /min 98 % 98 % 130/80 mm[Hg] Liliya Lofton MA [facility] 5 10:53:25 Date Recorded Body height Body mass index (BMI) Body weight Heart rate Oxygen saturation Oxygen saturation in Arterial blood by Pulse oximetry Systolic And Diastolic Provider Name and Address Organization Details Last Updated DateTime 5 160.66 cm 23.9 kg/m2 78732.2 8 g 69 /min 98 % 98 % 150/90 mm[Hg] Liliya Lofton [facility] 5 17:20:51 Date Recorded Body height Body mass index (BMI) Body weight Heart rate Oxygen saturation Oxygen saturation in Arterial blood by Pulse oximetry Systolic And Diastolic Provider Name and Address Organization Details Last Updated DateTime 4 160.66 cm 24.7 kg/m2 72476.3 7 g 68 /min 95 % 95 % 128/64 mm[Hg] Rose Henriquez MA [facility] 4 11:15:29 Social History Question Answer Notes LastModified by Organizat ion Details LastModified Time Tobacco Smoking Status Never Smoker Gilda Rose, RMA null, [place] 10/30/2023 15:05:49 Do You Have [...] 7 Days, How Much Pain Have You Guffey? Some Information not available 02/01/2024 In General, [...] Past 7 Days, How Often Have You Guffey Sleepy In The Daytime? Sometimes Information not [...] anxious, or unable to sleep at night)? [id number] Information not available 02/01/2024 Family History Relationship [...] Influenza, recombinant, quadrivalent, PF 0 completed Malgorzata [place]ermit [place] [facility] 01/30/2024 11:17:06 zoster recombinant 0 completed [place] [facility] 01/30/2024 11:17:06 zoster recombinant 9 completed [place] [facility] 01/30/2024 11:17:06 Influenza, high-dose, quadrivalent, PF 3 completed Malgorzata [place] [facility] 01/30/2024 11:17:06 Influenza, high-dose, quadrivalent, PF 2 completed [place] [facility] 01/30/2024 11:17:06 Influenza, high-dose, quadrivalent, PF 1 completed [place] [facility] 01/30/2024 11:17:06 COVID-19, mRNA, LNP-S, PF, 100 mcg/0.5mL dose or 50 mcg/0.25mL dose 1 completed [place] [facility] [...] or 50 mcg/0.25mL dose 1 completed [place] [facility] 01/30/2024 11:17:06 COVID-19, mRNA, LNP-S, bivalent, PF, 50 mcg/0.5 mL or 25mcg/0.25 mL dose 2 completed [place] [facility] 01/30/2024 11:17:06 COVID-19, mRNA, LNP-S, PF, 50 mcg/0.5 mL 3 completed [place] [facility] 01/30/2024 11:17:06 pneumococcal polysaccharide PPV23 9 completed [place] [facility] 01/30/2024 11:17:06 Pneumococcal conjugate PCV 13 7 completed [place] [facility] 01/30/2024 11:17:06 Influenza, high-dose, trivalent, PF 4 completed [place] [facility] 01/30/2024 11:17:06 Influenza, high-dose, trivalent, PF 8 completed [place] [facility] 01/30/2024 11:17:06 Influenza, high-dose, trivalent, PF 7 completed [place] [facility] 01/30/2024 11:17:06 Influenza, high-dose, trivalent, PF 3 completed [place] [facility] 01/30/2024 11:17:06 Influenza, high-dose, trivalent, PF 5 completed [place] [facility] 01/30/2024 11:17:06 Influenza, split virus, quadrivalent, PF 9 completed [place] [facility] 01/30/2024 11:17:06 COVID-19, mRNA, LNP-S, PF, 50 mcg/0.5 mL 4 completed Don Mast [place] [facility] 10/10/2024 12:41:16 Influenza, high-dose, trivalent, PF 4 completed Don Mast [place] [facility] 10/10/2024 12:41:16 Tdap 5 completed Not Available [facility] 02/12/2025 17:16:27 Past Encounters Encounter ID Performer Location Encounter Start Date Encounter Closed Date Diagnosis/Indication Diagnosis SNOMED-CT Code Diagnosis ICD10 Code Diagnosis Note [id number] Karlie Cornell MD [facility] ([facility]ult [facility]) [address] [place] [address] 10/30/2023 14:37:15 10/30/2023 15:51:57 Postmenopausal state 43927689 Z78.0 Hypothyroidism 52261377 E03.9 Hyperlipidemia 08490089 E78.5 Insomnia 275273236 G47.0 0 Gastroesop hageal reflux disease without esophagitis 008597440 K21.9 Inflammato ry bowel disease 37487329 K52.9 Ankylosing spondylitis 5577744 M45.9 [id number] Karlie Cornell MD [facility] [employer] [facility] [place] [address] [place] [address] 01/22/2024 10:48:29 01/22/2024 11:30:35 Gastroesophageal reflux disease without esophagitis 690194585 K21.9 Hyperlipidemia 86841793 E78.5 Hypothyroidism 39319001 E03.9 Inflammato ry bowel disease 44567051 K52.9 [id number] Karlie Cornell MD [facility] [employer] [facility] [place] [address] [place] [address] 02/01/2024 11:28:20 02/01/2024 12:13:48 Adult health examination 872386531 Z00.00 Health Risk Assessment collected and reviewed [id number] Karlie Cornell MD [facility] [employer] [facility] [place] [address] [place] [address] 05/20/2024 10:52:06 05/20/2024 12:01:29 Hyperlipidemia 63503989 E78.5 Hypothyroidism 49343500 E03.9 Long-term drug therapy 675677731 Z79.891 Gastroesop hageal reflux disease without esophagitis 582677976 K21.9 Inflammato ry bowel disease 18770989 K52.9 Rheumatoid arthritis 698 73373 M06.9 [id number] Karlie Cornell MD [facility] [employer] [facility] [place] [address] [place] [address] 09/23/2024 10:41:56 09/23/2024 11:41:57 Body mass index 25-29 - overweight 505152923 Z68.28 Overweight 941783776 E66 .3 Gastroesop hageal reflux disease without esophagitis 647602477 K21.9 Hyperlipidemia 97406904 E78.5 Hypothyroidism 16261005 E03.9 Inflammato ry bowel disease 07151720 K52.9 Rheumatoid arthritis 698 42479 M06.9 [id number] Karlie Cornell MD [facility] [employer] [facility] [place] [address] [place] [address] 10/10/2024 12:18:02 10/10/2024 13:14:52 Body mass index 20-24 - normal 283513658 Z68.24 Bronchitis 89708404 J40 [id number] Karlie Cornell MD [facility] [employer] [facility] [place] [address] [place] [address] 01/13/2025 10:36:43 01/13/2025 11:44:06 Body mass index 20-24 - normal 487928009 Z68.23 Overweight 018809410 E66 .3 Chest pain 77932040 R07. 9 Hypothyroidism 50309069 E03.9 Gastroesop hageal reflux disease without esophagitis 438154153 K21.9 Hyperlipidemia 84943429 E78.5 Pain of left wrist 24676 23743 51931 M25.604 [id number] Karlie Cornell MD [facility] [address] [place] [address] 02/12/2025 17:15:14 02/12/2025 17:46:20 Body mass index 20-24 - normal 240807785 Z68.23 Cellulitis of left lower limb 7907074353 2724632 L03.116 Health Concerns Section Related Observation LastModified by Organization Detai ls LastModified Time None Recorded Concern Status LastModified by Organization Details LastModified Time None Recorded Advance Directives Directive Y: Payers Insurance Date Sequence Insurance Name Policy Number Policy Morgan Covered Member ID Morgan Member ID Guarantor Name 02/12/[address] [facility] (MEDICARE REPLACEMENT/A DVANTAGE - HMO) [id number] Marnie Bonds [id number] Marnie Bonds Notes Date Note Type Note Provider Name and Address Organization Details Recorded Time 05/20/2024 text/html GERD no nausea vomiting or heartburn. Inflammatory bowel disease she is not having any bleeding but she always has twinges of pain. Hypothyroid no heat or cold intolerance dyslipidemia she is trying to follow a low-fat diet. Karlie Cornell MD Attn: Accounting, [address] [place], [address], [facility] - [facility] 05/25/2024 16:05:13 09/23/2024 text/html hyperlipidemia d oes try to follow a diet no side effects from medications. Hypothyroid no heat or cold intolerance at this time. Inflammatory bowel disease appears to be stable her rheumatoid arthritis is not having any flare-ups at this time GERD no nausea no vomiting Karlie Cornell MD Attn: Accounting, [address] [facility], [place], [address], [place] [facility] 09/23/2024 13:37:24 10/10/2024 text/html cough congestion went to an urgent care COVID and flu negative was not feeling any better and subsequently went back to an urgent care up here in [place] area her 1st 1 was in [place] given a steroid injection diagnosed with bronchitis and given a Medrol Dosepak and albuterol she continues with cough that is now yellow and she is not really wheezing short of breath but she is now having lots of yellow sputum Karlie Cornell MD Attn: Accounting, [address] [place], [address], [place] [facility] 11/10/2024 18:06:28 02/12/2025 text/html She cut her left lower leg on a metal screw a couple of weeks ago she was Steri-Strips on it and it just kind of got worse and she wound up getting Keflex and an urgent care center a week or so ago but it is not healing getting a little bit more red getting a little bit more tender there has no constitutional symptoms no fever chills she has had no chest pain or shortness of breath no fatigue Karlie Cornell MD Attn: Accounting[address] [place], [address], [facility] - [facility] 02/15/2025 13:08:25 OBGyn Episode No OBEpisode recorded.
--- OUTSIDE RECORDS SUMMARY | 2025-02-17 13:52 | XMS_ITS | Clinical Summary ---
Author Organization [facility] [employer] Address [address] [facility] [place] [address] Care Team Providers Care Exchange Underwriting Consultant Name Role Phone Dalton De Leon MD Unavailable [phone] Nazario Cornell MD Primary Care Provider [phone] Source Comments [facility] [employer],non-owned Affiliates and Associated Physician Practices is amultiple site organization consisting of ambulatory clinics and hospital sitesin [place], [place], [place] and [place]. This disclosure is being madepursuant to the Care Everywhere program and may not contain all information available regarding this patient. 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 Gender Identity Not on file Sexual Orientation [...] this topic Medical Devices Implanted Type Area Reshipping Clerk Device Identifier Shelf Expiration Date Model / Serial / Lot Cmnt Bone Cblt 40gm Hvisc Strl Implanted:Qty: 1 on 11/12/2018 by Hu Coy MD at [facility] [employer] 02/07/2020 [id number] / / [id number] Cmpnt Ptlr 28mm 1 Pg Wire Ascnt Arcm Kn Implanted:Qty: 1 on 11/12/2018 by Hu Coy MD at [facility] [employer] 11/07/2023 [id number] / / [id number] Tray Tib 63mm Kn Cocr I Beam Implanted:Qty: 1 on 11/12/2018 by Hu Coy MD at [facility] [employer] 06/15/2028 [id number] / / [id number] Cmpnt Fem Kn Rt Cr Cmnt Prm Vngrd Intlk 60mm Implanted:Qty: 1 on 11/12/2018 by Hu Coy MD at [facility] [employer] 10/01/2028 [id number] / / [id number] As Tibial Bearing 10mm X 63mm Implanted:Qty: 1 on 11/12/2018 by Hu Coy MD at [facility] [employer] 06/14/2022 [id number] / / [id number] Insurance [facility] MANAGED MEDICARE ADV Advance Directives * Full Code (Latest Code Status on File) Date Activated Date Inactivated Comments 11/12/2018 4:31 PM 11/14/2018 12:55 PM Care Teams Exchange Underwriting Consultant Relationship Specialty Start Date End Date Nazario Cornell MD [address] [facility] [address] [place] [address] PCP - General Internal Medicine 07/27/20 Dalton De Leon MD [address] [facility] [address] [place] [address] Internal Medicine 12/16/11
[2025-02-17 14:47] LABS: Hematocrit 35.4 % (37.0-47.0); Hemoglobin 11.5 g/dL (12.0-15.0); Mean Corpuscular HGB Conc 32.5 g/dl (32-36); Mean Corpuscular Hemoglobin 28.9 pg (26-34); Mean Corpuscular Volume 88.9 fl (80-100); Platelet Count Result 226 k/mm3 (150-375); Red Blood Count 3.98 M/mm3 (4.2-5.4); White Blood Count 10.3 K/mm3 (4.5-10.0)
[2025-02-17 14:58] LABS: Alanine Aminotransferase 20 U/L (6-35); Albumin Level 4.5 g/dL (3.5-5.1); Alkaline Phosphatase 45 U/L (38-126); Anion Gap 9 mmol/L (4-12); Aspartate Amino Transferase 32 U/L (14-36); Bilirubin,Total 0.2 mg/dL (0.2-1.3); Blood Urea Nitrogen 27 mg/dL (7-17); Calcium 10.3 mg/dL (8.4-10.2); Carbon Dioxide 26 mmol/L (22-30); Chloride 97 mmol/L (98-107); Estimated Glomerular Filt Rate 23; Glucose 107 mg/dL (65-110); Potassium 3.9 mmol/L (3.4-5.0); Sodium 132 mmol/L (137-145); Total Protein 7.0 g/dL (6.3-8.2)
[2025-02-17 15:25] LABS: CRP < 0.5 mg/dL (<1.0)
[2025-02-17 15:27] LABS: Free T4 Free Thyroxine 1.56 ng/dL (0.78-2.19)
[2025-02-17 15:29] LABS: Thyroid Stimulating Hormone 1.530 uIU/mL (0.465-4.680); Total Triiodothyronine (T3) 0.65 NG/ML (0.82-1.58)
== END 2025-02-17 13:42 | disposition home or self-care (01) ==
PROVIDERS: PCP Internal Medicine; Visit Provider Internal Medicine
DX: E03.9 Hypothyroidism, unspecified (principal); M86.9 Osteomyelitis, unspecified
CPT/HCPCS: 36415; 80053; 82672; 84439; 84443; 84480; 85027; 86140; 87040

== ENCOUNTER 2025-02-26 16:38 | Inpatient (IN) | payer MEDICARE, SELFPAY ==
[2025-02-26] VITALS (8 sets, daily range): BP systolic 174–200; BP diastolic 57–140; PULSE 65–99; RESP 14–18; TEMP 36.2–36.6; O2SAT 98–100; BMI 23.8
--- NOTE | ~2025-02-26 | XR_ITS ---
XR tibia fibula LT 2V Ordering provider: Meghan Kevin MD History: . RULE OUT OSTEOMYELITIS . Comparison: February 13 2025 FINDINGS: BONES: No acute fracture or dislocation. JOINT SPACES: Total knee arthroplasty. SOFT TISSUES: Normal. IMPRESSION: No acute osseous abnormality left leg. Total knee arthroplasty. Reviewed, dictated and finalized at location A.
--- OUTSIDE RECORDS SUMMARY | 2025-02-26 16:40 | XMS_ITS | Data Portability ---
Author Organization [facility] Address [address] [address] Care Team Providers Care Auto Radio Mechanic Name Role Phone KARLIE CORNELL Primary Care Provider EDWIN Bkaer OTHER Assessment Encounter Date Assessment Date Assessment LastModified by Organization Details LastModified Time 09/23/2024 09/23/2024 healthy lifestyle care instructions we will continue current therapy diagnosis and assessment and plan have been discussed all questions answered follow up in 4 months [email or web address] Not available 09/23/2024 13:37:05 10/10/2024 10/10/2024 doxycycline 100 b.i.d. for 10 days she can continue to use the albuterol inhaler as needed she will push fluids and she will call if not improved [email or web address] Not available 11/10/2024 18:06:11 01/13/2025 01/13/2025 Chest x-ray Lexiscan stress EKG shows a sinus rhythm with a PVC but does not appear to have anything acute we will monitor the ganglion she will follow up in 3 months further results pending results of testing chest symptoms worsened ER Not available 02/18/2025 23:05:20 02/12/2025 02/12/2025 X-ray the distal tibia fibula [...] antibiotic she will also let me know [email or web address] Not available 02/15/2025 13:08:03 Plan of Treatment Reminders Order Date Submit Date Provider Last Modified By Organization Details Last Modified Time Details Appointments ANY 15 2024 01:15P Mundo Cornell MD Not available Not available Not available ANY 15 2024 10:30A Mundo Cornell MD Not available Not available Not available Lab CBC w/ auto diff [address] [place] [address] (Lab), [address] [place] [address] [address], [place], [address], 01/15/2025 12:51:14 lipid panel, serum [address] [place] [address] (Lab), [address] [place] [address] [address], [address], 01/15/2025 12:51:14 CMP, serum or plasma [address] [place] [address] (Lab), [address] [place] [address] [address], [address], 01/15/2025 12:51:14 T3, free, serum or plasma [address] [place] [address] Outpatient Registration Lab/Ekg, [address] [place] [address] [address], [address], 02/26/2025 14:20:08 TSH + free T4, serum [address] [place] [address] Outpatient Registration Lab/Ekg, [address] [place] [address] [address], [place], [address], 02/26/2025 14:19:54 Referral None recorded. Procedures lexiscan cardiolit e stress test (PROC) [address] [place] [address] (Cardiology & Emg), [address] [place] [address] [address], [place], [address], 01/31/2025 13:28:08 Surgeries None recorded. Imaging XR, tibia + fibula, 2 view 2024 025 [facility] (Imaging), [address] [place] [address], [address], 02/17/2025 10:02:40 XR, chest 2024 025 [facility] (Imaging), [address] [place] [address], [address], 01/13/2025 13:07:15 XR, wrist 2024 025 [facility] (Imaging), [address] [place] [address], [address], 01/13/2025 13:09:54 Medication Orders Bactrim DS 800 mg-160 mg tablet [address] [facility] [address] [place], [address], 02/26/2025 14:26:15 doxycycli ne hyclate 100 mg capsule [address] [facility] [address] [place], [address], 01/13/2025 10:57:25 Patient TargetsNo targets recorded. Patient Instructions Encounter Date Encounter Id Patient Instructions Last Modified By Organization Details Last Modified Time 09/23/2024 [id number] A healthy lifestyle: care instructions [email or web address] Not available 09/23/2024 13:16:44 01/13/2025 [id number] A healthy lifestyle: care instructions [email or web address] Not available 01/13/2025 12:33:06 02/12/2025 [id number] A healthy lifestyle: care instructions Not available 02/12/2025 18:00:47 Reason for Referral None Reported. Results Created Date Observation Date Name Description Value Unit Range Abnormal Flag Note LastModifiedBy Organization Detail LastModifiedTime 01/14/2001/13/2025 XR, chest No observ ation record ed. [address] [place], [address], 01/17/2025 17:07:35 01/14/20 25 01/13/2025 XR, wrist No observ ation record ed. [address], [place], [address], 01/17/2025 17:07:35 01/14/20 25 01/13/2025 XR, wrist No observ ation record ed. [address] [address], [place], [address], 01/17/2025 17:07:35 01/14/20 25 01/13/2025 XR, wrist No observ ation record ed. [address] [address], [place], [address], 01/17/2025 17:07:36 01/14/20 25 01/13/2025 XR, chest No observ ation record ed. [email or web address] Not Available 2024 17:07:35 02/01/20 25 01/31/2025 anne can cardi olite stres s test (PROC ) No observ ation record ed. [address] [address], [place], [address], 02/06/2025 22:31:20 02/01/20 25 01/31/2025 anne can cardi olite stres s test (PROC ) No observ ation record ed. [address] [address], [place], [address], 02/06/2025 22:31:21 02/01/20 25 01/31/2025 anne can cardi olite stres s test (PROC ) No observ ation record ed. [address] [address], [place], [address], 02/06/2025 22:31:21 02/16/20 25 02/13/2025 XR, tibia + fibul a, 2 view No observ ation record ed. [address] [address], [place], [address], 02/17/2025 10:02:24 Result Notes None recorded. Problems Name Problem SNOMED Code Status Onset Date Resolution Date Notes Provider Name and Address Organization Details Recorded Time Inflammator y bowel disease 41400330 Active 2023 Karlie Cornell MD Attn: Dewey racquel,[address] [facility], [place], [address], [place] - [facility] 4 15:38:41 Gastroesoph ageal reflux disease without esophagitis 499288227 Active 2023 Karlie Cornell MD Attn: Dewey g,[address] [facility], [place], [address], [place] [facility] 4 15:38:42 Hyperlipide franki 48288309 Active 2023 Karlie Cornell MD Attn: Dewey clement,[address] [facility], [place], [address], [place] [facility] 4 15:38:49 Hypothyroid ism 31829798 Active 2023 Frank Mata [place] null, [place] [facility] 5 11:45:59 Postmenopau [place] 48920065 Active 2023 Karlie Cornell MD Attn: Dewey clement,[address] [facility], [place], [address], [place] [facility] 4 15:38:54 Rheumatoid arthritis 51462809 Active 2023 Karlie Cornell MD Attn: Dewey clement,[address] [facility], [place], [address], [place] [facility] 4 16:04:08 Chest pain 34752160 Active 2024 Frank Mata [place] [facility] 5 11:45:58 Pain of left wrist 6177972738997 02 Active 2024 Frank Mata [place] [facility] 5 11:47:52 Problem Notes None recorded. Procedures Surgical History Date Name Laterality Status Provider Name and Address Organization Details Recorded Time Appendectomy completed KISHOR Marino [facility] 10/30/2023 15:06:00 Eye Surgery completed Gilda Rose [place] Kaitlyn [facility] 10/30/2023 15:06:06 Joint Replacement completed Demario Rose [facility] 10/30/2023 15:06:12 Tubal Ligation completed Gilda Rose [facility] Kaitlyn [facility] 10/30/2023 15:06:23 Total hysterectomy completed Gilda Rose [facility] 10/30/2023 15:06:30 Imaging Results None recorded. Procedure [...] completed Not Available Not Available Not Available sulfamethox azole 800 mg-trimetho prim 160 mg tablet TAKE 1 TABLET BY MOUTH TWICE DAILY FOR 10 DAYS 02/26 completed Not Available Not Available Not Available [...] TAKE 1 TO 3 CAPSULES BY MOUTH DAILY AT BEDTIME FOR BETTER SLEEP active Not Available Not Available No t [...] Updated DateTime 5 160.66 cm 28.1 kg/m2 58099.7 g 62 /min 97 % 97 % 132/68 mm[Hg] Rose Henriquez MA [facility] 5 11:05:13 Date Recorded Body height Body mass index (BMI) Body weight Heart rate Oxygen saturation Oxygen saturation in Arterial blood by Pulse oximetry Systolic And Diastolic Provider Name and Address Organization Details Last Updated DateTime 5 160.66 cm 24 kg/m2 04710.7 2 g 68 /min 99 % 99 % 126/70 mm[Hg] Don Mast MA [facility] 5 12:43:14 Date Recorded Body height Body mass index (BMI) Body weight Heart rate Oxygen saturation Oxygen saturation in Arterial blood by Pulse oximetry Systolic And Diastolic Provider Name and Address Organization Details Last Updated DateTime 5 160.66 cm 23.8 kg/m2 64931.6 9 g 77 /min 98 % 98 % 130/80 mm[Hg] Liliya Lofton [facility] 5 10:53:25 Date Recorded Body height Body mass index (BMI) Body weight Heart rate Oxygen saturation Oxygen saturation in Arterial blood by Pulse oximetry Systolic And Diastolic Provider Name and Address Organization Details Last Updated DateTime 5 160.66 cm 23.9 kg/m2 20373.2 8 g 69 /min 98 % 98 % 150/90 mm[Hg] Liliya Lofton [facility] 5 17:20:51 Date Recorded Body height Body mass index (BMI) Body weight Heart rate Oxygen saturation Oxygen saturation in Arterial blood by Pulse oximetry Systolic And Diastolic Provider Name and Address Organization Details Last Updated DateTime 5 160.66 cm 23.6 kg/m2 96019.8 1 g 58 /min 100 % 100 % 148/80 mm[Hg] Liliya Lofton [place] - [facility] 5 14:23:14 Social History Question Answer Notes LastModified by Organizat ion Details LastModified Time Tobacco Smoking Status Never Smoker Gilda Rose, KISHOR null, [place] - [place] 10/30/2023 15:05:49 Do You Have [...] 7 Days, How Much Pain Have You [place]? Some Information not available 02/01/2024 In General, [...] Past 7 Days, How Often Have You [place] Sleepy In The Daytime? Sometimes Information not available 02/01/2024 # Alcohol Drinks Per Week 0 Information not available 02/01/2024 What Was The Date Of Your Most Recent Tobacco Screening? 02/26/2025 Non Smoker [email or web address] Information not available 02/26/2025 What Is Your Relationship Status? Information not [...] anxious, or unable to sleep at night)? [id number] Information not available 02/01/2024 Family History Relationship Description Onset Age of this Age Resolved Age Notes LastModified by Organization Details LastModified Time Mother Asthma [email or web address] Not availabl e 10/30/2023 15:05:05 Mother Osteoporosis [email or web address] Not av ailable 10/30/2023 15:05:36 Brother Dementia [email or web address] Not avail able 10/30/2023 15:05:15 Father Hypertensive disorder corinne Not available 10/12 15:05:27 Medical History Condition [...] Influenza, recombinant, quadrivalent, PF 0 completed Malgor[place] [facility] 01/30/2024 11:17:06 zoster recombinant 0 completed [place] [facility] 01/30/2024 11:17:06 zoster recombinant 9 completed [place] [facility] 01/30/2024 11:17:06 Influenza, high-dose, quadrivalent, PF 3 completed [place]gorz[place] [facility] 01/30/2024 11:17:06 Influenza, high-dose, quadrivalent, PF 2 completed [place] [facility] 01/30/2024 11:17:06 Influenza, high-dose, quadrivalent, PF 1 completed [place] [facility] 01/30/2024 11:17:06 COVID-19, mRNA, LNP-S, PF, 100 mcg/0.5mL dose or 50 mcg/0.25mL dose 1 completed [place]gor[place] [facility] 01/30/2024 11:17:06 COVID-19, mRNA, LNP-S, PF, 100 mcg/0.5mL dose or 50 mcg/0.25mL dose 1 completed [place] [facility] 01/30/2024 11:17:06 COVID-19, mRNA, LNP-S, PF, 100 mcg/0.5mL dose or 50 mcg/0.25mL dose 1 completed [place] [facility] 01/30/2024 11:17:06 COVID-19, mRNA, LNP-S, PF, 100 mcg/0.5mL dose or 50 mcg/0.25mL dose 1 completed [place] [facility] 01/30/2024 11:17:06 COVID-19, mRNA, LNP-S, PF, 100 mcg/0.5mL dose or 50 mcg/0.25mL dose 1 completed [place] [facility] 01/30/2024 11:17:06 COVID-19, mRNA, LNP-S, bivalent, PF, 50 mcg/0.5 mL or 25mcg/0.25 mL dose 2 completed [place] [facility] 01/30/2024 11:17:06 COVID-19, mRNA, LNP-S, PF, 50 mcg/0.5 mL 3 completed [place] [facility] 01/30/2024 11:17:06 pneumococcal polysaccharide PPV23 9 completed [place] [facility] 01/30/2024 11:17:06 Pneumococcal conjugate PCV 13 7 completed [place] [facility] 01/30/2024 11:17:06 Influenza, high-dose, trivalent, PF 4 completed [place] [facility] 01/30/2024 11:17:06 Influenza, high-dose, trivalent, PF 8 completed [place] [facility] 01/30/2024 11:17:06 Influenza, high-dose, trivalent, PF 7 completed [place] [facility] 01/30/2024 11:17:06 Influenza, high-dose, trivalent, PF 3 completed [place] [facility] 01/30/2024 11:17:06 Influenza, high-dose, trivalent, PF 5 completed [place] [facility] 01/30/2024 11:17:06 Influenza, split virus, quadrivalent, PF 9 completed [place] [facility] 01/30/2024 11:17:06 COVID-19, mRNA, LNP-S, PF, 50 mcg/0.5 mL 4 completed [place] Mast [place] [facility] 10/10/2024 12:41:16 Influenza, high-dose, trivalent, PF 4 completed [place] Mast [place] [facility] 10/10/2024 12:41:16 Tdap 5 completed Not Available [facility] 02/26/2025 14:01:55 Past Encounters Encounter ID Performer Location Encounter Start Date Encounter Closed Date Diagnosis/Indication Diagnosis SNOMED-CT Code Diagnosis ICD10 Code Diagnosis Note [id number] Karlie Cornell MD [facility] (Adult Med) [address] [place] [address] 10/30/2023 14:37:15 10/30/2023 15:51:57 Postmenopausal state 84066880 Z78.0 Hypothyroidism 49045006 E03.9 Hyperlipidemia 83726726 E78.5 Insomnia 712321475 G47.0 0 Gastroesop hageal reflux disease without esophagitis 456705618 K21.9 Inflammato ry bowel disease 10948585 K52.9 Ankylosing spondylitis 7565211 M45.9 [id number] Karlie Cornell MD [facility] [address] [place] [address] 01/22/2024 10:48:29 01/22/2024 11:30:35 Gastroesophageal reflux disease without esophagitis 636521331 K21.9 Hyperlipidemia 39307981 E78.5 Hypothyroidism 01095628 E03.9 Inflammato ry bowel disease 43746258 K52.9 [id number] Karlie Cornell MD [facility] [address] - [place] [address] [place] [address] 02/01/2024 11:28:20 02/01/2024 12:13:48 Adult health examination 244133043 Z00.00 Health Risk Assessment collected and reviewed [id number] Karlie Cornell MD [facility] Healthcar [facility] - [place] [address] [place] [address] 05/20/2024 10:52:06 05/20/2024 12:01:29 Hyperlipidemia 25356975 E78.5 Hypothyroidism 12833975 E03.9 Long-term drug therapy 112999509 Z79.891 Gastroesop hageal reflux disease without esophagitis 090507937 K21.9 Inflammato ry bowel disease 99820129 K52.9 Rheumatoid arthritis 698 66088 M06.9 [id number] Karlie Cornell MD [facility] Healthcar [facility] - [place] [address] [place] [address] 09/23/2024 10:41:56 09/23/2024 11:41:57 Body mass index 25-29 - overweight 228119725 Z68.28 Overweight 144557985 E66 .3 Gastroesop hageal reflux disease without esophagitis 621794796 K21.9 Hyperlipidemia 46002327 E78.5 Hypothyroidism 79391432 E03.9 Inflammato ry bowel disease 33810780 K52.9 Rheumatoid arthritis 698 21486 M06.9 [id number] Karlie Cornell MD [facility] - [place] [address] [place] [address] 10/10/2024 12:18:02 10/10/2024 13:14:52 Body mass index 20-24 - normal 191771281 Z68.24 Bronchitis 19387600 J40 [id number] Karlie Cornell MD [facility] Health[facility] - [place] [address] [place] [address] 01/13/2025 10:36:43 01/13/2025 11:44:06 Body mass index 20-24 - normal 838392036 Z68.23 Overweight 258455237 E66 .3 Chest pain 11746468 R07. 9 Hypothyroidism 34687769 E03.9 Gastroesop hageal reflux disease without esophagitis 958054390 K21.9 Hyperlipidemia 67828581 E78.5 Pain of left wrist 03390 17174 02412 M25.747 [id number] Karlie Cornell MD [facility] (Adult Med) [address] [place] [address] 02/12/2025 17:15:14 02/12/2025 17:46:20 Body mass index 20-24 - normal 680124233 Z68.23 Cellulitis of left lower limb 7840220591 1230545 L03.220 [id number] Karlie Cornell MD [facility] (Adult Med) [address] [place] [address] 02/26/2025 14:00:45 02/26/2025 15:59:56 Body mass index 20-24 - normal 716769262 Z68.23 Health Concerns Section Related Observation LastModified by Organization Detai ls LastModified Time None Recorded Concern Status LastModified by Organization Details LastModified Time None Recorded Advance Directives Directive Y: Payers Insurance Date Sequence Insurance Name Policy Number Policy Morgan Covered Member ID Morgan Member ID Guarantor Name 02/26/2025 1 [facility] (MEDICARE REPLACEMENT/A DVANTAGE - HMO) [id number] Marnie Bonds [id number] Marnie Bonds Notes Date Note Type Note Provider Name and Address Organization Details Recorded Time 09/23/2024 text/html hyperlipidemia d oes try to follow a diet no side effects from medications. Hypothyroid no heat or cold intolerance at this time. Inflammatory bowel disease appears to be stable her rheumatoid arthritis is not having any flare-ups at this time GERD no nausea no vomiting Karlie Cornell MD Attn: [address] [place], [address], [facility] - [place] 09/23/2024 13:37:24 10/10/2024 text/html cough congestion went to an urgent care COVID and flu negative was not feeling any better and subsequently went back to an urgent care up here in [place] area her 1st 1 was in [place] given a steroid injection diagnosed with bronchitis and given a Medrol Dosepak and albuterol she continues with cough that is now yellow and she is not really wheezing short of breath but she is now having lots of yellow sputum Karlie Cornell MD Attn: [address] [place], [address], [facility] - [place] 11/10/2024 18:06:28 01/13/2025 text/html 1. Atypical ches t pain. Pain left wrist for few weeks with no loss of function dyslipidemia needs labs has a history of GERD I believe an esophageal stricture as well hypothyroid she is always going to energy problems manifested by some fatigue Karlie Cornell MD Attn: Accounting[address] [facility], [place], [address], [facility] 02/18/2025 23:05:38 02/12/2025 text/html She cut her left lower [...] breath no fatigue Karlie Cornell MD Attn: Accounting, [address] [facility], [place], [address], [facility] 02/15/2025 13:08:25 OBGyn Episode No OBEpisode recorded.
--- OUTSIDE RECORDS SUMMARY | 2025-02-26 16:40 | XMS_ITS | Continuity of Care Document ---
Author Organization [facility] Address [address] [place] [address] [address] [place] [address] Phone Care Team Providers Care On Air Personality Name Role Phone Rico Rawls Unavailable Unavailable Advance Directives Directive Yes / No Effective Date File Name No Information Encounters Encounter Description Practice Location Reason(s) For Visit Diagnoses Date Provider Providers Copied on Encounter [facility], [id number] [place] [address] [address], [place], [place], [id number], [place] tel:[phone] [facility] No Information Dec-2 0-200 1 Tremainesy Edward. [address] [facility] , [address], [place], [address], [place]. tel:[phone] Family History Family Member Type Diagnosis Age [...]
--- OUTSIDE RECORDS SUMMARY | 2025-02-26 16:40 | XMS_ITS | Clinical Summary ---
Author Organization [facility] [employer] Address [address] [facility] [place] [address] Care Team Providers Care Account Strategist Name Role Phone Dalton De Leon MD Unavailable Nazario Cornell MD Primary Care Provider [phone] Source Comments [facility] [employer],non-owned Affiliates and Associated Physician Practices is amultiple site organization consisting of ambulatory clinics and hospital sitesin [place], [place], [place] and [place]. This disclosure is being madepursuant to the Care Everywhere program and may not contain all information available regarding this patient. 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 Gender Identity Not on file Sexual Orientation [...] MEDICARE AWV CALENDAR YEAR 2024 INFLUENZA VACCINE (#1) 2025 HEPATITIS B VACCINE Aged Out No [...] this topic Medical Devices Implanted Type Area Dealer Account Manager Device Identifier Shelf Expiration Date Model / Serial / Lot Cmnt Bone Cblt 40gm Hvisc Strl Implanted:Qty: 1 on 11/12/2018 by Hu Coy MD at [facility] [employer] 02/07/2020 [id number] 0 / / [id number] Cmpnt Ptlr 28mm 1 Pg Wire Ascnt Arcm Kn Implanted:Qty: 1 on 11/12/2018 by Hu Coy MD at [facility] Knee [employer] 11/07/2023 [id number] / / [id number] Tray Tib 63mm Kn Cocr I Beam Implanted:Qty: 1 on 11/12/2018 by Hu Coy MD at [facility] [employer] 06/15/2028 [id number] / / [id number] Cmpnt Fem Kn Rt Cr Cmnt Prm Vngrd Intlk 60mm Implanted:Qty: 1 on 11/12/2018 by Hu Coy MD at [facility] [employer] 10/01/2028 [id number] / / [id number] As Tibial Bearing 10mm X 63mm Implanted:Qty: 1 on 11/12/2018 by Hu Coy MD at [facility] [employer] 06/14/2022 [id number] / / [id number] Insurance [facility] MANAGED MEDICARE ADV Advance Directives * Full Code (Latest Code Status on File) Date Activated Date Inactivated Comments 11/12/2018 4:31 PM 11/14/2018 12:55 PM Care Teams Account Strategist Relationship Specialty Start Date End Date Nazario Cornell MD [address] [employer] [address] [place] [address] PCP - General Internal Medicine 07/27/20 Dalton De Leon MD [address] [employer] [place] [address] Internal Medicine 12/16/11
--- NOTE | 2025-02-26 18:32 | ED.WOUNDLAC ---
HPI - Wound/Laceration General Chief Complaint: Wound/Laceration Stated Complaint: non healing wound Time Seen by Provider: 02/26/25 18:41 Source: patient Mode of arrival: ambulatory Limitations: no limitations History of Present Illness HPI narrative: 84 YEARS OLD WHITE FEMALE REFERRED TO THE EMERGENCY ROOM BY HER FAMILY PHYSICIAN FOR CHRONIC LEFT LOWER LEG WOUND FOR THE LAST 5 WEEKS, PATIENT IS TELLING ME THAT SHE HAD SCRATCH BY SCREWS 5 WEEKS AGO SUBSEQUENTLY FINISH A COURSE OF CEPHALIC SEEN WITHOUT IMPROVEMENT, THEN A COURSE OF BACTRIM WITHOUT IMPROVEMENT, WAS SEEN BY HER FAMILY PHYSICIAN WHO REFERRED HER TO US FOR IV ANTIBIOTIC AND ADMISSION AND POSSIBLE PLASTIC SURGERY CONSULT PATIENT DENIES ANY FEVER, CHILLS, NAUSEA, VOMITING. HISTORY OF HYPERTENSION, HYPERLIPIDEMIA, HYPOTHYROIDISM MYASTHENIA GRAVIS, INFLAMMATORY BOWEL DISEASE, RAYNAUD'S PHENOMENA, LEFT KNEE REPLACEMENT 2021. Related Data Home Medications ?Medication ?Instructions ?Recorded ?Confirmed ?Last Taken ?Type atorvastatin 10 mg tablet 10 mg PO DAILY 06/21/19 02/26/25 1 Day Ago History ~05/24/22 nifedipine 30 mg tablet,extended 30 mg PO DAILY 06/21/19 02/26/25 05/25/22 History release 24 hr levothyroxine 100 mcg tablet 75 mcg PO DAILY 04/09/20 02/26/25 05/25/22 History multivit with minerals-iron 18 1 tablet PO DAILY 04/09/20 02/26/25 1 Day Ago History mg-folic ac 400 mcg-vit K 25 mcg ~05/24/22 tablet (Adults Multivitamin) zolpidem 10 mg tablet 10 mg PO HS PRN Insomnia 04/09/20 02/26/25 04/21/20 History tramadol 50 mg tablet (Ultram) 50 mg PO TID PRN Pain, Moderate 05/12/22 02/26/25 Unknown History gabapentin 300 mg capsule 300 mg PO BID 03/21/24 02/26/25 Unknown History tofacitinib 5 mg tablet (Xeljanz) 5 mg PO DAILY 03/21/24 02/26/25 Unknown History prednisone 2.5 mg tablet 5 mg PO DAILY 02/01/25 02/26/25 Unknown History terbinafine HCl 250 mg tablet 250 mg PO DAILY 02/01/25 02/26/25 Unknown History cephalexin 250 mg capsule 250 mg PO HS 02/26/25 02/26/25 02/25/25 History omeprazole 40 mg capsule,delayed 40 mg PO PRN PRN GERD 02/26/25 02/26/25 Unknown History release Allergies Allergy/AdvReac Type Severity Reaction Status Date / Time No Known Allergies Allergy Verified 02/01/25 09:05 Review of Systems Review of Systems: All systems reviewed & are unremarkable except as noted in HPI and below PMFSH Past Medical History Medical History Rectal bleeding Microscopic colitis Rheumatoid arthritis Colitis Hiatal hernia Appetite loss Abdominal tenderness Bloating Early satiety Nausea and vomiting Arthritis Hyperlipidemia Hypertension Ulcerative colitis Diarrhea Rash GERD (gastroesophageal reflux disease) Surgical History Surgical History Hx of knee surgery Family History Family History Mother Family history of osteoporosis Family history of arthritis Father Hypertension Sibling Family history of Parkinson's disease Social History Social History Smoking status: Never smoker Second hand tobacco smoke exposure: No Alcohol intake: never Substance use: never Substance use type: does not use Do You Feel Safe in your Home?: Yes Lack of Transportation: No Lack of Food: Never True Current Housing: I Have Housing Concerned About Future Housing: No Difficulty Paying Gas/Electric Bills: No Difficulty Paying for Meds: No Currently Unemployed: No Education: Decline to Answer Difficulty w/ Childcare or Family Care: No Living arrangements: with family Occupation/Education: retired 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 MUSCULOSKELETAL: LEFT LOWER LEG SHOWING 4 X 3 CM DARK SCAB SURROUNDED BY RED SKIN WHICH IS NOT WARM, NONTENDER, NO DISCHARGE. NEUROLOGIC: ALERT AND ORIENTED ?3, AGED OR DISABLED CARE WORKER IS NORMAL TESTED, NO GROSS MOTOR DEFICIT Course Vital Signs Vital signs: Vital Signs Temperature 36.6 C 02/26/25 16:42 Pulse Rate 99 02/26/25 16:42 Respiratory Rate 18 02/26/25 16:42 Blood Pressure 195/84 H 02/26/25 16:42 Pulse Oximetry 99 02/26/25 16:42 Temperature 36.4 C L 02/27/25 04:37 Pulse Rate 61 02/27/25 04:37 Respiratory Rate 20 02/27/25 04:37 Blood Pressure 142/53 H 02/27/25 04:37 Pulse Oximetry 98 02/27/25 04:37 Oxygen Delivery Room Air 02/26/25 23:05 MDM - Wound/Laceration MDM Narrative Medical decision making narrative: PATIENT REFERRED TO OUR EMERGENCY ROOM BY HER FAMILY PHYSICIAN FOR FAILED ORAL ANTIBIOTIC FOR LEFT LOWER LEG WOUND INFECTION. VITAL SIGNS SHOWING BLOOD PRESSURE 195/84 OTHERWISE WITHIN NORMAL LIMIT PHYSICAL EXAMINATION ABOVE PATIENT STARTED ON VANCOMYCIN IV, BLOOD WORKUP TODAY INCLUDES CBC, CMP, LACTIC ACID, CRP SHOWED X-RAY OF THE LEFT LOWER LEG SHOWED NO ACUTE OSSEOUS ABNORMALITY Differential Diagnosis Differential diagnosis: Likely other (INFECTED WOUND) Medical Records Attestation: I reviewed the patient's medical records. Lab Data Attestation: I reviewed the patient's lab results. 02/27/25 05:43 02/27/25 05:43 Labs: Lab Results 02/26/25 02/27/25 Range/Units 19:11 05:43 WBC 6.5 5.3 (4.5-10.0) K/mm3 RBC 3.88 L 3.64 L (4.2-5.4) M/mm3 Hgb 11.4 L 10.7 L (12.0-15.0) g/dL Hct 34.3 L 32.5 L (37.0-47.0) % MCV 88.4 89.3 (80-100) fl MCH 29.4 29.4 (26-34) pg MCHC 33.2 32.9 (32-36) g/dl RDW 13.9 13.8 (11.5-14.5) % Plt Count 228 202 (150-375) k/mm3 MPV 8.8 8.9 (7.4-10.4) fl Immature Gran % (Auto) 0.2 0.4 (0-0.5) % Neut % (Auto) 75.0 H 53.6 (45.5-73.1) % Lymph % (Auto) 16.9 L 31.9 (18.3-44.2) % Barnwell % (Auto) 6.8 11.3 H (2.6-8.5) % Eos % (Auto) 0.3 1.3 (0-4.4) % Baso % (Auto) 0.8 1.5 H (0.2-1.2) % Lymph # (Auto) 1.10 1.69 (0.9-3.2) K/mm3 Barnwell # (Auto) 0.4 0.6 (0.1-0.6) K/mm3 Eos # (Auto) 0.0 0.1 (0-0.3) K/mm3 Baso # (Auto) 0.1 0.1 (0.0-0.1) K/mm3 Abs Immat Gran (auto) 0.01 0.02 (0.00-0.031) K/mm3 Absolute Neuts (auto) 4.9 2.8 (1.3-6.7) K/mm3 Absolute Nucleated RBC 0.000 0.000 (0.0-0.012) K/mm3 Nucleated RBC % 0.0 0.0 (0.0-0.2) % Sodium 134 L 135 L (137-145) mmol/L Potassium 4.2 3.5 (3.4-5.0) mmol/L Chloride 104 105 (98-107) mmol/L Carbon Dioxide 22 23 (22-30) mmol/L Anion Gap 8 7 (4-12) mmol/L BUN 27 H 21 H (7-17) mg/dL Creatinine 0.98 0.66 L (0.7-1.0) mg/dL Estim Creat Clear Calc 32 44 ml/min Estimated GFR 54 L > 60 (59 - ) Glucose 119 H 83 (65-110) mg/dL Lactic Acid 0.8 (0.7-2.0) mmol/L Calcium 9.9 9.5 (8.4-10.2) mg/dL Magnesium 2.1 (1.6-2.3) mg/dL Total Bilirubin 0.3 (0.2-1.3) mg/dL AST 33 (14-36) U/L ALT 21 (6-35) U/L Alkaline Phosphatase 47 (38-126) U/L C-Reactive Protein < 0.5 (<1.0) mg/dL Total Protein 7.2 (6.3-8.2) g/dL Albumin 4.4 (3.5-5.1) g/dL Imaging Data Radiologist's impression: Impressions Tibia/Fibula X-Ray 02/26/25 18:57 IMPRESSION: No acute osseous abnormality left leg. Total knee arthroplasty. Critical Care Time Critical Care Time Critical Care Time: No Discharge Plan Discharge Clinical Impression: Leg wound, left Patient Disposition: Still a Patient Condition: Stable
--- NOTE | 2025-02-26 18:54 | PC.NURSE ---
Pt. to x-ray
--- OUTSIDE RECORDS SUMMARY | 2025-02-26 18:54 | XMS_ITS | Continuity of Care Document ---
Author Organization [facility] Address [address] [place] [address] [address] [place] [address] Phone Care Team Providers Care Supervisor Show Operations Name Role Phone Rico Rawls Unavailable Unavailable Advance Directives Directive Yes / No Effective Date File Name No Information Encounters Encounter Description Practice Location Reason(s) For Visit Diagnoses Date Provider Providers Copied on Encounter [facility], [id number] [place] [address] [address], [place], [place], [id number], [place] tel:[phone] SEC [facility] No Information Dec-2 0-200 1 Tremainesy Edward. [address] [facility] , [address], [place], [address], [place]. tel:[phone] Family History Family Member Type Diagnosis Age At Onset No Information Payers Payer name Insurance type Covered republican ID Authoriza tion(s) No Information Social History [...]
--- OUTSIDE RECORDS SUMMARY | 2025-02-26 18:54 | XMS_ITS | Clinical Summary ---
Author Organization [facility] Address [address] [facility] [place] [address] Care Team Providers Care Supervisor Offset Plate Preparation Name Role Phone Dalton De Leon MD Unavailable [phone] Nazario Cornell MD Primary Care Provider [phone] Source Comments [facility],non-owned Affiliates and Associated Physician Practices is amultiple site organization consisting of ambulatory clinics and hospital sitesin [place], [place], [place] and [place]. This disclosure is being madepursuant to the Care Everywhere program and may not contain all information available regarding this patient. 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 Gender Identity Not on file Sexual Orientation [...] this topic Medical Devices Implanted Type [employer] Senior [employer] Device Identifier Shelf Expiration Date Model / Serial / Lot Cmnt Bone Cblt 40gm Hvisc Strl Implanted:Qty: 1 on 11/12/2018 by Hu oCy MD at [facility] [employer] 02/07/2020 600-15-00 0 / / [id number] Cmpnt Ptlr 28mm 1 Pg Wire Ascnt Arcm Kn Implanted:Qty: 1 on 11/12/2018 by Hu Coy MD at [facility] [employer] 11/07/2023 [id number] / / [id number] Tray Tib 63mm Kn Cocr I Beam Implanted:Qty: 1 on 11/12/2018 by Hu Coy MD at [facility] [employer] 06/15/2028 [id number] / / [id number] Cmpnt Fem Kn Rt Cr Cmnt Prm Vngrd Intlk 60mm Implanted:Qty: 1 on 11/12/2018 by Hu Coy MD at [facility] [employer] [employer] 10/01/2028 [id number] / / [id number] As Tibial Bearing 10mm X 63mm Implanted:Qty: 1 on 11/12/2018 by Hu Coy MD at [facility] [employer] 06/14/2022 [id number] / / [id number] Insurance [facility] MANAGED MEDICARE ADV Advance Directives * Full Code (Latest Code Status on File) Date Activated Date Inactivated Comments 11/12/2018 4:31 PM 11/14/2018 12:55 PM Care Teams Supervisor Offset Plate Preparation Relationship Specialty Start Date End Date Nazario Cornell MD [address] [place] [facility] [address] [place] [address] PCP - General Internal Medicine 07/27/20 Dalton De Leon MD [address] [place] [address] Internal Medicine 12/16/11
[2025-02-26 19:22] LABS: Hematocrit 34.3 % (37.0-47.0); Hemoglobin 11.4 g/dL (12.0-15.0); Immature Granulocyte Percent A 0.2 % (0-0.5); Lymphocytes Absolute Auto 1.10 K/mm3 (0.9-3.2); Mean Corpuscular HGB Conc 33.2 g/dl (32-36); Mean Corpuscular Hemoglobin 29.4 pg (26-34); Mean Corpuscular Volume 88.4 fl (80-100); Nucleated Red Blood Cells Absolute Auto 0.000 K/mm3 (0.0-0.012); Nucleated Red Blood Cells Perc 0.0 % (0.0-0.2); Platelet Count Result 228 k/mm3 (150-375); Red Blood Count 3.88 M/mm3 (4.2-5.4); White Blood Count 6.5 K/mm3 (4.5-10.0)
--- NOTE | 2025-02-26 19:22 | PC.NURSE ---
Pt. hypertensive. Denies CP. Endorses headache. States she did take her antihypertensive medication this morning.
[2025-02-26 19:43] LABS: Alanine Aminotransferase 21 U/L (6-35); Albumin Level 4.4 g/dL (3.5-5.1); Alkaline Phosphatase 47 U/L (38-126); Anion Gap 8 mmol/L (4-12); Aspartate Amino Transferase 33 U/L (14-36); Bilirubin,Total 0.3 mg/dL (0.2-1.3); Blood Urea Nitrogen 27 mg/dL (7-17); CRP < 0.5 mg/dL (<1.0); Calcium 9.9 mg/dL (8.4-10.2); Carbon Dioxide 22 mmol/L (22-30); Chloride 104 mmol/L (98-107); Estimated CRCL calculation 32 ml/min; Estimated Glomerular Filt Rate 54; Glucose 119 mg/dL (65-110); Potassium 4.2 mmol/L (3.4-5.0); Sodium 134 mmol/L (137-145); Total Protein 7.2 g/dL (6.3-8.2)
[2025-02-26] MEDS: ACETAMINOPHEN 325 MG TABLET 650 MG PO (20:54)
[2025-02-26] MEDS: VANCOMYCIN 1,500 MG/NS 500 ML 1,500 MG/500 ML BAG 250 MG IVPB (21:09)
--- NOTE | 2025-02-26 22:33 | WNDPHOTO ---
PHOTO ONLY - See Nursing Notes and/ or assessments for documentation.
--- NOTE | 2025-02-26 23:13 | PM.IMHP ---
H&P: HPI History of Present Illness Date/Time: 02/26/25 23:13 Chief Complaint: Leg infection Narrative: This is a pleasant 84-year-old female with past medical history rheumatoid arthritis, hyperlipidemia, hypertension, ulcerative colitis, insomnia, GERD, CKD, microscopic colitis, who presents to [facility] ER on 02/26/2025. She has had a wound on her left lower leg just above the ankle for about 5 weeks. Initially she had tipped over a small stool and a screw which was exposed hit her leg there was a gash. Is about half a quarter-sized. Subsequently she took cephalexin without improvement, she then took Bactrim as well. Now her family physician has referred her to the emergency department. Of note, she has a left knee replacement in 2021. As for the wound there has been surrounding redness which has been there since the beginning, it does hurt to palpation and has been warm. No pus discharge. The patient denies any fever nausea vomiting or diarrhea. A tib-fib x-ray of the left side demonstrates TKA but no acute osseous abnormality. Elevated SBP at 180, WBC 6.5, hemoglobin 11.4, BUN 27, serum creatinine 0.98 where as it was 2.02 on 02/17/2025. She was given vancomycin. Review of Systems Review of Systems: All systems reviewed & are unremarkable except as noted in HPI and below (Subjective/HPI) PMFSH Past Medical History Medical History Rectal bleeding Microscopic colitis Rheumatoid arthritis Colitis Hiatal hernia Appetite loss Abdominal tenderness Bloating Early satiety Nausea and vomiting Arthritis Hyperlipidemia Hypertension Ulcerative colitis Diarrhea Rash GERD (gastroesophageal reflux disease) Surgical History Surgical History Hx of knee surgery Family History Family History Mother Family history of osteoporosis Family history of arthritis Father Hypertension Sibling Family history of Parkinson's disease Social History Social History Smoking status: Never smoker Second hand tobacco smoke exposure: No Alcohol intake: never Substance use: never Substance use type: does not use Do You Feel Safe in your Home?: Yes Lack of Transportation: No Lack of Food: Never True Current Housing: I Have Housing Concerned About Future Housing: No Difficulty Paying Gas/Electric Bills: No Difficulty Paying for Meds: No Currently Unemployed: No Education: Decline to Answer Difficulty w/ Childcare or Family Care: No Living arrangements: with family Occupation/Education: retired 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[employer] Gender identity (if verbalized by the patient): Female Spiritual care concerns: No Meds Home Medications and Allergies Home Medications ?Medication ?Instructions ?Recorded ?Confirmed ?Type atorvastatin 10 mg tablet 10 mg PO DAILY 06/21/19 02/26/25 History nifedipine 30 mg tablet,extended 30 mg PO DAILY 06/21/19 02/26/25 History release 24 hr levothyroxine 100 mcg tablet 75 mcg PO DAILY 04/09/20 02/26/25 History multivit with minerals-iron 18 1 tablet PO DAILY 04/09/20 02/26/25 History mg-folic ac 400 mcg-vit K 25 mcg tablet (Adults Multivitamin) zolpidem 10 mg tablet 10 mg PO HS PRN Insomnia 04/09/20 02/26/25 History tramadol 50 mg tablet (Ultram) 50 mg PO TID PRN Pain, Moderate 05/12/22 02/26/25 History gabapentin 300 mg capsule 300 mg PO BID 03/21/24 02/26/25 History tofacitinib 5 mg tablet (Xeljanz) 5 mg PO DAILY 03/21/24 02/26/25 History prednisone 2.5 mg tablet 5 mg PO DAILY 02/01/25 02/26/25 History terbinafine HCl 250 mg tablet 250 mg PO DAILY 02/01/25 02/26/25 History cephalexin 250 mg capsule 250 mg PO HS 02/26/25 02/26/25 History omeprazole 40 mg capsule,delayed 40 mg PO PRN PRN GERD 02/26/25 02/26/25 History release Allergies Allergy/AdvReac Type Severity Reaction Status Date / Time No Known Allergies Allergy Verified 02/01/25 09:05 Vital Signs Vital Signs - 24 hr 02/26/25 16:42 02/26/25 19:13 02/26/25 20:56 Temperature 97.9 F Pulse Rate 99 80 85 Respiratory Rate 18 16 14 Blood Pressure 195/84 H 183/77 H 174/75 H Pulse Oximetry 99 98 98 Oxygen Delivery Room Air 02/26/25 21:45 02/26/25 22:38 02/26/25 22:55 Temperature 97.1 F L Pulse Rate 79 73 78 Respiratory Rate 14 16 Blood Pressure 175/140 H 200/86 H Pulse Oximetry 100 100 Oxygen Delivery 02/26/25 22:59 02/26/25 23:05 02/26/25 23:12 Temperature Pulse Rate 69 65 Respiratory Rate Blood Pressure 192/57 H 178/64 H Pulse Oximetry Oxygen Delivery Room Air Exam Const: General: comfortable and no acute distress Other: A&O x3 HENMT: Mouth: Yes moist mucous membranes Eyes: Pupils: Equal, round and reactive pupils present Neck: Neck: supple Resp: Effort & Inspection: normal respiratory effort Auscultation: clear to auscultation bilaterally Cardio: Rate: regular rate Rhythm: regular rhythm GI: Inspection: non-distended GI Palp: Yes Soft to palpation Auscultation: normal bowel sounds : General: Yes bladder normal to palpation Neuro: Motor exam (neuro): 5/5 motor strength present throughout Extrem: Other: Pedal pulses palpable. No edema. Anterolateral aspect of the left lower extremity above the ankle with a quarter-sized scab, no active drainage. Surrounding erythema with tenderness to palpation and warmth compared to the contralateral leg. H&P: Results Labs Labs: Short CBC 02/26/25 Range/Units 19:11 WBC 6.5 (4.5-10.0) K/mm3 Hgb 11.4 L (12.0-15.0) g/dL Hct 34.3 L (37.0-47.0) % Plt Count 228 (150-375) k/mm3 BMP 02/26/25 19:11 Sodium 134 L Potassium 4.2 Chloride 104 Carbon Dioxide 22 BUN 27 H Creatinine 0.98 Glucose 119 H Calcium 9.9 Liver Function 02/26/25 Range/Units 19:11 Total Bilirubin 0.3 (0.2-1.3) mg/dL AST 33 (14-36) U/L ALT 21 (6-35) U/L Alkaline Phosphatase 47 (38-126) U/L Albumin 4.4 (3.5-5.1) g/dL Assessment and Plan Assessment and plan (1) Uncontrolled hypertension: Code(s): I10 - Essential (primary) hypertension Status: Acute (2) Cellulitis: Code(s): L03.90 - Cellulitis, unspecified Status: Acute Plan This is a pleasant 84-year-old female with past medical history rheumatoid arthritis, hyperlipidemia, hypertension, ulcerative colitis, insomnia, GERD, CKD, microscopic colitis, who presents to [facility] ER on 02/26/2025. She has had a wound on her left lower leg just above the ankle for about 5 weeks. Initially she had tipped over a small stool and a screw which was exposed hit her leg there was a gash. Is about half a quarter-sized. Subsequently she took cephalexin without improvement, she then took Bactrim as well. Now her family physician has referred her to the emergency department. Of note, she has a left knee replacement in 2021. As for the wound there has been surrounding redness which has been there since the beginning, it does hurt to palpation and has been warm. No pus discharge. The patient denies any fever nausea vomiting or diarrhea. A tib-fib x-ray of the left side demonstrates TKA but no acute osseous abnormality. Elevated SBP at 180, WBC 6.5, hemoglobin 11.4, BUN 27, serum creatinine 0.98 where as it was 2.02 on 02/17/2025. She was given vancomycin. ----- Cellulitis which has failed outpatient oral antibiotic therapy. Continue vancomycin pharmacy to dose. No active drainage/open wound available to culture. Have asked the nurse to ozzy the borders of the erythema with a surgical marker. Blood cultures have been taken in the ER Uncontrolled hypertension. Patient complains of bad right hip pain which is chronic for her due to arthritis and status post hip replacement, restart OFFICE MACHINES SALES REPRESENTATIVE tramadol. Give labetalol 20 mg IV x1 and restart her OFFICE MACHINES SALES REPRESENTATIVE nifedipine 30 mg p.o. q.day. continue to cycle blood pressure to monitor for improvement. The patient wishes to be full code. Saline lock IV. Heart healthy diet. Ambulate with assistance. Hospitalist [facility] Advance Care Plan I have confirmed that the patient's Advanced Care Plan is present, code status is documented, or surrogate decision maker is listed in patient medical record.: Yes Medication Reconciliation I have utilized all available resources to obtain, update and review the patients current medications (includes all prescriptions, OTC, herbals, cannabis, and nutritional supplements).: Yes
[2025-02-26] MEDS: ZOLPIDEM TARTRATE (*CRX) 5 MG TABLET 10 MG PO (23:15)
[2025-02-26] MEDS: traMADol HCL (*CRX) 50 MG TABLET PO (23:16)
[2025-02-27 04:37] VITALS: BP 142/53; PULSE 61; RESP 20; TEMP 36.4; O2SAT 98
[2025-02-27] MEDS: LEVOTHYROXINE SODIUM 75 MCG TABLET PO (05:50)
[2025-02-27 06:07] LABS: Hematocrit 32.5 % (37.0-47.0); Hemoglobin 10.7 g/dL (12.0-15.0); Immature Granulocyte Percent A 0.4 % (0-0.5); Lymphocytes Absolute Auto 1.69 K/mm3 (0.9-3.2); Mean Corpuscular HGB Conc 32.9 g/dl (32-36); Mean Corpuscular Hemoglobin 29.4 pg (26-34); Mean Corpuscular Volume 89.3 fl (80-100); Nucleated Red Blood Cells Absolute Auto 0.000 K/mm3 (0.0-0.012); Nucleated Red Blood Cells Perc 0.0 % (0.0-0.2); Platelet Count Result 202 k/mm3 (150-375); Red Blood Count 3.64 M/mm3 (4.2-5.4); White Blood Count 5.3 K/mm3 (4.5-10.0)
[2025-02-27 06:32] LABS: Anion Gap 7 mmol/L (4-12); Blood Urea Nitrogen 21 mg/dL (7-17); Calcium 9.5 mg/dL (8.4-10.2); Carbon Dioxide 23 mmol/L (22-30); Chloride 105 mmol/L (98-107); Estimated CRCL calculation 44 ml/min; Estimated Glomerular Filt Rate > 60; Glucose 83 mg/dL (65-110); Magnesium 2.1 mg/dL (1.6-2.3); Potassium 3.5 mmol/L (3.4-5.0); Sodium 135 mmol/L (137-145)
--- NOTE | 2025-02-27 08:54 | P.PNIM_ITS ---
Progress Note: A&P Assessment and Plan (1) Cellulitis: Code(s): L03.90 - Cellulitis, unspecified Status: Acute Assessment and Plan: * Monitor vital signs, I&Os, neuro status and patient is a fall risk * Monitor serum electrolytes, CBC, cultures, WBC and temp curve * Consider a consult with wound care or general surgeon * Consult pharmacy for vancomycin dosing, Vancomycin 1 gram IV q12H, obtain trough level prior to the 4th dose * Gentle IV fluids resuscitation (2) Uncontrolled hypertension: Code(s): I10 - Essential (primary) hypertension Status: Acute Assessment and Plan: * Patient's blood pressure was reviewed on 02/27 * Blood pressure remains well controlled. * Will continue current medications. * 142/53 Subjective Date/time seen: 02/27/25 08:54 Interval history: 84-year-old female with past medical history rheumatoid arthritis, hyperlipidemia, hypertension, ulcerative colitis, insomnia, GERD, CKD, microscopic colitis, who presents to [facility] ER on 02/26/2025. 02/27/2025 Review of Systems Review of Systems: All systems reviewed & are unremarkable except as noted in HPI and below (Subjective/HPI) Exam Const: General: comfortable and no acute distress Other: A&O x3 HENMT: Mouth: Yes moist mucous membranes Eyes: Pupils: Equal, round and reactive pupils present Neck: Neck: supple Resp: Effort & Inspection: normal respiratory effort Auscultation: clear to auscultation bilaterally Cardio: Rate: regular rate Rhythm: regular rhythm GI: Inspection: non-distended Auscultation: normal bowel sounds : General: Yes bladder normal to palpation Bimanual exam- vagina & uterus: bladder normal to palpation Neuro: Cranial nerves: Yes Equal, round and reactive pupils present Motor exam (neuro): 5/5 motor strength present throughout Extrem: Other: Pedal pulses palpable. No edema. Anterolateral aspect of the left lower extr emity above the ankle with a quarter-sized scab, no active drainage. Surrounding erythema with tenderness to palpation and warmth compared to the contralateral leg. Objective Data Vital Signs Vital Signs: Vital Signs - 24 hr 02/26/25 16:42 02/26/25 19:13 02/26/25 20:56 Temperature 97.9 F Pulse Rate 99 80 85 Respiratory Rate 18 16 14 Blood Pressure 195/84 H 183/77 H 174/75 H Pulse Oximetry 99 98 98 Oxygen Delivery Room Air 02/26/25 21:45 02/26/25 22:38 02/26/25 22:55 Temperature 97.1 F L Pulse Rate 79 73 78 Respiratory Rate 14 16 Blood Pressure 175/140 H 200/86 H Pulse Oximetry 100 100 Oxygen Delivery 02/26/25 22:59 02/26/25 23:05 02/26/25 23:12 Temperature Pulse Rate 69 65 Respiratory Rate Blood Pressure 192/57 H 178/64 H Pulse Oximetry Oxygen Delivery Room Air 02/27/25 04:37 Temperature 97.5 F L Pulse Rate 61 Respiratory Rate 20 Blood Pressure 142/53 H Pulse Oximetry 98 Oxygen Delivery Intake/Output Intake/Output: Intake & Output 02/24/25 02/25/25 02/26/25 02/27/25 23:59 23:59 23:59 23:59 Intake Total 790 Balance 790 Meds/Results Medications: Active Medications Generic Name Dose Route Start Last Admin Trade Name Freq PRN Reason Stop Dose Admin Acetaminophen 650 mg 02/26/25 19:58 02/26/25 20:54 Acetaminophen 325 Mg Tablet PO 650 mg Q4H PRN Administration Mild Pain (1-3) or Fever Atorvastatin Calcium 10 mg 02/27/25 09:00 Atorvastatin 10 Mg Tablet PO DAILY [facility] Gabapentin 300 mg 02/27/25 09:00 Gabapentin 300 Mg Capsule PO BID [facility] Vancomycin HCl 1,250 mg in 250 mls @ 166.667 mls/hr 02/27/25 21:00 Vancomycin 1,250 Mg/Ns 250 Ml IVPB Q24H [facility] Levothyroxine Sodium 75 mcg 02/27/25 06:30 02/27/25 05:50 Levothyroxine Sodium 75 Mcg Tablet PO 75 mcg DAILY@0630 [facility] Administration Multivitamins/Minerals 1 tab 02/27/25 12:00 Multivitamins /C Lutein (Centrum Silver) Tablet *Bkc PO DAILY@1200 [facility] Nifedipine 30 mg 02/26/25 23:00 02/26/25 23:16 Nifedipine 30 Mg Tab.Er.24 PO 30 mg DAILY [facility] Administration Pantoprazole Sodium 40 mg 02/27/25 09:00 Pantoprazole 40 Mg Tablet PO Q12H PRN GERD Prednisone 5 mg 02/27/25 09:00 Prednisone 5 Mg Tablet PO DAILY [facility] Tramadol HCl 50 mg 02/26/25 22:58 02/26/25 23:16 Tramadol Hcl (*Crx) 50 Mg Tablet PO 50 mg TID PRN Administration Pain, Moderate 4-6 Zolpidem Tartrate 10 mg 02/26/25 22:58 02/26/25 23:15 Zolpidem Tartrate (*Crx) 5 Mg Tablet PO 10 mg HS PRN Administration Insomnia Radiology Results: ITS Impressions Tibia/Fibula X-Ray 02/26/25 18:57 IMPRESSION: No acute osseous abnormality left leg. Total knee arthroplasty. Labs Labs: Laboratory Results - last 24 hr 02/26/25 02/27/25 19:11 05:43 WBC 6.5 5.3 RBC 3.88 L 3.64 L Hgb 11.4 L 10.7 L Hct 34.3 L 32.5 L MCV 88.4 89.3 MCH 29.4 29.4 MCHC 33.2 32.9 RDW 13.9 13.8 Plt Count 228 202 MPV 8.8 8.9 Immature Gran % (Auto) 0.2 0.4 Neut % (Auto) 75.0 H 53.6 Lymph % (Auto) 16.9 L 31.9 [place] % (Auto) 6.8 11.3 H Eos % (Auto) 0.3 1.3 Baso % (Auto) 0.8 1.5 H Lymph # (Auto) 1.10 1.69 [place] # (Auto) 0.4 0.6 Eos # (Auto) 0.0 0.1 Baso # (Auto) 0.1 0.1 Abs Immat Gran (auto) 0.01 0.02 Absolute Neuts (auto) 4.9 2.8 Absolute Nucleated RBC 0.000 0.000 Nucleated RBC % 0.0 0.0 Sodium 134 L 135 L Potassium 4.2 3.5 Chloride 104 105 Carbon Dioxide 22 23 Anion Gap 8 7 BUN 27 H 21 H Creatinine 0.98 0.66 L Estim Creat Clear Calc 32 44 Estimated GFR 54 L > 60 Glucose 119 H 83 Lactic Acid 0.8 Calcium 9.9 9.5 Magnesium 2.1 Total Bilirubin 0.3 AST 33 ALT 21 Alkaline Phosphatase 47 C-Reactive Protein < 0.5 Total Protein 7.2 Albumin 4.4 Quality VTE Prophylaxis VTE prophylaxis: pharmacologic ordered
[2025-02-27] MEDS: MUPIROCIN 2% OINT 22 GM TUBE 1 APPLIC TOPICAL (09:57)
[2025-02-27] MEDS: GABAPENTIN 300 MG CAPSULE PO (09:57)
[2025-02-27] MEDS: ATORVASTATIN 10 MG TABLET PO (09:57)
--- NOTE | 2025-02-27 11:28 | P.DS_ITS ---
DS: Admitting Diagnosis Discharge Date 02/27/2025 Admitting Diagnosis Lower extremity wound DS: Discharge Diagnosis Discharge Diagnosis (1) Uncontrolled hypertension: Code(s): I10 - Essential (primary) hypertension Status: Acute (2) Leg wound, left: Code(s): S81.802A - Unspecified open wound, left lower leg, initial encounter Status: Acute DS: Summary Hospital Course Reason for hospitalization: Lower leg wound, left Hospital Course: This is a pleasant 84-year-old female with past medical history rheumatoid arthritis, hyperlipidemia, hypertension, ulcerative colitis, insomnia, GERD, CKD, microscopic colitis, who presents to [facility] ER on 02/26/2025. She has had a wound on her left lower leg just above the ankle for about 5 weeks. Initially she had tipped over a small stool and a screw which was exposed hit her leg there was a gash. Is about half a quarter-sized. Subsequently she took cephalexin without improvement, she then took Bactrim as well. Now her family physician has referred her to the emergency department. Of note, she has a left knee replacement in 2021. As for the wound there has been surrounding redness which has been there since the beginning, it does hurt to palpation and has been warm. No pus discharge. The patient denies any fever nausea vomiting or diarrhea. A tib-fib x-ray of the left side demonstrates TKA but no acute osseous abnormality. Elevated SBP at 180, WBC 6.5, hemoglobin 11.4, BUN 27, serum creatinine 0.98 where as it was 2.02 on 02/17/2025. Upon examination, left lower extremity did not appear to have evidence of infection. There was a 1cm x 2.3cm x 0.3cm draining abrasion/wound noted to the anterior left lower leg. Wound care consulted - agree that no signs/symptoms of active infection/cellulitis. Per their recommendations: Received orders for mupirocin ointment to provide topical antimicrobial coverage from a moist wound healing. Number plaque straight through to protect periwound tissue, promote moist wound healing, then cover with dry dressing. No indications for further antibiotic coverage beyond mupirocin ointment. Pt is afebrile without leukocytosis. She is neurovascularly intact. She can be safely discharged at this time with appropriate followup in the outpt setting with her PCP. Pt is amenable to this plan - plan for discharge home at this time. Status at Discharge Functional status at discharge: independent ambulation Overall status at discharge: patient is back to baseline Time Spent with Patient Time attestation: Total time spent providing and/or coordinating discharge services: 41 Exam Narrative: Gen - well appearing female in no acute respiratory distress who is nontoxic- appearing lying semi recumbent in bed HEENT - normocephalic. Atraumatic. Pupils equal round and reactive. Nares patent. Neck - neck was supple. No dominant adenopathy, thyromegaly or masses. Chest - lungs are clear to auscultation bilaterally. No wheezes or crackles. CV - heart was regular rate and rhythm. S1-S2. No murmurs gallops or rubs. Abd - abdomen was soft. Nontender. Nondistended. Positive bowel sounds. Ext - no clubbing, cyanosis or edema. 2+ DP pulses bilaterally. Neuro - patient is alert and oriented x4. Strength is 5/5 in both upper and lower extremities. Speech is clear. Psych - normal mood and affect. Patient is pleasant and cooperative. Skin - warm and dry. Pedal pulses palpable. No edema. Anterolateral aspect of the left lower extremity above the ankle with a quarter-sized scab, no active drainage/warmth. Minimal erythema with tenderness to palpation compared to the contralateral leg. Const: Other: A&O x3 Extrem: Other: Pedal pulses palpable. No edema. Anterolateral aspect of the left lower extremity above the ankle with a quarter-sized scab, no active drainage. Surrounding erythema with tenderness to palpation and warmth compared to the contralateral leg. DS: Data Data Completed and Pending Labs on day of discharge: Labs from last 24 hours 02/27/25 02/26/25 05:43 19:11 WBC 5.3 6.5 RBC 3.64 L 3.88 L Hgb 10.7 L 11.4 L Hct 32.5 L 34.3 L MCV 89.3 88.4 MCH 29.4 29.4 MCHC 32.9 33.2 RDW 13.8 13.9 Plt Count 202 228 MPV 8.9 8.8 Immature Gran % (Auto) 0.4 0.2 Neut % (Auto) 53.6 75.0 H Lymph % (Auto) 31.9 16.9 L [place] % (Auto) 11.3 H 6.8 Eos % (Auto) 1.3 0.3 Baso % (Auto) 1.5 H 0.8 Lymph # (Auto) 1.69 1.10 [place] # (Auto) 0.6 0.4 Eos # (Auto) 0.1 0.0 Baso # (Auto) 0.1 0.1 Abs Immat Gran (auto) 0.02 0.01 Absolute Neuts (auto) 2.8 4.9 Absolute Nucleated RBC 0.000 0.000 Nucleated RBC % 0.0 0.0 Sodium 135 L 134 L Potassium 3.5 4.2 Chloride 105 104 Carbon Dioxide 23 22 Anion Gap 7 8 BUN 21 H 27 H Creatinine 0.66 L 0.98 Estim Creat Clear Calc 44 32 Estimated GFR > 60 54 L Glucose 83 119 H Lactic Acid 0.8 Calcium 9.5 9.9 Magnesium 2.1 Total Bilirubin 0.3 AST 33 ALT 21 Alkaline Phosphatase 47 C-Reactive Protein < 0.5 Total Protein 7.2 Albumin 4.4 Discharge Plan Discharge Attending physician on discharge: Yonatan Del Castillo Consulting providers: Marcell Rodriguez Discharging Clinician: Marcell Rodriguez Anticipated Discharge Date/Time: 02/27/25 11:24 Patient Disposition: Home Activity: as tolerated Diet: heart healthy Discharge Instructions: Discharge disposition: Home Take medications as prescribed. You were seen by wound care who recommended continue mupirocin ointment to provide topical antimicrobial coverage. Mepilex has also been provided to promote wound healing. Monitor blood pressures Take caution while standing, rising, or moving Change positions slowly taking a break between each position change If you standing feel dizzy sit back down and take a break Encouraged to continue with yearly vaccinations Return to the emergency department if he developed sudden shortness of breath, chest pain, nausea, vomiting, upset stomach or intractable diarrhea Return to the emergency department if you develop fever greater than 101.5 Follow-up with the primary care physician within 1-2 weeks Thank you for [facility] for your healthcare needs Patient Instructions: Antibiotic Form Patient Language: Jordanian Stand Alone Forms: General Discharge Information Follow-up/Referrals: Kraig,MD Nazario [Primary Care Provider] - Discharge Medications: Continued terbinafine HCl 250 mg tablet 250 mg PO DAILY prednisone 2.5 mg tablet 5 mg PO DAILY atorvastatin 10 mg Tablet 10 mg PO DAILY nifedipine 30 mg Tablet Extended Release 24hr 30 mg PO DAILY Xeljanz 5 mg tablet 5 mg PO DAILY gabapentin 300 mg capsule 300 mg PO BID levothyroxine 100 mcg tablet 75 mcg PO DAILY zolpidem 10 mg tablet 10 mg PO HS PRN (Reason: Insomnia) Adults Multivitamin 18 mg iron-400 mcg-25 mcg Tablet 1 tablet PO DAILY omeprazole 40 mg capsule,delayed release(DR/EC) 40 mg PO PRN PRN (Reason: GERD) Discontinued cephalexin 250 mg capsule 250 mg PO HS tramadol [Ultram] 50 mg Tablet 50 mg PO TID PRN (Reason: Pain, Moderate) Date of admission: 02/27/25 08:03 Primary Care Provider: Soy*Nazario Admitting Provider: Priyanka Tony Attending physician on admission: Priyanka Tony Condition: Stable
== END 2025-02-27 11:40 | disposition home or self-care (01) | DRG 605 ==
LOC: ANHED 19:46 → ANH3MEDSUR 20:43
PROVIDERS: Admitting Provider General Practice; Emergency Provider Emergency Medicine; PCP Internal Medicine; Visit Provider Family Medicine
DX: S81.802A Unspecified open wound, left lower leg, initial encounter (principal); L03.116 Cellulitis of left lower limb; I12.9 Hypertensive chronic kidney disease with stage 1 through stage 4 chronic kidney disease, or unspecified chronic kidney disease; N18.9 Chronic kidney disease, unspecified; E03.9 Hypothyroidism, unspecified; K21.9 Gastro-esophageal reflux disease without esophagitis; G47.00 Insomnia, unspecified; E78.5 Hyperlipidemia, unspecified; G70.00 Myasthenia gravis without (acute) exacerbation; K58.9 Irritable bowel syndrome, unspecified; I73.00 Raynaud's syndrome without gangrene; Z79.899 Other long term (current) drug therapy; Z96.652 Presence of left artificial knee joint
CPT/HCPCS: 36415; 73590; 80048; 80053; 83605; 83735; 85025; 86140; 87040; 96365; 96366; 96375; 99285; A9270; G0378; J3373; J7512